=== PATIENT | female | born 1940 | race Hispanic/Latino ===

== ENCOUNTER 2025-01-19 03:42 | Inpatient (IN) | payer MEDICARE, MEDICAID ==
[~2025-01-19] VITALS: Ht 154.9 cm; Wt 48.9 kg
[2025-01-19] VITALS (25 sets, daily range): BP systolic 118–144; BP diastolic 58–72; PULSE 77–88; RESP 14–27; TEMP 97.4–98.2; O2SAT 95–100
[~2025-01-19 03:42] MED LIST: ALBU18HF7 IH; ATOR20TA65 PO; ERGO500093 PO; ESCI5TAB16 PO; FOLI0.8T22 PO; GABA-529 PO; IRON1CAP32 PO; LEVO75CA6 PO; METO25TA6 PO; PROM118S5 PO
--- NOTE | 2025-01-19 03:57 | ERN ---
ED Note History of Present Illness Stated Complaint: SHORTNESS OF BREATH Chief Complaint: Shortness of Breath Time Seen by MD: 03:48 Dictation: This is an 84-year-old female who presented to the emergency department with shortness of breaths. Patient goes to dialysis on Thursday and Saturdays for which she reported that after dialysis she has been feeling very tired. Patient is due for dialysis today however she could not wait until then and became quite dyspneic and hence she was transferred to the emergency room via EMS for further management. Patient is chronically ill-appearing but answers simple questions appropriately. No cough sputum or hemoptysis. No fevers chills or rigors. Temperature 98 pulse 86 respirations 18 blood pressure 140/60 with a pulse o ximetry of 99% on room air Her chronic medical problems include end-stage renal disease, hypertension, and hypothyroidism Allergies: Coded Allergies: iodine (Unverified Allergy, Unknown, 08/25/23) Home Meds Reported Medications Albuterol Sulfate (Albuterol Sulfate) 2.5 Mg/3 Ml (0.083 %) Vial.neb, 1 VIAL NEB Q4HPRN PRN for wheezing, #150 ML 0 Refills 01/19/25 Citalopram Hydrobromide (Citalopram HBr) 10 Mg Tablet, 1 TAB PO DAILY for 30 Days, #30 TAB 0 Refills 25 Midodrine HCl (Midodrine HCl) 5 Mg Tablet, 5 MG PO AD, TAB 25 Folic Acid/Vitamin B Comp W-C (Salud-Miriam Tablet) 0.8 Mg Tablet, 1 TAB PO DAILY for 30 Days, #30 TAB 0 Refills 25 Famotidine (Famotidine) 10 Mg Tablet, 1 TAB PO DAILY for 30 Days, #30 TAB 0 Refills 25 Zinc Sulfate (Zinc Sulfate) 50 Mg Zinc (220 Mg) Tablet, 1 TAB PO DAILY for 30 Days, #30 TAB 0 Refills 1525 Calcium Carbonate (Calcium Carbonate) 500 Mg Calcium (1250 Mg) Tablet, 1 TAB PO AD for 30 Days, #60 TAB 0 Refills 25 Apixaban (Eliquis) 2.5 Mg Tablet, 2.5 MG PO AM, TAB 25 Ipratropium/Albuterol Sulfate (Iprat-Albut 0.5-3(2.5) mg/3 ml) 0.5 Mg-3 Mg (2.5 Mg Base)/3 Ml Ampul.neb, 1 VIAL NEB BID PRN for SHORTNESS OF BREATH/WHEEZING for 30 Days, #180 ML 0 Refills 01/19/25 D-Methorphan Hb/Prometh HCl (Promethazine-Dm Syrup) 6.25 Mg-15 Mg/5 Ml Syrup, 5 ML PO Q6HPRN PRN for COUGH MDD 15MG 12/28/24 Folic Acid/Vitamin B Comp W-C (Salud-Miriam Tablet) 0.8 Mg Tablet, 1 TAB PO DAILY 12/28/24 Iron Fum & P/FA/Vit B & C No.9 (Integra Plus Capsule) 125 Mg Iron-1 Mg Capsule, 1 CAP PO DAILY for 30 Days, #30 CAP 0 Refills 10/05/24 Atorvastatin Calcium (Atorvastatin Calcium) 20 Mg Tablet, 1 TAB PO DAILY for 30 Days, #30 TAB 0 Refills 10/05/24 Albuterol Sulfate (Ventolin Hfa) 90 Mcg Hfa.aer.ad, 2 PUFF IH Q4HPRN PRN for wheezing for 30 Days, #18 GM 0 Refills 10/05/24 Ergocalciferol (Vitamin D2) (Vitamin D2) 1,250 Mcg (21972 Unit) Capsule, 1 CAP PO QWEEK for 28 Days, #4 CAP 0 Refills 10/05/24 Escitalopram Oxalate (Escitalopram Oxalate) 5 Mg Tablet, 1 TAB PO DAILY for 30 Days, #30 TAB 0 Refills 10/05/24 Metoprolol Tartrate (Metoprolol Tartrate) 25 Mg Tablet, 1 TAB PO BID for 30 Days, #60 TAB 0 Refills 10/05/24 Levothyroxine Sodium (Levothyroxine) 75 Mcg Capsule, 1 TAB PO DAILY for 30 Days, #30 CAP 0 Refills 10/05/24 Gabapentin (Gabapentin) 100 Mg Capsule, 1 CAP PO BID for 30 Days, #90 CAP 0 Refills 10/05/24 Past Medical History Past Medical History: High Cholesterol, Hypertension Additional Past Medical Hx: CKD ON DIALYSIS Surgical History: Cholecystectomy, Pacer/AICD, Family History: Negative Social History: Negative History: Not Applicable RN Note Reviewed/Agreed w/PFSH: Yes Review of System Dictation Constitutional: Negative for fever,chills, and weight loss Eyes: Negative for injury, pain,redness, and discharge ENT: Negative for injury,pain or swelling Cardiovascular: Negative for chest pain, palpitations, and edema Respiratory: Positive for shortness of breath, denies cough, and wheezing, Abdomen/GI: Negative for abdominal pain, nausea, vomiting, diarrhea, and constipation Back: Negative for injury and pain : Negative for injury, bleeding and discharge MS/Extremity: Negative for injury and deformity Skin: Negative for rash, and discoloration Neuro: Negative for headache, weakness, numbness, tingling, and seizure Psych: Negative for suicide ideation, homicidal ideation, and hallucinations Initial Vital Sign VS Vital Signs Date Time Temp Pulse Resp B/P (MAP) Pulse Ox O2 Delivery O2 Flow Rate FiO2 01/19/25 04:17 98.4 86 18 140/60 99 Room Air* 0 21 Physical Exam Dictation General: Very chronically ill-appearing elderly female who is sleepy tachypneic Head/Face: Normocephalic, atraumatic Eyes: PERRL, EOMI, vision at baseline ENT: oral cavity clear, TMs clear, no signs of infection Neck: Trachea midline, supple, no nuchal rigidity Cardiovascular: RRR, normal S1/S2, No MRGs, no JVD Respiratory: Decreased breath sounds bilaterally with crackles and rhonchi Abdomen: Soft, non-tender, non-distended, normal bowel sounds, no guarding or rebound. Skin: Warm, dry, normal turgor, no rash MS/Extremity: Pulses equal, no cyanosis, neurovascular intact, FROM Neuro: COAx4, GCS 15, strength 5/5, CN 2-12 intact, normal cerebellar exam, normal gait, Psych: Normal behavior, mood, and affect normal Extremities-trace edema without any palpable cords, Homans sign is negative Results (Laboratory/Radiology) Laboratory/Radiology Laboratory Tests Test 01/19/25 04:03 01/19/25 04:17 White Blood Count 11.5 K/uL (4.8-10.8) H Red Blood Count 1.76 MIL/uL (4.00-5.50) L Hemoglobin 5.2 g/dL (12.0-16.0) *L Hematocrit 16.1 % (36-48) *L Mean Corpuscular Volume 91.5 fL (79-99) Mean Corpuscular Hemoglobin 29.5 pg (27.0-33.0) Mean Corpuscular Hemoglobin Concent 32.3 g/dL (32.0-36.0) Red Cell Distribution Width 15.6 % (11.0-15.5) H Platelet Count 263 K/uL (130-400) Mean Platelet Volume 9.9 fL (7.5-10.5) Immature Granulocyte % (Auto) 1.0 % (0-1) Neutrophils (%) (Auto) 86.3 % (40.0-77.0) H Lymphocytes (%) (Auto) 8.5 % (21.0-51.0) L Monocytes (%) (Auto) 3.8 % (3.0-13.0) Eosinophils (%) (Auto) 0.2 % (0.0-8.0) Basophils (%) (Auto) 0.2 % (0.0-5.0) Neutrophils # (Auto) 9.9 K/uL (1.8-7.7) H Lymphocytes # (Auto) 1.0 K/uL (1.0-4.8) Monocytes # (Auto) 0.4 K/uL (0.1-1.0) Eosinophils # (Auto) 0.02 K/uL (0.00-0.70) Basophils # (Auto) 0.02 K/uL (0.00-0.20) Absolute Immature Granulocyte (auto 0.12 K/uL (0-1) Nucleated Red Blood Cells 0.0 % (0.0-0.19) White Cell Morphology Comment See comments Sodium Level 140 mmol/L (136-145) Potassium Level 3.3 mmol/L (3.5-5.1) L Chloride Level 99 mmol/L (101-111) L Carbon Dioxide Level 30 mmol/L (21-32) Blood Urea Nitrogen 21 mg/dL (7-18) H Creatinine 2.8 mg/dL (0.5-1.0) H Glomerular Filtration Rate Calc 16 mL/min (>90) Random Glucose 122 mg/dL (70-105) H Total Calcium 10.3 mg/dL (8.5-10.1) H Total Creatine Kinase 111 U/L (21-232) # Troponin I High Sensitivity 196.9 ng/L (4-50) *H B-Type Natriuretic Peptide 4590 pg/mL (0-100) H Blood Gas Specimen Type Arterial Arterial Blood pH 7.540 (7.350-7.450) Arterial Blood Partial Pressure CO2 36 mmHg (32-45) Arterial Blood Partial Pressure O2 62.3 mmHg (83.0-108.0) L Arterial Blood HCO3 29.9 mmol/L (21.0-28.0) H Arterial Blood Oxygen Saturation 94.3 % (94.0-98.0) Arterial Blood Base Excess 7.3 mmol/L (-2.0-3.0) H Blood Gas Temperature 37.0 CELSIUS (35.5-37.0) Blood Gas Flow-by 3.00 L/min (0.00-15.00) Blood Gas Vent Mode NC (ROOM AIR) FiO2 32.0 % Blood Gas Specimen Comment RB Labs Reviewed?: Yes ED Course ED Course Orders Procedure Category Date Status Time O2 Nc Keep Sats CPOE 01/19/25 Transmitted Greater 92% 03:49 Notify Md: Spo2 < 88% CPOE 01/19/25 Transmitted 03:49 Cbc With Differential LAB 01/19/25 In Process 03:49 B-Type Natriuretic LAB 01/19/25 In Process Peptide 03:49 Cardiac Panel LAB 01/19/25 In Process 03:49 Chest 1vw RAD 01/19/25 Taken 03:49 12 Lead Ekg Tracing- EKG 01/19/25 Logged Technical 03:49 Basic Metabolic Panel LAB 01/19/25 In Process 03:49 Type And Screen BBK 01/19/25 In Process 04:04 Arterial Blood Gas RT 01/19/25 Transmitted 04:15 Arterial Blood Gas LAB 01/19/25 Complete 04:17 Bipap Settings RT 01/19/25 Transmitted 04:25 Occult Blood Stool LAB 01/19/25 Transmitted Single Only 04:54 Pantoprazole 40mg Inj PHA 01/19/25 Transmitted (Protonix 40mg Inj 05:00 Vital Signs Date Time Temp Pulse Resp B/P (MAP) Pulse Ox O2 Delivery O2 Flow Rate FiO2 01/19/25 04:19 87 27 32 01/19/25 04:17 98.4 86 18 140/60 99 Room Air* 0 21 We will perform diagnostic labs, advanced imaging and administer medications according to the patient's complaint. Once the results are available, will review and personally interpreted the labs to rule out any acute life- threatening emergency the trach require immediate intervention and treatment. I will then re-evaluate the patient after treatment and diagnostic exams have return to determine whether the patient requires any further testing, can safely be discharged home or need further admission to hospital for additional treatment and evaluation. Labs reviewed CBC shows a white count of 11.5 hemoglobin of 5.2 hematocrit 16 platelets 263. BNP 7 shows a hemoglobin of 3.3 BUN and creatinine of 21 and 2.8. Chest x-ray shows bilateral diffuse infiltrates BiPAP initiated to reduce the work of breathing. Arterial blood gas showed a pH of 7.54 pCO2 of 36 PO2 of 62 Stool guaiac requested Type and screen and we will transfuse 2 units PRBC with the dialysis as at this time the blood pressure is very well-maintained at 140/60 Patient will be admitted to the intensive care unit for further management 5:20 a.m. patient accepted by Dr. Zaragoza, for admission and management Medical Decision Making MDM MDM: Differential diagnosis: Pulmonary edema, inadequate dialysis maybe needing readjustment of dry weight, pneumonia, aspiration Rationale: Tests considered and ordered secondary to shared decision making include: labs, ECG and radiology Previous outside records reviewed: Old ER visits. Risk of complication and/or morbidity or mortality of patient management: None Medications-Per medication reconciliation Need for hospitalization: Patient does meet criteria for hospitalization. Need for emergency major/minor surgery: No There are no social concerns with this patient. Prescription drug management Prescriptions will include symptomatic care Patient's prior external medical records from other ER visits were reviewed by me as indicated. Prior testing and results from previous visits were reviewed. Prior tests were taken into account with medical decision making and resource utilization, independent historian/historians were used to obtain complete medical history. I independently interpreted the test that were performed, results were reviewed by me and considered findings on radiology if ordered. Medical management and examination interpretation discussions were had by me with other qualified healthcare professionals as indicated for the patient's care. Problem List Problem List: (1) Respiratory distress (2) Pulmonary edema (3) End-stage renal disease on hemodialysis (4) Severe anemia DX & DISP Disposition: Inpatient Decision to Admit Time: 03:57 Departure Impression: Primary Impression: Respiratory distress Additional Impressions: Pulmonary edema, End-stage renal disease on hemodialysis Condition: Stable Additional Instructions: Patient was informed of all the diagnostic labs and procedures conducted in the emergency room today and demonstrated understanding of the results. I personally reviewed and interpreted all the diagnostic exams performed in the ER today. The patient will be admitted to the hospital for further treatment and evaluation. Disposition-admit to facility Condition-stable/guarded Course-uncertain at this time Pain status-decreased Assessment-exam unchanged Admission Certification- I certify that the patients status is appropriate and is based on my best clinical judgment and the patient's condition as documented in the medical records Referrals: FELIPA KILPATRICK MD (PCP) BARI TOBIAS MD January 19, 2025 03:57
[2025-01-19 04:19] LABS: ABG BASE EXCESS 7.3 mmol/L (-2.0-3.0); ABG HCO3 29.9 mmol/L (21.0-28.0); ABG OXYGEN SATURATION 94.3 % (94.0-98.0); ABG PCO2 36 mmHg (32-45); PO2, ARTERIAL BG 62.3 mmHg (83.0-108.0); VENT MODE, BG NC (ROOM AIR)
[2025-01-19 04:26] LABS: BASOPHILS # (AUTO) 0.02 K/uL (0.00-0.20); BASOPHILS % (AUTO) 0.2 % (0.0-5.0); EOSINOPHILS # (AUTO) 0.02 K/uL (0.00-0.70); EOSINOPHILS % (AUTO) 0.2 % (0.0-8.0); IMMATURE GRANULOCYTE ABSOLUTE 0.12 K/uL (0-1); LYMPHOCYTES % (AUTO) 8.5 % (21.0-51.0); MEAN CORPUSCULAR HEMOGLOBIN 29.5 pg (27.0-33.0); MEAN CORPUSCULAR HGB CONC 32.3 g/dL (32.0-36.0); MEAN CORPUSCULAR VOLUME 91.5 fL (79-99); MONOCYTES # (AUTO) 0.4 K/uL (0.1-1.0); MONOCYTES % (AUTO) 3.8 % (3.0-13.0); NEUTROPHILS # (AUTO) 9.9 K/uL (1.8-7.7); NEUTROPHILS % (AUTO) 86.3 % (40.0-77.0); PLATELET COUNT (AUTO) 263 K/uL (130-400); RED BLOOD CELL COUNT(AUTO) 1.76 MIL/uL (4.00-5.50); RED CELL DISTRIBUTION WIDTH 15.6 % (11.0-15.5); WHITE BLOOD COUNT (AUTO) 11.5 K/uL (4.8-10.8)
[2025-01-19 04:35] LABS: CREATININE 2.8 mg/dL (0.5-1.0); POTASSIUM 3.3 mmol/L (3.5-5.1)
[2025-01-19] MEDS ORDERED: CALC-125 PO (04:44)
[2025-01-19] MEDS ORDERED: MIDO5TAB4 PO (04:44)
[2025-01-19] MEDS ORDERED: FAMO-290 PO (04:44)
[2025-01-19] MEDS ORDERED: ZINC220T5 PO (04:44)
[2025-01-19] MEDS ORDERED: CITA10TA89 PO (04:44)
[2025-01-19] MEDS ORDERED: ALBU2.5V2 NEB (04:44)
[2025-01-19] MEDS ORDERED: APIX2.5T PO (04:44)
[2025-01-19] MEDS ORDERED: IPRA3AMP24 NEB (04:44)
[2025-01-19 04:53] LABS: HEMATOCRIT 16.1 % (36-48)
[2025-01-19 05:21] LABS: B-TYPE NATRIURETIC PEPTIDE 4590 pg/mL (0-100)
--- NOTE | 2025-01-19 06:00 | NUR ---
CALLED PRAKASH WILLSON NP AWARE
--- NOTE | 2025-01-19 06:15 | NUR ---
SECURED CONSENT FOR HD- DR SAYDA BARCENAS. PATIENT IS TO HAVE HD THIS AM- HD [facility]KAEL AWARE WILL SEND LEAN MANUFACTURING COORDINATOR STAFF OSITO PER JILL HERRERA
[2025-01-19] MEDS: Solu-medROL 40MG VIAL IVP SCH (06:23)
[2025-01-19] MEDS: ZOSYN 3.375GM +NS 50ML IVPB SCH (06:23)
[2025-01-19] MEDS: PANTOPrazole 40 MG/VIAL IVP ONE (06:23)
--- NOTE | 2025-01-19 06:35 | NUR ---
SECURED CONSENT FOR BLOOD TRANSFUSION, STARTED 1 UNIT OF PRBC AT ER, STILL HAVE 1 MORE UNIT IN BLOOD BANK
[2025-01-19] MEDS: IpraTROPium/alBUTERol SULFATE 3 ML SOLUTION IH PRN (07:11)
[2025-01-19] MEDS: acetylCYSTeine 20% 200MG/ML 4ML VIAL IH SCH (07:11)
[2025-01-19 07:55] LABS: SARS-CoV-2, RNA, NAAT NEGATIVE SARS CoV-2 (NEGATIVE)
[2025-01-19 07:59] LABS: INFLUENZA TYPE A Negative For Type A (NEGATIVE); INFLUENZA TYPE B Negative For Type B (NEGATIVE)
--- NOTE | 2025-01-19 08:34 | EKG ---
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
--- NOTE | 2025-01-19 09:04 | HMCIMG ---
Exam Type: CHEST 1VW Clinical Information: Dyspnea/SOB Comparison: None Findings: Pulmonary pattern is as before. No worrisome interval changes have taken place. Impression: Stable exam.
[2025-01-19] MEDS: PANTOPrazole 40 MG/VIAL IVP SCH (09:29)
[2025-01-19 09:43] LABS: % IRON SATURATION 85.8 % (22-44)
--- NOTE | 2025-01-19 09:44 | NUR ---
HEMATOLOGY CONSULT: PATIENT REPORT GIVEN TO NURSE FOR DR PETIT.
[2025-01-19] MEDS: HEParin 5,000 UNIT VIAL IRRIG ONE (11:06)
--- NOTE | 2025-01-19 11:30 | NUR ---
INPATIENT HEMODIALYSIS TREATMENT COMPLETE. TOLERATED WELL. 3.1L FLUID REMOVED.
[2025-01-19 11:54] LABS: HEMATOCRIT 32.4 % (36-48)
[2025-01-19 12:01] LABS: RETICULOCYTE % (AUTO) 1.62 % (0.42-2.23)
--- NOTE | 2025-01-19 12:21 | NUR ---
POSITIVE OCCULT STOOL REPORTED TO DR CUBA
[2025-01-19 12:36] LABS: LACTATE DEHYDROGENASE 980 U/L (81-234)
--- NOTE | 2025-01-19 12:36 | HP ---
DATE OF ADMISSION: 01/19/2025 PRESENTING COMPLAINT: Shortness of breath and weakness. HISTORY OF PRESENT ILLNESS: This is an 84-year-old female with a history of ESRD, hypertension and hypothyroidism, who was brought to the Emergency Room with above complaints. The [facility] with weakness and shortness of breath. The patient has end-stage renal disease and is on dialysis. The patient has been compliant with dialysis session. While in the ER, the patient was found with hypoxic respiratory failure and was placed on BiPAP. No documented fever. No documented diarrhea or abdominal pain. The patient found with hemoglobin of 5.2 in the Emergency Room. Initial troponin was 196 and BNP was 4590. The patient denies fever and chills. No chest pain. EKG was unremarkable. PAST MEDICAL HISTORY: * ESRD, on dialysis. * Hypertension. * Hypothyroidism. * Pneumonia. * Anemia. PAST SURGICAL HISTORY: * Pacemaker placement. * section. * Cholecystectomy. * Dialysis access. ALLERGIES: IODINE. HOME MEDICATIONS: Reviewed. SOCIAL HISTORY: No alcohol, tobacco or illicit drug use. FAMILY HISTORY: Positive for hypertension. REVIEW OF SYSTEMS: The patient presents very weak and lethargic, not able to give good history. PHYSICAL EXAMINATION: GENERAL: Elderly female, awake, ill looking. VITAL SIGNS: Temperature 99.0, pulse 84, respirations 18, BP 134/60. EYES: No icterus. Pupils equal and reactive. HENT: No oral thrush seen. Moist oral mucosa. NECK: Supple. No JVD or thyromegaly. LUNGS: Good air entry. Crackles bilaterally. CARDIOVASCULAR: S1, S2 regular. No murmur heard. ABDOMEN: Full, soft, nontender. Bowel sounds are present. CENTRAL NERVOUS SYSTEMS: The patient is awake, bedbound. SKIN: No rashes or itchiness. LYMPHATIC: No peripheral lymphadenopathy. BACK: No deformity. No pressure ulcer. HEMATOLOGIC: No bleeding or petechial lesions. MUSCULOSKELETAL: No joint swelling, erythema, or tenderness. LABORATORY DATA: Troponin 196. BNP 4590. Sodium 140, potassium 3.3, BUN 21, creatinine 2.8. WBC 11.3, hemoglobin 5.2, platelets 263. RADIOLOGY: Chest x-rays shows bilateral infiltrates. ASSESSMENT: An 84-year-old female with end-stage renal disease, on dialysis, presenting with shortness of breath and weakness. Current problems include: * Multifocal pneumonia. * Acute hypoxic respiratory failure. * Multifactorial anemia. * End-stage renal disease, on dialysis. * Hypothyroidism. * Elevated BNP, maybe multifactorial. * Positive troponin. PLAN: * The patient is admitted to ICU. * Troponin will be trended. * The patient needs to start dialysis. * The patient will be given 2 units of the RBC. * Continue Synthroid. * Send stool for occult blood. * Hematology evaluation. * Nephrology evaluation for dialysis. * The patient will be followed up closely. TID: [id number] RECEIPT: [id number] MTD
--- NOTE | 2025-01-19 12:41 | CONS ---
HEMATOLOGY CONSULTATION REASON FOR CONSULTATION: Severe anemia. HISTORY OF PRESENT ILLNESS: This is an 84-year-old female patient with a history of end-stage renal disease, who is on hemodialysis came to the ER with complaints of significant shortness of breath. The patient was started on CPAP. She was found to have severe anemia with hemoglobin of 5.2. Platelet count was 263. There were no complaints of melenotic stools, hematochezia. No recent surgeries or infectious process. She also was found to have fluid retention and started on dialysis, feeling better after 2 units of PRBC. PAST MEDICAL HISTORY: Pertinent for diabetes mellitus, hypercholesterolemia, hypertension, CHF, status post pacemaker placement, end-stage renal disease. 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 No history of smoking or alcohol intake. FAMILY HISTORY: Noncontributory. MEDICATIONS: Medications per the chart. ALLERGIES: No known drug allergies. REVIEW OF SYSTEMS: Per history of present illness. PHYSICAL EXAMINATION: GENERAL: Elderly female patient lying down on CPAP mask, alert, in no acute distress. HEART: Irregularly regular. LUNGS: With diminished breathing sounds in both bases. Occasional crackles. ABDOMEN: Soft, nondistended. No tenderness to palpation. Bowel sounds present. EXTREMITIES: Mild pitting edema at the ankles bilaterally. LABORATORY DATA: Hemoglobin 5.2, hematocrit 16.1, platelet count 263. ASSESSMENT: * Severe anemia. * End-stage renal disease, on hemodialysis. * History of atrial fibrillation and congestive heart failure. PLAN: The patient will be admitted to the hospital. Check stool for occult blood, evaluate for any deficiencies and hemolysis. We will also check for any plasma cell dyscrasia. She will need to continue on Epogen. Follow results. TID: [id number] RECEIPT: [id number]
--- NOTE | 2025-01-19 12:45 | NUR ---
BIPAP PAUSED. PLACED ON 5L NC. TOLERATING WELL. PT ALERT AND ORIENTED. DENIES DIFFICULTY BREATHING. SPO2 97%. WILL CONTINUE TO MONITOR.
--- NOTE | 2025-01-19 13:46 | NUR ---
GI CONSULT: [facility] INFORMAT[facility]
[2025-01-19] MEDS: SODIUM CHLORIDE 3% FOR INHALATION 4 ML/AMP VIAL.NEB IH ONE (14:18)
--- NOTE | 2025-01-19 16:21 | CONS ---
GASTROENTEROLOGY CONSULTATION NOTE Date of Consultation: January 19, 2025 Time of Consultation: 16:19 History of Present Illness: This is an 84-year-old female who is known to services with past medical history of end-stage renal disease on hemodialysis, hypertension, hypothyroidism, pneumonia, anemia she presented from longterm due to weakness and shortness of breath. BNP of 4590. Troponin 196. We were consulted due to severe anemia with hemoglobin 5.2 and a platelet count of 263. She had a positive FOBT. She had EGD last month revealing a large hiatal hernia. She is frail. Review of Systems: CONSTITUTIONAL: No malaise or change in sensation of wellbeing. ENMT: No rhinorrhea, otorrhea, sinus pain, ear ache. CARDIOVASCULAR: No angina, palpitations, orthopnea or paroxysmal dyspnea. RESPIRATORY: No SOB. GASTROINTESTINAL: No abdominal pain, nausea, vomiting, diarrhea, hematemesis, melena or change in the patient's habitual bowel movements consistency/number. GENITOURINARY: No dysuria, hematuria or change in bladder continence. MUSCULOSKELETAL: No new muscle pain or decrease in muscular strength. No new joint swelling, redness or tenderness. SKIN: No new rash. Past Medical History: PAST MEDICAL HISTORY: * ESRD, on dialysis. * Hypertension. * Hypothyroidism. * Pneumonia. * Anemia. PAST SURGICAL HISTORY: * Pacemaker placement. * section. * Cholecystectomy. * Dialysis access. ALLERGIES: IODINE. HOME MEDICATIONS: Reviewed. SOCIAL HISTORY: No alcohol, tobacco or illicit drug use. FAMILY HISTORY: Positive for hypertension. Coded Allergies: iodine (Unverified Allergy, Unknown, 08/25/23) Physical Exam: GEN: Awake, alert, oriented in person, time and place, and in no acute distress. HEENT: No sinus tenderness. Tympanic membranes were not examined. No rhinorrhea. Oral pharyngeal mucosa is pink, moist and within normal limits. Neck is supple with no cervical lymphadenopathy, thyromegaly or JVD. CHEST: Inspection, palpation and percussion of the chest were unremarkable. Lung auscultation revealed normal breath sounds bilaterally. CARDIAC: PMI is within normal limits. Heart sounds are regular. Normal S1, S2. No gallop or murmur. ABD: Soft, non-tender and not distended. No peritoneal signs on palpation. No organomegaly. Normal bowel sounds. EXT: No cyanosis or clubbing. No edema. SKIN: Intact. No rashes. JOINTS: No evidence of synovitis or acute arthritis. NEURO: Alert and oriented to name, place and person. Cranial nerve examination is unremarkable. No focal motor deficits. Normal speech. Gait is normal. Strength is normal. Vital Sign (Last 24 Hours) 01/19/25 01/19/25 09:21 15:57 Temp 97.3 Pulse 82 Resp 13 B/P (MAP) 140/72 Pulse Ox 100 O2 Delivery Nasal Cannula* O2 Flow Rate 3 FiO2 32 Laboratory: [ ] Laboratory: Test 01/19/25 11:39 01/19/25 11:30 01/19/25 06:20 01/19/25 04:17 Range/Units Hemoglobin 10.9 #L 12.0-16.0 g/dL Hematocrit 32.4 #L 36-48 % Reticulocyte Count (auto) 1.64760 0.42-2.23 % Immature Reticulocyte Fraction 30.10 H 0.18-0.48 % Lactate Dehydrogenase 980 H 81-234 U/L Vitamin B12 Level 1444 H 193-986 pg/mL Stool Occult Blood POSITIVE H NEGATIVE Influenza Type A Antigen Negative For Type A NEGATIVE Influenza Type B Antigen Negative For Type B NEGATIVE SARS-CoV-2, RNA, NAAT NEGATIVE SARS CoV-2 NEGATIVE Blood Gas Specimen Type Arterial Arterial Blood pH 7.540 H 7.350-7.450 Arterial Blood Partial Pressure CO2 36 32-45 mmHg Arterial Blood Partial Pressure O2 62.3 L 83.0-108.0 mmHg Arterial Blood HCO3 29.9 H 21.0-28.0 mmol/L Arterial Blood Oxygen Saturation 94.3 94.0-98.0 % Arterial Blood Base Excess 7.3 H -2.0-3.0 mmol/L Blood Gas Temperature 37.0 35.5-37.0 CELSIUS Blood Gas Flow-by 3.00 0.00-15.00 L/min Blood Gas Vent Mode NC ROOM AIR FiO2 32.0 % Blood Gas Specimen Comment TREE QUIGLEY Test 01/19/25 04:03 Range/Units White Blood Count 11.5 H 4.8-10.8 K/uL Red Blood Count 1.76 L 4.00-5.50 MIL/uL Mean Corpuscular Volume 91.5 79-99 fL Mean Corpuscular Hemoglobin 29.5 27.0-33.0 pg Mean Corpuscular Hemoglobin Concent 32.3 32.0-36.0 g/dL Red Cell Distribution Width 15.6 H 11.0-15.5 % Platelet Count 263 130-400 K/uL Mean Platelet Volume 9.9 7.5-10.5 fL Immature Granulocyte % (Auto) 1.0 0-1 % Neutrophils (%) (Auto) 86.3 H 40.0-77.0 % Lymphocytes (%) (Auto) 8.5 L 21.0-51.0 % Monocytes (%) (Auto) 3.8 3.0-13.0 % Eosinophils (%) (Auto) 0.2 0.0-8.0 % Basophils (%) (Auto) 0.2 0.0-5.0 % Neutrophils # (Auto) 9.9 H 1.8-7.7 K/uL Lymphocytes # (Auto) 1.0 1.0-4.8 K/uL Monocytes # (Auto) 0.4 0.1-1.0 K/uL Eosinophils # (Auto) 0.02 0.00-0.70 K/uL Basophils # (Auto) 0.02 0.00-0.20 K/uL Absolute Immature Granulocyte (auto 0.12 0-1 K/uL Nucleated Red Blood Cells 0.0 0.0-0.19 % White Cell Morphology Comment See comments Sodium Level 140 136-145 mmol/L Potassium Level 3.3 L 3.5-5.1 mmol/L Chloride Level 99 L 101-111 mmol/L Carbon Dioxide Level 30 21-32 mmol/L Blood Urea Nitrogen 21 H 7-18 mg/dL Creatinine 2.8 H 0.5-1.0 mg/dL Glomerular Filtration Rate Calc 16 >90 mL/min Random Glucose 122 H 70-105 mg/dL Total Calcium 10.3 H 8.5-10.1 mg/dL Iron Level 133 # 50-170 mcg/dL Total Iron Binding Capacity 155 L 250-450 mcg/dL Percent Iron Saturation 85.8 H 22-44 % Total Creatine Kinase 111 # 21-232 U/L Troponin I High Sensitivity 196.9 *H 4-50 ng/L B-Type Natriuretic Peptide 4590 H 0-100 pg/mL Current Medications Medications (Trade) Dose Ordered Sig/Mg Route PRN Reason Start Time Stop Time Status Last Admin Dose Admin Acetylcysteine (MUComyst 20% 4ML) 600mg = 3ml [id number] IH 01/19/25 06:00 02/18/25 05:59 01/19/25 12:11 800 MG Albuterol (DUOneb) 1 UDVIAL Q6H PRN IH SHORTNESS OF BREATH 01/19/25 06:00 02/18/25 05:59 01/19/25 12:11 1 UDVIAL Methylprednisolone Sodium Succinate (Solu-medROL 40MG) 40 mg Q8H IVP 01/19/25 06:00 02/18/25 05:59 01/19/25 14:14 40 MG Pantoprazole Sodium (PROTonix 40MG INJ) 40 mg BID IVP 01/19/25 09:00 02/18/25 08:59 01/19/25 09:29 40 MG Piperacillin Sod/ Tazobactam Sod (Zosyn 3.375gm+NS 50ml) 3.375 gm Q12H IVPB 01/19/25 06:00 01/29/25 05:59 01/19/25 06:23 3.375 GM Diagnostics / Radiology: [COPY/PASTE HERE IF NO REPORTS PLEASE DELETE SECTION] Assessment: Positive FOBT Acute blood loss anemia ESRD Plan: Tentative plan for EGD in am Patient is poor candidate for colonoscopy Anemia may likely be related to chronic disease Continue GI prophylaxis Advance diet as tolerated Avoid NSAIDs Antireflux measures Monitor H&H and transfuse as needed Call with questions, concerns or change in clinical status Patient to follow-up at clinic post discharge Thank you for this consult MANAS CARRILLO ACQUISITION ADVISOR January 19, 2025 16:21
--- NOTE | 2025-01-19 23:44 | CONS ---
[facility] CONSULTATION NOTE Date Patient Seen: January 19, 2025 Time of Visit: 23:38 Supervising Physician: Dr. Zoë Suggs Reason for Consultation: Acute hypoxemic Primary Care Physician: Belem Sykes MD Outpatient Specialists: [ ] Inpatient Consults: [ ] PROBLEM LIST: Acute hypoxemic respiratory failure. Multifocal pneumonia. Acute anemia with positive FOBT. ESRD on HD. Hypothyroidism. Hypertension. Elevated troponin suspected type 2 SD. HPI: This is a 84-year-old female patient who has past medical history that is significant for ESRD on HD, hypertension, hypothyroidism and anemia. The patient presented to the emergency department as a transfer from the snf facility after developing shortness of breath and generalized weakness. Initial workup showed oxygen supplementation via nasal cannula, vital signs were stable. ABG obtained showed a pH of 7.54, pCO2 36, PO2 62.3 and HC03 of 29.9 with a base excess of 7.3. Laboratory data was notable for a H&H 5.2/16.1 and a platelet count of 263. Chemistry panel was notable for a potassium of 3.3, chloride 99, BUN 21, creatinine of 2.8 and a GFR of 16. Troponin 196.9 and a BNP of 4590. During the stay in the emergency department, the patient became hypoxic and was placed on BiPAP therapy. Stool for occult blood was positive chest x-ray obtained and showed presence of a pacemaker placement and hemodialysis catheter placement. There was also findings consistent with [id number] pulmonary edema. Because of the hypoxemia and need for BiPAP therapy, pulmonology was consulted. No other complaint. PAST MEDICAL HX: see above PAST SURGICAL HX: noncontributory SOCIAL HISTORY: No tobacco, ETOH, or illicit drug use Coded Allergies: iodine (Unverified Allergy, Unknown, 08/25/23) REVIEW OF SYSTEMS: 12 point ROS reviewed with patient. Pertinent positives mentioned above. Otherwise negative. PHYSICAL EXAM: GENERAL: Alert, weak, awake oriented x 3 HEENT: EOMI, Sclera non icteric, moist mucosa NECK: Supple, no JVD, trachea midline LUNGS: Diminished breath sounds bilaterally. No wheezes HEART: Regular rate and rhythm. Normal S1 and S2, without murmurs ABD: Abdomen soft, nontender. Bowel sounds present EXT: No clubbing cyanosis or edema NEURO: Alert and oriented to person, follows commands Vital Signs (last 8hr) Date Time Temp Pulse Resp B/P (MAP) Pulse Ox O2 Delivery O2 Flow Rate FiO2 01/19/25 22:21 98.2 84 18 118/59 97 Nasal Cannula 3.0 01/19/25 20:14 88 20 01/19/25 20:14 88 20 N/Cannula Low lpm 3.5 34 01/19/25 20:04 98.2 84 16 120/55 98 Nasal Cannula* 3 32 01/19/25 18:30 88 18 137/70 95 Nasal Cannula* 3 32 01/19/25 15:57 82 13 140/72 100 Nasal Cannula* 3 32 LABS: Hematology Labs: Test 01/19/25 11:39 01/19/25 04:03 Range/Units Hemoglobin 10.9 #L 12.0-16.0 g/dL Hematocrit 32.4 #L 36-48 % Reticulocyte Count (auto) 1.43888 0.42-2.23 % Immature Reticulocyte Fraction 30.10 H 0.18-0.48 % White Blood Count 11.5 H 4.8-10.8 K/uL Red Blood Count 1.76 L 4.00-5.50 MIL/uL Mean Corpuscular Volume 91.5 79-99 fL Mean Corpuscular Hemoglobin 29.5 27.0-33.0 pg Mean Corpuscular Hemoglobin Concent 32.3 32.0-36.0 g/dL Red Cell Distribution Width 15.6 H 11.0-15.5 % Platelet Count 263 130-400 K/uL Mean Platelet Volume 9.9 7.5-10.5 fL Immature Granulocyte % (Auto) 1.0 0-1 % Neutrophils (%) (Auto) 86.3 H 40.0-77.0 % Lymphocytes (%) (Auto) 8.5 L 21.0-51.0 % Monocytes (%) (Auto) 3.8 3.0-13.0 % Eosinophils (%) (Auto) 0.2 0.0-8.0 % Basophils (%) (Auto) 0.2 0.0-5.0 % Neutrophils # (Auto) 9.9 H 1.8-7.7 K/uL Lymphocytes # (Auto) 1.0 1.0-4.8 K/uL Monocytes # (Auto) 0.4 0.1-1.0 K/uL Eosinophils # (Auto) 0.02 0.00-0.70 K/uL Basophils # (Auto) 0.02 0.00-0.20 K/uL Absolute Immature Granulocyte (auto 0.12 0-1 K/uL Nucleated Red Blood Cells 0.0 0.0-0.19 % White Cell Morphology Comment See comments Chemistry Labs: Test 01/19/25 11:39 01/19/25 04:03 Range/Units Lactate Dehydrogenase 980 H 81-234 U/L Vitamin B12 Level 1444 H 193-986 pg/mL Sodium Level 140 136-145 mmol/L Potassium Level 3.3 L 3.5-5.1 mmol/L Chloride Level 99 L 101-111 mmol/L Carbon Dioxide Level 30 21-32 mmol/L Blood Urea Nitrogen 21 H 7-18 mg/dL Creatinine 2.8 H 0.5-1.0 mg/dL Glomerular Filtration Rate Calc 16 >90 mL/min Random Glucose 122 H 70-105 mg/dL Total Calcium 10.3 H 8.5-10.1 mg/dL Iron Level 133 # 50-170 mcg/dL Total Iron Binding Capacity 155 L 250-450 mcg/dL Percent Iron Saturation 85.8 H 22-44 % Total Creatine Kinase 111 # 21-232 U/L Troponin I High Sensitivity 196.9 *H 4-50 ng/L B-Type Natriuretic Peptide 4590 H 0-100 pg/mL DIAGNOSTICS / RADIOLOGY RESULTS: [ ] PLAN Pulmonology was consulted because of hypoxemia and need for BiPAP therapy. During my visit, the patient was lying in bed. She was back to nasal cannula at 3 L/min. No profound hypoxemia events. We will continue to monitor the patient for now and we will adjust oxygenation as necessary. The patient received transfusion of PRBCs and hemoglobin has improved. Gastroenterology is on board and is pending to see the patient. We will repeat surveillance labs in the morning and follow the H&H trend. We will continue to provide general supportive care, GI and DVT prophylaxis. Further orders per attending MD and hospital course. NEURO: Minimize central acting medications as possible. Maintain fall precautions, adequate lighting during the day PULMONARY: Supplemental 02 as needed. Maintain aspiration precautions at all times CARDIOVASCULAR: Follow hemodynamics. Vital signs per facility protocol GI & NUTRITION: Continue with nutritional support. Continue stool softeners and laxatives as needed. KIDNEYS & ELECTROLYTES: Strict monitoring of intake, output and overall fluid balance. Avoid nephrotoxic medications to the extent possible. Medications to be dosed according to renal function. Monitor electrolytes and replace as needed ENDOCRINE: Maintain blood glucose between 100-180 at all times. Hypoglycemia protocol in place INFECTIOUS DISEASE: Trend temperature, WBC and procalcitonin level Follow cultures, deescalate antibiotics as soon as possible. Panculture if new onset fever ONCOLOGY/HEMATOLOGY/COAGULATION: Monitor for s/s of bleeding Monitor hemoglobin, coagulation studies as needed SKIN: Pressure ulcer prevention per facility protocol Specialty mattress ORTHO/REHAB: Continue PT/OT Prophylaxis: Continue GI and DVT prophylaxis Code Status: Full Resuscitation Disposition: TBD Other: Patient was seen and case discussed with neftaly VALLADARES. Plan was discussed and agreed upon. YOVANI WINCHESTER NURSING SUPPORT WORKER January 19, 2025 23:44
[2025-01-20] VITALS (26 sets, daily range): BP systolic 90–134; BP diastolic 54–72; PULSE 72–98; RESP 14–20; TEMP 97.1–98.4; O2SAT 95–100
--- NOTE | 2025-01-20 06:52 | NUR ---
No family with patient. Call placed to daughter Janneth Hsieh to obtain telephone consent for EGD. States patient had EGD done less than 2 weeks ago and was not given results. States she will come in await to speak with doctor. Refuses to consent to procedure at this time. CHRISTIAN Garcia informed
--- NOTE | 2025-01-20 08:49 | NUR ---
DCP: HOME Sw met with pt who states she lives with daughter Sidra. Pt has provider 22.[address] [facility]. Pt requires assistance with her ADLS, home management and meal prep. Pt has a walker, cane, w/c, shower chair and bsc. Has HH 1x a week. Pt goes to [facility] in [place], by transportation Sw called pt's daughter/VEGA Ulloa [phone]. Per daughter, pt has been at [facility] for 2 weeks for PT. 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 Family on their way to see pt and will discuss adjunct faculty for medical terminology placement. Family will notify CM of decision. Addendum: 01/20/25 at 0855 by KATEY WOO Amended: Links added.
[2025-01-20] MEDS ORDERED: PHARMACY COMMUNICATION 1 EACH EACH MISC SCH (10:00)
--- NOTE | 2025-01-20 10:12 | PN ---
NEPHROLOGY FOLLOWUP NOTE INTERVAL HISTORY: The patient was evaluated this morning, stable overnight per nursing staff. Scheduled for endoscopy this morning. Evaluated by Hematology, Pulmonary. The patient remains generally weak this morning, although answering questions appropriately. PHYSICAL EXAMINATION: CURRENT VITAL SIGNS: Temperature 98.1, pulse 77, blood pressure 119/55, respiratory rate is 18, satting 94% on 3 liters of nasal cannula. GENERAL: The patient is resting comfortably. Again, generally weak appearing, although answering questions. CARDIAC: Regular rhythm and rate. CHEST: Coarse breath sounds anteriorly. ABDOMEN: Soft, nontender. EXTREMITIES: Trace edema. LABORATORY DATA: Labs are pending for this morning, although hemoglobin repeated yesterday morning 10.9, hematocrit 32.4. ASSESSMENT: * End-stage renal disease, on chronic hemodialysis. * Hypokalemia. * Acute pulmonary edema. * Anemia. * Acute hypoxic respiratory failure. * Multifocal pneumonia. * Elevated troponin. * Hypertension. * Leukocytosis. * Hypothyroidism. PLAN: * End-stage renal disease. The patient will dialyze again today and resume her Thursday, Thursday and Thursday schedule, 3-hour treatment, 4K bath, 2.5 calcium bath, UF 1 liter as tolerated. Renal diet, fluid restriction. * Hypokalemia. 4K bath today. Trend labs. * Acute pulmonary edema. UF again 1 liter as tolerated. * Anemia. Resume Epogen. Hematology has been consulted, is scheduled for upper endoscopy. * Acute hypoxic respiratory failure. Has been weaned of to supplemental oxygen. Continue ultrafiltration with hemodialysis. * Pneumonia. Renal dose antibiotics. Follow up cultures. TID: [id number] RECEIPT: [id number]
--- NOTE | 2025-01-20 12:01 | CONS ---
NEPHROLOGY CONSULTATION REASON FOR CONSULTATION: End-stage renal disease, on chronic hemodialysis. HISTORY OF PRESENT ILLNESS: The patient is an 84-year-old female with a history of end-stage renal disease and hypertension, who presents to the ER, transferred from senior living with complaints of generalized weakness, fatigue, and shortness of breath. Lab studies upon admission revealed a hemoglobin of 5.2 with a hematocrit of 16.1. The patient is undergoing blood transfusion. The patient dialyzes Mondays, Wednesdays, and Fridays and has been adherent with her treatments. Nephrology has been consulted to assist with management of hemodialysis during hospitalization. The patient was evaluated in the ER this morning, generally weak appearing. No family present. REVIEW OF SYSTEMS: CONSTITUTIONAL: Denies any fevers or chills. Does complain of excessive fatigue. EYES: Denies any changes in her vision. EARS: Does report decreased hearing. NOSE AND THROAT: No congestion, no sore throat. PULMONARY: Shortness of breath as per HPI and cough. CARDIOVASCULAR: Denies any chest pain or palpitations. GASTROINTESTINAL: Reports poor appetite. MUSCULOSKELETAL: Denies any erythema, joints, or swollen joints. GENITOURINARY: Denies any gross hematuria or dysuria. HEMATOLOGY: Denies acute blood loss. NEUROLOGIC: Denies any focal weakness or syncope. PSYCHIATRIC: Denies any anxiety or depression. 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 PAST SURGICAL HISTORY: Status post pacemaker, renal biopsy, dialysis catheter placement. FAMILY HISTORY: Noncontributory. SOCIAL HISTORY: The patient is a nonsmoker. No alcohol use. ALLERGIES: No known drug allergies. CURRENT MEDICATIONS: Have been reviewed. PHYSICAL EXAMINATION: CURRENT VITAL SIGNS: Temperature is 99.0, pulse 82, blood pressure 134/60, respiratory rate is 14, satting 100% currently on BiPAP. GENERAL: The patient is awake, generally weak appearing, although answering questions appropriately. HEENT: Anicteric sclerae. NECK: Elevated JVD. Supple. HEART: Regular rhythm and rate. CHEST: Coarse breath sounds anteriorly. ABDOMEN: Soft, nontender. EXTREMITIES: Trace edema. LABORATORY DATA: White count 11.5, hemoglobin 5.2, hematocrit 16.1, platelet count 263. Sodium 140, potassium is 3.3, chloride 99, bicarbonate is 30, BUN is 21, creatinine is 2.8, calcium is 10.3. Troponin 196. BNP is 4,590. ASSESSMENT: * End-stage renal disease, on chronic hemodialysis. * Hypokalemia. * Acute pulmonary edema. * Symptomatic anemia. * Acute hypoxic respiratory failure. * Multifocal pneumonia. * Abnormal troponins. * Hypertension. * Leukocytosis. PLAN: * End-stage renal disease. The patient dialyzes Thursday, Thursday, and Thursday and has been adherent with her treatment. Given volume overload, plan for dialysis today, 2 liters as tolerated, 3-hour treatment, increase to 4K bath, 2.5 calcium bath. Renal diet, fluid restriction. The patient will resume routine dialysis again tomorrow. * Hypokalemia. Adjust to a 4K bath today with treatment. May liberalize potassium in diet once resumed. * Acute pulmonary edema. Plan for dialysis today. Extra treatment for ultrafiltration as tolerated. * Anemia, status post transfusion. Continue with Epogen during hospitalization. Hematology has been consulted. * Acute hypoxic respiratory failure. Continue with treatment of infection. Ultrafiltration with dialysis for pulmonary edema. * Bilateral pneumonia. Renal dose antibiotics. Follow up cultures. * Hypertension, currently is stable. TID: [id number] RECEIPT: [id number]
--- NOTE | 2025-01-20 12:08 | PN ---
[facility] PROGRESS NOTE Date Patient Seen: January 20, 2025 Time of Visit: 12:08 Supervising Physician: Dr. Magaña Primary Care Physician: Belem Sykes MD Outpatient Specialists: [ ] Inpatient Consults: [ ] PROBLEM LIST: Acute hypoxemic respiratory failure. Multifocal pneumonia. Acute anemia with positive FOBT. ESRD on HD. Hypothyroidism. Hypertension. Elevated troponin suspected type 2 IA. INTERVAL HISTORY: 01/20/2025: At the time of my evaluation, the patient was lying in bed. Staff nurse reports no acute events overnight. She remains on nasal cannula for oxygen supplementation and vital signs are within normal ranges. Laboratory d neda showed no new laboratory data for review today. No new imaging for today. Plan is for EGD. Nephrology on board for renal management. No other complaint. REVIEW OF SYSTEMS: 12 point ROS reviewed with patient. Pertinent positives mentioned above. Otherwise negative. PHYSICAL EXAM: GENERAL: Alert, weak, awake oriented x 3 HEENT: EOMI, Sclera non icteric, moist mucosa NECK: Supple, no JVD, trachea midline LUNGS: Diminished breath sounds bilaterally. No wheezes HEART: Regular rate and rhythm. Normal S1 and S2, without murmurs ABD: Abdomen soft, nontender. Bowel sounds present EXT: No clubbing cyanosis or edema NEURO: Alert and oriented to person, follows commands Vital Signs (last 8hr) Date Time Temp Pulse Resp B/P (MAP) Pulse Ox O2 Delivery O2 Flow Rate FiO2 01/20/25 11:10 85 20 01/20/25 11:10 85 20 N/Cannula Low lpm 3.0 32 01/20/25 08:22 98.2 95 16 129/67 93 Nasal Cannula 3.0 01/20/25 06:39 90 20 01/20/25 06:39 90 20 N/Cannula Low lpm 3.0 32 01/20/25 04:17 98.1 77 18 119/55 94 Nasal Cannula LABS: Hematology Labs: Test 01/19/25 11:39 01/19/25 04:03 Range/Units Hemoglobin 10.9 #L 12.0-16.0 g/dL Hematocrit 32.4 #L 36-48 % Reticulocyte Count (auto) 1.16897 0.42-2.23 % Immature Reticulocyte Fraction 30.10 H 0.18-0.48 % White Blood Count 11.5 H 4.8-10.8 K/uL Red Blood Count 1.76 L 4.00-5.50 MIL/uL Mean Corpuscular Volume 91.5 79-99 fL Mean Corpuscular Hemoglobin 29.5 27.0-33.0 pg Mean Corpuscular Hemoglobin Concent 32.3 32.0-36.0 g/dL Red Cell Distribution Width 15.6 H 11.0-15.5 % Platelet Count 263 130-400 K/uL Mean Platelet Volume 9.9 7.5-10.5 fL Immature Granulocyte % (Auto) 1.0 0-1 % Neutrophils (%) (Auto) 86.3 H 40.0-77.0 % Lymphocytes (%) (Auto) 8.5 L 21.0-51.0 % Monocytes (%) (Auto) 3.8 3.0-13.0 % Eosinophils (%) (Auto) 0.2 0.0-8.0 % Basophils (%) (Auto) 0.2 0.0-5.0 % Neutrophils # (Auto) 9.9 H 1.8-7.7 K/uL Lymphocytes # (Auto) 1.0 1.0-4.8 K/uL Monocytes # (Auto) 0.4 0.1-1.0 K/uL Eosinophils # (Auto) 0.02 0.00-0.70 K/uL Basophils # (Auto) 0.02 0.00-0.20 K/uL Absolute Immature Granulocyte (auto 0.12 0-1 K/uL Nucleated Red Blood Cells 0.0 0.0-0.19 % White Cell Morphology Comment See comments Chemistry Labs: Test 01/19/25 11:39 01/19/25 04:03 Range/Units Lactate Dehydrogenase 980 H 81-234 U/L Vitamin B12 Level 1444 H 193-986 pg/mL Sodium Level 140 136-145 mmol/L Potassium Level 3.3 L 3.5-5.1 mmol/L Chloride Level 99 L 101-111 mmol/L Carbon Dioxide Level 30 21-32 mmol/L Blood Urea Nitrogen 21 H 7-18 mg/dL Creatinine 2.8 H 0.5-1.0 mg/dL Glomerular Filtration Rate Calc 16 >90 mL/min Random Glucose 122 H 70-105 mg/dL Total Calcium 10.3 H 8.5-10.1 mg/dL Iron Level 133 # 50-170 mcg/dL Total Iron Binding Capacity 155 L 250-450 mcg/dL Percent Iron Saturation 85.8 H 22-44 % Total Creatine Kinase 111 # 21-232 U/L Troponin I High Sensitivity 196.9 *H 4-50 ng/L B-Type Natriuretic Peptide 4590 H 0-100 pg/mL DIAGNOSTICS / RADIOLOGY RESULTS: [ ] PLAN Pulmonology was consulted because of hypoxemia and need for BiPAP therapy. During my visit, the patient was lying in bed. She was back to nasal cannula at 3 L/min. No profound hypoxemia events. We will continue to monitor the patient for now and we will adjust oxygenation as necessary. The patient received transfusion of PRBCs and hemoglobin has improved. Gastroenterology is on board and is pending to see the patient. We will repeat surveillance labs in the morning and follow the H&H trend. We will continue to provide general supportive care, GI and DVT prophylaxis. Further orders per attending MD and hospital course. 01/20/2025: For now, going to continue current management for the patient. We are going to follow gastroenterology plan for possible EGD today. We will repeat surveillance labs in the morning. 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 We will continue to provide general supportive care, GI and DVT prophylaxis. Further orders per attending MD and hospital course. NEURO: Minimize central acting medications as possible. Maintain fall precautions, adequate lighting during the day PULMONARY: Supplemental 02 as needed. Maintain aspiration precautions at all times CARDIOVASCULAR: Follow hemodynamics. Vital signs per facility protocol GI & NUTRITION: Continue with nutritional support. Continue stool softeners and laxatives as needed. KIDNEYS & ELECTROLYTES: Strict monitoring of intake, output and overall fluid balance. Avoid nephrotoxic medications to the extent possible. Medications to be dosed according to renal function. Monitor electrolytes and replace as needed ENDOCRINE: Maintain blood glucose between 100-180 at all times. Hypoglycemia protocol in place INFECTIOUS DISEASE: Trend temperature, WBC and procalcitonin level Follow cultures, deescalate antibiotics as soon as possible. Panculture if new onset fever ONCOLOGY/HEMATOLOGY/COAGULATION: Monitor for s/s of bleeding Monitor hemoglobin, coagulation studies as needed SKIN: Pressure ulcer prevention per facility protocol Specialty mattress ORTHO/REHAB: Continue PT/OT Prophylaxis: Continue GI and DVT prophylaxis Code Status: Full Resuscitation Disposition: TBD Other: Patient was seen and case discussed with neftaly VALLADARES. Plan was discussed and agreed upon. YOVANI [place] [employer]ING [employer] SIGNALER January 20, 2025 12:08
[2025-01-20 12:51] LABS: HEPATITIS B CORE AB TOTAL Non-Reactive (Nonreactive); HEPATITIS B SURFACE ANTIBODY Negative (Reactive); HEPATITIS B SURFACE ANTIGEN Non-Reactive (Nonreactive); HEPATITIS C ANTIBODY Non-Reactive (Nonreactive)
[2025-01-20] MEDS: EPOETIN ALFA-EPBX (NON-ESRD) 10,000 UNIT/ML VIAL IV SCH (15:01)
--- NOTE | 2025-01-20 15:45 | PN ---
GASTROENTEROLOGY PROGRESS NOTE Date of Visit: January 20, 2025 Time of Visit: 15:45 Events / Notes: No acute events overnight. Daughter now agreeable to EGD. Review of Systems: CONSTITUTIONAL: No malaise or change in sensation of wellbeing. ENMT: No rhinorrhea, otorrhea, sinus pain, ear ache. CARDIOVASCULAR: No angina, palpitations, orthopnea or paroxysmal dyspnea. RESPIRATORY: No SOB. GASTROINTESTINAL: No abdominal pain, nausea, vomiting, diarrhea, hematemesis, melena or change in the patient's habitual bowel movements consistency/number. GENITOURINARY: No dysuria, hematuria or change in bladder continence. MUSCULOSKELETAL: No new muscle pain or decrease in muscular strength. No new joint swelling, redness or tenderness. SKIN: No new rash. Physical Exam: GEN: Awake, alert, oriented in person, time and place, and in no acute distress. HEENT: No sinus tenderness. Tympanic membranes were not examined. No rhinorrhea. Oral pharyngeal mucosa is pink, moist and within normal limits. Neck is supple with no cervical lymphadenopathy, thyromegaly or JVD. CHEST: Inspection, palpation and percussion of the chest were unremarkable. Lung auscultation revealed normal breath sounds bilaterally. CARDIAC: PMI is within normal limits. Heart sounds are regular. Normal S1, S2. No gallop or murmur. ABD: Soft, non-tender and not distended. No peritoneal signs on palpation. No organomegaly. Normal bowel sounds. EXT: No cyanosis or clubbing. No edema. SKIN: Intact. No rashes. JOINTS: No evidence of synovitis or acute arthritis. NEURO: Alert and oriented to name, place and person. Cranial nerve examination is unremarkable. No focal motor deficits. Normal speech. Gait is normal. Strength is normal. Vital Signs (last 8hr) Date Time Temp Pulse Resp B/P (MAP) Pulse Ox O2 Delivery O2 Flow Rate FiO2 01/20/25 12:40 98.1 90 16 114/54 98 Nasal Cannula 3.0 01/20/25 11:10 85 20 01/20/25 11:10 85 20 N/Cannula Low lpm 3.0 32 01/20/25 08:22 98.2 95 16 129/67 93 Nasal Cannula 3.0 Laboratory: [ ] Laboratory: Test 01/19/25 11:39 5/15/25 11:30 01/19/25 10:24 01/19/25 06:20 Range/Units Hemoglobin 10.9 #L 12.0-16.0 g/dL Hematocrit 32.4 #L 36-48 % Reticulocyte Count (auto) 1.19043 0.42-2.23 % Immature Reticulocyte Fraction 30.10 H 0.18-0.48 % Lactate Dehydrogenase 980 H 81-234 U/L Vitamin B12 Level 1444 H 193-986 pg/mL Stool Occult Blood POSITIVE H NEGATIVE Hepatitis B Surface Antigen. Non-Reactive Nonreactive Hepatitis B Surface Antibody. Negative L Reactive Hepatitis B Core Total Antibody. Non-Reactive Nonreactive Hepatitis C Antibody Non-Reactive Nonreactive Influenza Type A Antigen Negative For Type A NEGATIVE Influenza Type B Antigen Negative For Type B NEGATIVE SARS-CoV-2, RNA, NAAT NEGATIVE SARS CoV-2 NEGATIVE Test 01/19/25 04:17 01/19/25 04:03 Range/Units Blood Gas Specimen Type Arterial Arterial Blood pH 7.540 H 7.350-7.450 Arterial Blood Partial Pressure CO2 36 32-45 mmHg Arterial Blood Partial Pressure O2 62.3 L 83.0-108.0 mmHg Arterial Blood HCO3 29.9 H 21.0-28.0 mmol/L Arterial Blood Oxygen Saturation 94.3 94.0-98.0 % Arterial Blood Base Excess 7.3 H -2.0-3.0 mmol/L Blood Gas Temperature 37.0 35.5-37.0 CELSIUS Blood Gas Flow-by 3.00 0.00-15.00 L/min Blood Gas Vent Mode NC ROOM AIR FiO2 32.0 % Blood Gas Specimen Comment RB White Blood Count 11.5 H 4.8-10.8 K/uL Red Blood Count 1.76 L 4.00-5.50 MIL/uL Mean Corpuscular Volume 91.5 79-99 fL Mean Corpuscular Hemoglobin 29.5 27.0-33.0 pg Mean Corpuscular Hemoglobin Concent 32.3 32.0-36.0 g/dL Red Cell Distribution Width 15.6 H 11.0-15.5 % Platelet Count 263 130-400 K/uL Mean Platelet Volume 9.9 7.5-10.5 fL Immature Granulocyte % (Auto) 1.0 0-1 % Neutrophils (%) (Auto) 86.3 H 40.0-77.0 % Lymphocytes (%) (Auto) 8.5 L 21.0-51.0 % Monocytes (%) (Auto) 3.8 3.0-13.0 % Eosinophils (%) (Auto) 0.2 0.0-8.0 % Basophils (%) (Auto) 0.2 0.0-5.0 % Neutrophils # (Auto) 9.9 H 1.8-7.7 K/uL Lymphocytes # (Auto) 1.0 1.0-4.8 K/uL Monocytes # (Auto) 0.4 0.1-1.0 K/uL Eosinophils # (Auto) 0.02 0.00-0.70 K/uL Basophils # (Auto) 0.02 0.00-0.20 K/uL Absolute Immature Granulocyte (auto 0.12 0-1 K/uL Nucleated Red Blood Cells 0.0 0.0-0.19 % White Cell Morphology Comment See comments Sodium Level 140 136-145 mmol/L Potassium Level 3.3 L 3.5-5.1 mmol/L Chloride Level 99 L 101-111 mmol/L Carbon Dioxide Level 30 21-32 mmol/L Blood Urea Nitrogen 21 H 7-18 mg/dL Creatinine 2.8 H 0.5-1.0 mg/dL Glomerular Filtration Rate Calc 16 >90 mL/min Random Glucose 122 H 70-105 mg/dL Total Calcium 10.3 H 8.5-10.1 mg/dL Iron Level 133 # 50-170 mcg/dL Total Iron Binding Capacity 155 L 250-450 mcg/dL Percent Iron Saturation 85.8 H 22-44 % Total Creatine Kinase 111 # 21-232 U/L Troponin I High Sensitivity 196.9 *H 4-50 ng/L B-Type Natriuretic Peptide 4590 H 0-100 pg/mL Current Medications Medications (Trade) Dose Ordered Sig/Mg Route PRN Reason Start Time Stop Time Status Last Admin Dose Admin Acetylcysteine (MUComyst 20% 4ML) 600mg = 3ml O3CLPDH IH 01/19/25 06:00 02/18/25 05:59 01/20/25 11:09 800 MG Albuterol (DUOneb) 1 UDVIAL Q6H PRN IH SHORTNESS OF BREATH 01/19/25 06:00 02/18/25 05:59 01/20/25 11:08 1 UDVIAL Epoetin Cayet[place]-epbx (Retacrit) 10,000 unit QMOWEFR IV 01/20/25 09:00 02/19/25 08:59 01/20/25 15:01 10,000 UNIT Methylprednisolone Sodium Succinate (Solu-medROL 40MG) 40 mg Q8H IVP 01/19/25 06:00 02/18/25 05:59 01/20/25 15:01 40 MG Pantoprazole Sodium (PROTonix 40MG INJ) 40 mg BID IVP 01/19/25 09:00 02/18/25 08:59 01/20/25 10:34 40 MG Pharmacy Profile Note (Lace Assessment) 1 each AD MISC 01/20/25 10:00 01/20/25 09:57 DC Piperacillin Sod/ Tazobactam Sod (Zosyn 3.375gm+NS 50ml) 3.375 gm Q12H IVPB 01/19/25 06:00 01/29/25 05:59 01/20/25 06:15 3.375 GM Diagnostics / Radiology: [COPY/PASTE HERE IF NO REPORTS PLEASE DELETE SECTION] Assessment: Positive FOBT Acute blood loss anemia ESRD Plan: Tentative plan for EGD in am Patient is poor candidate for colonoscopy Anemia may likely be related to chronic disease Continue GI prophylaxis Advance diet as tolerated Avoid NSAIDs Antireflux measures Monitor H&H and transfuse as needed Call with questions, concerns or change in clinical status Patient to follow-up at clinic post discharge Thank you for this consult MANAS CARRILLO SECRETARY TO THE VICE PRESIDENT January 20, 2025 15:45
[2025-01-20] MEDS: HEParin 5,000 UNIT VIAL IJ SCH (20:50)
[2025-01-20] MEDS: 0.9%NACL 1000ML 1,000 ML IV SCH (20:51)
--- NOTE | 2025-01-20 22:11 | PN ---
INFECTIOUS DISEASE FOLLOWUP NOTE DATE OF SERVICE: 01/20/2025 SUBJECTIVE: The patient is seen and examined at bedside. No fever or chills. Shortness of breath is much better. The patient is doing well on nasal cannula. No diarrhea. No abdominal pain. No rashes or itchiness. The patient has been evaluated by harvesting manager for possible EGD. PHYSICAL EXAMINATION: VITAL SIGNS: Temperature 97.2. EYES: No icterus. Pupils equal and reactive. HEENT: No oral thrush seen. Moist oral mucosa. NECK: Supple. No JVD or thyromegaly. LUNGS: Good air entry. Few crackles. CARDIOVASCULAR: S1 and S2, regular. No murmur heard. ABDOMEN: Full, soft, nontender. Bowel sounds are present. CENTRAL NERVOUS SYSTEM: Awake, alert and oriented x 3, bedbound debility. SKIN: No rashes. No itchiness. LYMPHATIC: No peripheral lymphadenopathy. BACK: No deformity, no pressure ulcer. MUSCULOSKELETAL: No joint swelling, no erythema or tenderness. ASSESSMENT: An 84-year-old female admitted with shortness of breath and weakness. Current problems include: * Anemia, status post transfusion. * Pneumonia. * Hypoxic respiratory failure. * Elevated troponin. * ____. * Debility. PLAN: * Continue Protonix. * Continue Zosyn. * Followup cultures. * Continue oxygen. * Continue antiemetic. * Monitor electrolytes. * The patient will follow up closely. TID: [id number] RECEIPT: [id number]
[2025-01-21] VITALS (21 sets, daily range): BP systolic 113–152; BP diastolic 52–73; PULSE 77–89; RESP 14–20; TEMP 97.4–99; O2SAT 96–98
[2025-01-21 05:15] LABS: HEMATOCRIT 28.4 % (36-48); MEAN CORPUSCULAR HEMOGLOBIN 30.3 pg (27.0-33.0); MEAN CORPUSCULAR HGB CONC 33.5 g/dL (32.0-36.0); MEAN CORPUSCULAR VOLUME 90.4 fL (79-99); NUCLEATED RED BLOOD CELLS 0.3 % (0.0-0.19); RED BLOOD CELL COUNT(AUTO) 3.14 MIL/uL (4.00-5.50); RED CELL DISTRIBUTION WIDTH 15.7 % (11.0-15.5)
[2025-01-21 05:32] LABS: CREATININE 2.4 mg/dL (0.5-1.0); MAGNESIUM 1.8 mg/dL (1.80-2.40); POTASSIUM 3.4 mmol/L (3.5-5.1)
--- NOTE | 2025-01-21 06:50 | NUR ---
PATIENT TRANSPORTED ON BED TO EGD STUDY AT THIS TIME, PATIENT ON 3LNC, AAOX3.
[2025-01-21] MEDS: ketaMINE HCL 100 MG/ML 5ML VIAL IJ ONE (06:54)
[2025-01-21] MEDS ORDERED: proPOFol 10 MG/ML 20ML VIAL IV ONE (07:09)
[2025-01-21] MEDS ORDERED: LIDOCAINE PF 100MG/5ML (2%) SYRINGE 5ML ONE (07:10)
[2025-01-21] MEDS ORDERED: HEParin 5,000 UNIT VIAL IRRIG SCH (09:30)
--- NOTE | 2025-01-21 10:30 | NUR ---
DCP PENDING Spoke w jose miguel Becerra at the pt's bedside this morning to f/u on dispo. She mentions that they are still pending to finalize decision. She is asking regarding pt's current mobility status. Discussed w primary nurse. Per nurse will obtain PT eval. CM to follow up w recs.
--- NOTE | 2025-01-21 14:13 | PN ---
INFECTIOUS DISEASE PROGRESS NOTE Date of Service: January 21, 2025 SUBJECTIVE: This is an 84-year-old female patient who presented to the hospital for shortness of breaths and weakness. On admission to the hospital she was found with a hemoglobin of 5.2 and was transfused 2 units of PRBC. Hemoglobin this morning is 9.5. We will continue to monitor. The WBC is slightly elevated at 12.0 but no fever, temperature is 97.5. Patient continues on Zosyn IV. No dyspnea observe, patient however remains on oxygen via nasal cannula at 3 L/min. Patient was dialyzed yesterday and 2.5 L were removed. We will continue to monitor patient. PHYSICAL EXAM EYES: Anicteric. Pupils equal and reactive. HENT: No oral thrush seen, moist Oral mucosa NECK: Supple, no JVD or thyromegaly. LUNGS: Good air entry. No rales, no rhonchi. Oxygen support. CARDIOVASCULAR: S1, S2 regular. No murmur heard. ABDOMEN: Soft, non tender, bowel sounds present, no organomegaly CENTRAL NERVOUS SYSTEM: Awake, alert, oriented x 3. SKIN: No rashes, no swelling. LYMPHATICS: No peripheral lymphadenopathy. MUSCULOSKELETAL: No joint swelling, erythema or tenderness. EXTREMITIES: No cyanosis or clubbing. BACK: No deformity, no pressure ulcer. GENITOURINARY: No dysuria or hematuria. Vital Sign (Last 12 Hours) 01/21/25 01/21/25 01/21/25 01/21/25 04:06 06:24 06:24 07:22 Temp 98.1 97.5 Pulse 84 80 80 87 Resp 18 20 20 14 B/P (MAP) 127/69 140/66 Pulse Ox 96 100 O2 Delivery Nasal Cannula N/Cannula Low lpm Nonrebreathing Mask O2 Flow Rate 3.0 10.0 FiO2 32 01/21/25 01/21/25 01/21/25 01/21/25 07:27 07:32 07:37 07:42 Pulse 88 88 87 85 Resp 15 14 14 14 B/P (MAP) 143/70 137/67 136/70 137/68 Pulse Ox 100 100 97 95 O2 Delivery Nonrebreathing Mask Nonrebreathing Mask Nasal Cannula Nasal Cannula O2 Flow Rate 10.0 10.0 3.0 3.0 01/21/25 01/21/25 01/21/25 01/21/25 07:47 07:52 08:00 12:00 Temp 97.3 98.1 97.5 Pulse 86 83 81 87 Resp 14 14 17 20 B/P (MAP) 134/67 132/65 152/68 119/60 Pulse Ox 95 94 94 95 O2 Delivery Nasal Cannula Nasal Cannula Nasal Cannula Nasal Cannula O2 Flow Rate 3.0 3.0 3.0 3.0 01/21/25 13:00 Temp 97.9 Pulse 84 Resp 20 B/P (MAP) 135/66 Pulse Ox 97 O2 Delivery Nasal Cannula O2 Flow Rate 3.0 Intake & Output (last 24hrs) 01/20/25 01/20/25 01/21/25 15:00 23:00 07:00 Intake Total 240 ml 240 ml 50.0 ml Output Total 5450 ml Balance 240 ml -5210 ml 50.0 ml LABS: Laboratory: Test 01/21/25 04:48 Range/Units White Blood Count 12.0 H 4.8-10.8 K/uL Red Blood Count 3.14 L 4.00-5.50 MIL/uL Hemoglobin 9.5 L 12.0-16.0 g/dL Hematocrit 28.4 L 36-48 % Mean Corpuscular Volume 90.4 79-99 fL Mean Corpuscular Hemoglobin 30.3 27.0-33.0 pg Mean Corpuscular Hemoglobin Concent 33.5 32.0-36.0 g/dL Red Cell Distribution Width 15.7 H 11.0-15.5 % Platelet Count 229 130-400 K/uL Mean Platelet Volume 9.5 7.5-10.5 fL Nucleated Red Blood Cells 0.3 H 0.0-0.19 % Sodium Level 141 136-145 mmol/L Potassium Level 3.4 L 3.5-5.1 mmol/L Chloride Level 100 L 101-111 mmol/L Carbon Dioxide Level 30 21-32 mmol/L Blood Urea Nitrogen 18 7-18 mg/dL Creatinine 2.4 H 0.5-1.0 mg/dL Glomerular Filtration Rate Calc 20 >90 mL/min Random Glucose 102 70-105 mg/dL Total Calcium 9.9 8.5-10.1 mg/dL Magnesium Level 1.80 1.80-2.40 mg/dL ASSESSMENT: Severe anemia status post blood transfusion. Pneumonia. Leukocytosis. Elevated troponin. End-stage renal disease, on dialysis. Debility. PLAN: Continue Zosyn. Will monitor hemoglobin and hematocrit. Rodbuster has been consulted. Nephrology has been consulted and dialysis was started. Continue GI prophylaxis. Continue oxygen support. This case was reviewed and discussed with my supervising physician and the above assessment and plan was formulated and agreed upon. ATTESTATION BY PHYSICIAN I have seen and examined the patient. I reviewed the documentation, medical decision making, and treatment plan as noted by the mid-level provider above. I agree with the findings and plan of care. JO CUBA MD, MIRTA L [facility] January 21, 2025 14:13
--- NOTE | 2025-01-21 19:33 | PN ---
[facility] PROGRESS NOTE Date Patient Seen: January 21, 2025 Time of Visit: 19:32 Supervising Physician: Dr. Magaña Primary Care Physician: Belem Sykes MD Outpatient Specialists: [ ] Inpatient Consults: [ ] PROBLEM LIST: Acute hypoxemic respiratory failure. Multifocal pneumonia. Acute anemia with positive FOBT. ESRD on HD. Hypothyroidism. Hypertension. Elevated troponin suspected type 2 MA. Hiatal hernia with few Bobby erosions INTERVAL HISTORY: 01/20/2025: At the time of my evaluation, the patient was lying in bed. Staff nurse reports no acute events overnight. She remains on nasal cannula for oxygen supplementation and vital signs are within normal ranges. Laboratory data showed no new laboratory data for review today. No new imaging for today. Plan is for EGD. Nephrology on board for renal management. No other complaint. 01/21/2025: At the time of my evaluation, the patient was lying in bed. She had recently returned from undergoing EGD. The patient remains on nasal cannula for oxygen supplementation. On the monitor she is hemodynamically stable. Laboratory data today was notable for a slight increase of WBC 12.0. H and H and platelet count showed no major decrease. Chemistry panel was notable for potassium of 3.4. BUN of 18, creatinine of 2.4 and a GFR of 20. Remaining parameters were negative. Based on the EGD report, there was findings of hiatal hernia with few Bobby erosions, biopsies were obtained and sent for pathologic evaluation. No other complaint. REVIEW OF SYSTEMS: 12 point ROS reviewed with patient. Pertinent positives mentioned above. Otherwise negative. PHYSICAL EXAM: GENERAL: Alert, weak, awake oriented x 3 HEENT: EOMI, Sclera non icteric, moist mucosa NECK: Supple, no JVD, trachea midline LUNGS: Diminished breath sounds bilaterally. No wheezes HEART: Regular rate and rhythm. Normal S1 and S2, without murmurs ABD: Abdomen soft, nontender. Bowel sounds present EXT: No clubbing cyanosis or edema NEURO: Alert and oriented to person, follows commands Vital Signs (last 8hr) Date Time Temp Pulse Resp B/P (MAP) Pulse Ox O2 Delivery O2 Flow Rate FiO2 01/21/25 18:21 84 20 01/21/25 18:21 84 20 N/Cannula Low lpm 2.0 28 01/21/25 16:00 99.0 84 20 123/56 95 Nasal Cannula 3.0 01/21/25 13:00 97.9 84 20 135/66 97 Nasal Cannula 3.0 01/21/25 12:00 97.5 87 20 119/60 95 Nasal Cannula 3.0 LABS: Hematology Labs: Test 01/21/25 04:48 Range/Units White Blood Count 12.0 H 4.8-10.8 K/uL Red Blood Count 3.14 L 4.00-5.50 MIL/uL Hemoglobin 9.5 L 12.0-16.0 g/dL Hematocrit 28.4 L 36-48 % Mean Corpuscular Volume 90.4 79-99 fL Mean Corpuscular Hemoglobin 30.3 27.0-33.0 pg Mean Corpuscular Hemoglobin Concent 33.5 32.0-36.0 g/dL Red Cell Distribution Width 15.7 H 11.0-15.5 % Platelet Count 229 130-400 K/uL Mean Platelet Volume 9.5 7.5-10.5 fL Nucleated Red Blood Cells 0.3 H 0.0-0.19 % Chemistry Labs: Test 01/21/25 04:48 Range/Units Sodium Level 141 136-145 mmol/L Potassium Level 3.4 L 3.5-5.1 mmol/L Chloride Level 100 L 101-111 mmol/L Carbon Dioxide Level 30 21-32 mmol/L Blood Urea Nitrogen 18 7-18 mg/dL Creatinine 2.4 H 0.5-1.0 mg/dL Glomerular Filtration Rate Calc 20 >90 mL/min Random Glucose 102 70-105 mg/dL Total Calcium 9.9 8.5-10.1 mg/dL Magnesium Level 1.80 1.80-2.40 mg/dL DIAGNOSTICS / RADIOLOGY RESULTS: [ ] PLAN Pulmonology was consulted because of hypoxemia and need for BiPAP therapy. During my visit, the patient was lying in bed. She was back to nasal cannula at 3 L/min. No profound hypoxemia events. We will continue to monitor the patient for now and we will adjust oxygenation as necessary. The patient received transfusion of PRBCs and hemoglobin has improved. Gastroenterology is on board and is pending to see the patient. We will repeat surveillance labs in the morning and follow the H&H trend. We will continue to provide general supportive care, GI and DVT prophylaxis. Further orders per attending MD and hospital course. 01/20/2025: For now, going to continue current management for the patient. We are going to follow gastroenterology plan for possible EGD today. We will repeat surveillance labs in the morning. Renal management per the flying instructor. We will continue to provide general supportive care, GI and DVT prophylaxis. Further orders per attending MD and hospital course. 01/21/2025: For now, we are going to continue current management for the patient. We are going to monitor the H&H and transfuse as necessary. We will also replace electrolytes as necessary. We will repeat surveillance labs in the morning. We will follow the recommendation of the treating specialist. We will continue to provide general supportive care, GI and DVT prophylaxis. Further orders per attending MD and hospital course NEURO: Minimize central acting medications as possible. Maintain fall precautions, adequate lighting during the day PULMONARY: Supplemental 02 as needed. Maintain aspiration precautions at all times CARDIOVASCULAR: Follow hemodynamics. Vital signs per facility protocol GI & NUTRITION: Continue with nutritional support. Continue stool softeners and laxatives as needed. KIDNEYS & ELECTROLYTES: Strict monitoring of intake, output and overall fluid balance. Avoid nephrotoxic medications to the extent possible. Medications to be dosed according to renal function. Monitor electrolytes and replace as needed ENDOCRINE: Maintain blood glucose between 100-180 at all times. Hypoglycemia protocol in place INFECTIOUS DISEASE: Trend temperature, WBC and procalcitonin level Follow cultures, deescalate antibiotics as soon as possible. Panculture if new onset fever ONCOLOGY/HEMATOLOGY/COAGULATION: Monitor for s/s of bleeding Monitor hemoglobin, coagulation studies as needed SKIN: Pressure ulcer prevention per facility protocol Specialty mattress ORTHO/REHAB: Continue PT/OT Prophylaxis: Continue GI and DVT prophylaxis Code Status: Full Resuscitation Disposition: TBD Other: Patient was seen and case discussed with neftaly VALLADARES. Plan was discussed and agreed upon. YOVANI WINCHESTER NP January 21, 2025 19:33
--- NOTE | 2025-01-21 23:23 | NUR ---
Attempted to contact dr. Zaragoza, but call went to voicemail. Called [facility] spoke to federica cornell. Notified that patient with complaint of pain to buttocks area. Patient stated pain level of 8. Patient was assessed and on assessment found open area to buttocks/coccyx area. Area red, no drainage present. Finding reported to PA. Ordered wound care consult in am, venelex bid, tylenol 650mg po q6hrs prn, tramadol 25mg po q6hrs prn.
[2025-01-21] MEDS ORDERED: traMADol HCL 50 MG TABLET PO PRN (23:30)
[2025-01-21] MEDS: BALSAM PERU/CASTOR OIL 60 GM TUBE TP SCH (23:36)
[2025-01-21] MEDS: acetaMINOPHEN 325 MG TAB PO PRN (23:37)
[2025-01-22] VITALS (11 sets, daily range): BP systolic 130–146; BP diastolic 65–79; PULSE 75–85; RESP 17–20; TEMP 97.6–98.7; O2SAT 94–98
[2025-01-22 03:57] LABS: BASOPHILS # (AUTO) 0.04 K/uL (0.00-0.20); BASOPHILS % (AUTO) 0.3 % (0.0-5.0); EOSINOPHILS # (AUTO) 0.04 K/uL (0.00-0.70); EOSINOPHILS % (AUTO) 0.3 % (0.0-8.0); HEMATOCRIT 28.7 % (36-48); IMMATURE GRANULOCYTE ABSOLUTE 0.31 K/uL (0-1); LYMPHOCYTES # (AUTO) 0.4 K/uL (1.0-4.8); LYMPHOCYTES % (AUTO) 3.6 % (21.0-51.0); MEAN CORPUSCULAR HEMOGLOBIN 30.3 pg (27.0-33.0); MEAN CORPUSCULAR HGB CONC 32.4 g/dL (32.0-36.0); MEAN CORPUSCULAR VOLUME 93.5 fL (79-99); MONOCYTES # (AUTO) 0.2 K/uL (0.1-1.0); MONOCYTES % (AUTO) 1.4 % (3.0-13.0); NEUTROPHILS # (AUTO) 11.2 K/uL (1.8-7.7); NEUTROPHILS % (AUTO) 91.9 % (40.0-77.0); NUCLEATED RED BLOOD CELLS 0.5 % (0.0-0.19); PLATELET COUNT (AUTO) 217 K/uL (130-400); RED BLOOD CELL COUNT(AUTO) 3.07 MIL/uL (4.00-5.50); RED CELL DISTRIBUTION WIDTH 15.8 % (11.0-15.5); WHITE BLOOD COUNT (AUTO) 12.2 K/uL (4.8-10.8)
[2025-01-22 04:16] LABS: CREATININE 3.8 mg/dL (0.5-1.0); MAGNESIUM 1.8 mg/dL (1.80-2.40); POTASSIUM 3.3 mmol/L (3.5-5.1)
--- NOTE | 2025-01-22 10:37 | PN ---
INFECTIOUS DISEASE PROGRESS NOTE Date of Service: January 22, 2025 SUBJECTIVE: This is an 84-year-old female patient who was seen and examined at bedside in room 225. During rounding this morning patient is still sleepy but able to answer simple questions. No dyspnea and saturating 96% on oxygen via nasal cannula at3 L/min. Patient is s/p EGD with findings of large hiatal hernia and gastritis day # 1. Hemoglobin is stable at 9.3 today. Continues on Epogen 10,000 units IV every --. Potassium level is 3.3, however being addressed by Nephrology during dialysis. No fever, temperature is 98.6. Continues on Zosyn IV. We will continue to monitor patient. PHYSICAL EXAM EYES: Anicteric. Pupils equal and reactive. HENT: No oral thrush seen, moist Oral mucosa NECK: Supple, no JVD or thyromegaly. LUNGS: Good air entry. No rales, no rhonchi. Oxygen support. CARDIOVASCULAR: S1, S2 regular. No murmur heard. ABDOMEN: Soft, non tender, bowel sounds present, no organomegaly CENTRAL NERVOUS SYSTEM: Awake, alert, oriented x 3. SKIN: No rashes, no swelling. LYMPHATICS: No peripheral lymphadenopathy. MUSCULOSKELETAL: No joint swelling, erythema or tenderness. EXTREMITIES: No cyanosis or clubbing. BACK: No deformity, no pressure ulcer. GENITOURINARY: No dysuria or hematuria. Vital Sign (Last 12 Hours) 01/21/25 01/21/25 01/22/25 01/22/25 23:00 23:14 03:00 06:14 Temp 97.5 98.2 Pulse 82 78 80 78 Resp 18 20 18 20 B/P (MAP) 127/53 142/78 Pulse Ox 95 96 O2 Delivery Nasal Cannula Nasal Cannula O2 Flow Rate 3.0 3.0 01/22/25 01/22/25 06:14 07:49 Temp 98.6 Pulse 78 83 Resp 20 20 B/P (MAP) 134/73 Pulse Ox 96 O2 Delivery N/Cannula Low lpm Nasal Cannula O2 Flow Rate 2.0 3.0 FiO2 28 LABS: Laboratory: Test 01/22/25 03:27 01/21/25 20:22 Range/Units White Blood Count 12.2 H 4.8-10.8 K/uL Red Blood Count 3.07 L 4.00-5.50 MIL/uL Hemoglobin 9.3 L 12.0-16.0 g/dL Hematocrit 28.7 L 36-48 % Mean Corpuscular Volume 93.5 79-99 fL Mean Corpuscular Hemoglobin 30.3 27.0-33.0 pg Mean Corpuscular Hemoglobin Concent 32.4 32.0-36.0 g/dL Red Cell Distribution Width 15.8 H 11.0-15.5 % Platelet Count 217 130-400 K/uL Mean Platelet Volume 9.6 7.5-10.5 fL Immature Granulocyte % (Auto) 2.5 H 0-1 % Neutrophils (%) (Auto) 91.9 H 40.0-77.0 % Lymphocytes (%) (Auto) 3.6 L 21.0-51.0 % Monocytes (%) (Auto) 1.4 L 3.0-13.0 % Eosinophils (%) (Auto) 0.3 0.0-8.0 % Basophils (%) (Auto) 0.3 0.0-5.0 % Neutrophils # (Auto) 11.2 H 1.8-7.7 K/uL Lymphocytes # (Auto) 0.4 L 1.0-4.8 K/uL Monocytes # (Auto) 0.2 0.1-1.0 K/uL Eosinophils # (Auto) 0.04 0.00-0.70 K/uL Basophils # (Auto) 0.04 0.00-0.20 K/uL Absolute Immature Granulocyte (auto 0.31 0-1 K/uL Nucleated Red Blood Cells 0.5 H 0.0-0.19 % Sodium Level 139 136-145 mmol/L Potassium Level 3.3 L 3.5-5.1 mmol/L Chloride Level 98 L 101-111 mmol/L Carbon Dioxide Level 29 21-32 mmol/L Blood Urea Nitrogen 34 H 7-18 mg/dL Creatinine 3.8 H 0.5-1.0 mg/dL Glomerular Filtration Rate Calc 11 >90 mL/min Random Glucose 127 H 70-105 mg/dL Total Calcium 10.1 8.5-10.1 mg/dL Magnesium Level 1.80 1.80-2.40 mg/dL Whole Blood Glucose 140 H 70-110 MG/DL ASSESSMENT: Severe anemia requiring blood transfusion, s/p EGD with findings of large hiatal hernia and gastritis. Pneumonia. Leukocytosis. Elevated troponin. End-stage renal disease, on dialysis. Debility. PLAN: Continue Zosyn. Will monitor hemoglobin and hematocrit. Continue Epogen as recommended by Powerplant Operator. Continue dialysis as recommended by Nephrology. Continue GI prophylaxis. Continue oxygen support. This case was reviewed and discussed with my supervising physician and the above assessment and plan was formulated and agreed upon. ATTESTATION BY PHYSICIAN I have seen and examined the patient. I reviewed the documentation, medical decision making, and treatment plan as noted by the mid-level provider above. I agree with the findings and plan of care. JO CUBA MD, MIRTA L [facility] January 22, 2025 10:36
--- NOTE | 2025-01-22 12:12 | PN ---
[facility] PROGRESS NOTE Date Patient Seen: January 22, 2025 Time of Visit: 12:11 Supervising Physician: Dr. Magaña Primary Care Physician: Belem Sykes MD Outpatient Specialists: [ ] Inpatient Consults: [ ] PROBLEM LIST: Acute hypoxemic respiratory failure. Multifocal pneumonia. Acute anemia with positive FOBT. ESRD on HD. Hypothyroidism. Hypertension. Elevated troponin suspected type 2 VT. Hiatal hernia with few Bobby erosions INTERVAL HISTORY: 01/20/2025: At the time of my evaluation, the patient was lying in bed. Staff nurse reports no acute events overnight. She remains on nasal cannula for oxygen supplementation and vital signs are within normal ranges. Laboratory data showed no new laboratory data for review today. No new imaging for today. Plan is for EGD. Nephrology on board for renal management. No other complaint. 01/21/2025: At the time of my evaluation, the patient was lying in bed. She had recently returned from undergoing EGD. The patient remains on nasal cannula for oxygen supplementation. On the monitor she is hemodynamically stable. Laboratory data today was notable for a slight increase of WBC 12.0. H and H and platelet count showed no major decrease. Chemistry panel was notable for potassium of 3.4. BUN of 18, creatinine of 2.4 and a GFR of 20. Remaining parameters were negative. Based on the EGD report, there was findings of hiatal hernia with few Bobby erosions, biopsies were obtained and sent for pathologic evaluation. No other complaint. 01/22/2025: At the time of my evaluation, the patient is lying in bed. She reports feeling much better today. On the monitor, she is hemodynamically stable and on nasal cannula for oxygen supplementation. Laboratory data today showed a WBC of 12.2, no profound anemia or thrombocytopenia. Chemistry panel w as notable for a potassium of 3.3, renal parameters shows BUN of 34, creatinine of 3.8 and a GFR of 11. Mag of 1.80. No new chest imaging for today. No other complaint. REVIEW OF SYSTEMS: 12 point ROS reviewed with patient. Pertinent positives mentioned above. Otherwise negative. PHYSICAL EXAM: GENERAL: Alert, weak, awake oriented x 3 HEENT: EOMI, Sclera non icteric, moist mucosa NECK: Supple, no JVD, trachea midline LUNGS: Diminished breath sounds bilaterally. No wheezes HEART: Regular rate and rhythm. Normal S1 and S2, without murmurs ABD: Abdomen soft, nontender. Bowel sounds present EXT: No clubbing cyanosis or edema NEURO: Alert and oriented to person, follows commands Vital Signs (last 8hr) Date Time Temp Pulse Resp B/P (MAP) Pulse Ox O2 Delivery O2 Flow Rate FiO2 01/22/25 12:00 97.9 85 20 132/65 96 Nasal Cannula 3.0 01/22/25 11:25 83 20 N/Cannula Low lpm 2.0 28 01/22/25 11:25 83 20 01/22/25 07:49 98.6 83 20 134/73 96 Nasal Cannula 3.0 01/22/25 06:14 78 20 N/Cannula Low lpm 2.0 28 01/22/25 06:14 78 20 LABS: Hematology Labs: Test 01/22/25 03:27 Range/Units White Blood Count 12.2 H 4.8-10.8 K/uL Red Blood Count 3.07 L 4.00-5.50 MIL/uL Hemoglobin 9.3 L 12.0-16.0 g/dL Hematocrit 28.7 L 36-48 % Mean Corpuscular Volume 93.5 79-99 fL Mean Corpuscular Hemoglobin 30.3 27.0-33.0 pg Mean Corpuscular Hemoglobin Concent 32.4 32.0-36.0 g/dL Red Cell Distribution Width 15.8 H 11.0-15.5 % Platelet Count 217 130-400 K/uL Mean Platelet Volume 9.6 7.5-10.5 fL Immature Granulocyte % (Auto) 2.5 H 0-1 % Neutrophils (%) (Auto) 91.9 H 40.0-77.0 % Lymphocytes (%) (Auto) 3.6 L 21.0-51.0 % Monocytes (%) (Auto) 1.4 L 3.0-13.0 % Eosinophils (%) (Auto) 0.3 0.0-8.0 % Basophils (%) (Auto) 0.3 0.0-5.0 % Neutrophils # (Auto) 11.2 H 1.8-7.7 K/uL Lymphocytes # (Auto) 0.4 L 1.0-4.8 K/uL Monocytes # (Auto) 0.2 0.1-1.0 K/uL Eosinophils # (Auto) 0.04 0.00-0.70 K/uL Basophils # (Auto) 0.04 0.00-0.20 K/uL Absolute Immature Granulocyte (auto 0.31 0-1 K/uL Nucleated Red Blood Cells 0.5 H 0.0-0.19 % Chemistry Labs: Test 01/22/25 03:27 01/21/25 20:22 Range/Units Sodium Level 139 136-145 mmol/L Potassium Level 3.3 L 3.5-5.1 mmol/L Chloride Level 98 L 101-111 mmol/L Carbon Dioxide Level 29 21-32 mmol/L Blood Urea Nitrogen 34 H 7-18 mg/dL Creatinine 3.8 H 0.5-1.0 mg/dL Glomerular Filtration Rate Calc 11 >90 mL/min Random Glucose 127 H 70-105 mg/dL Total Calcium 10.1 8.5-10.1 mg/dL Magnesium Level 1.80 1.80-2.40 mg/dL Whole Blood Glucose 140 H 70-110 MG/DL DIAGNOSTICS / RADIOLOGY RESULTS: [ ] PLAN Pulmonology was consulted because of hypoxemia and need for BiPAP therapy. During my visit, the patient was lying in bed. She was back to nasal cannula at 3 L/min. No profound hypoxemia events. We will continue to monitor the patient for now and we will adjust oxygenation as necessary. The patient received transfusion of PRBCs and hemoglobin has improved. Gastroenterology is on board and is pending to see the patient. We will repeat surveillance labs in the morning and follow the H&H trend. We will continue to provide general supportive care, GI and DVT prophylaxis. Further orders per attending MD and hospital course. 01/20/2025: For now, going to continue current management for the patient. We are going to follow gastroenterology plan for possible EGD today. We will repeat surveillance labs in the morning. Renal management per the drywall sprayer. We will continue to provide general supportive care, GI and DVT prophylaxis. Further orders per attending MD and hospital course. 01/21/2025: For now, we are going to continue current management for the patient. We are going to monitor the H&H and transfuse as necessary. We will also replace electrolytes as necessary. We will repeat surveillance labs in the morning. We will follow the recommendation of the treating specialist. We will continue to provide general supportive care, GI and DVT prophylaxis. Further orders per attending MD and hospital course. 01/22/2025: For now, going to continue current management for the patient. Pulmonary jones, she remains on nasal cannula and with optimal oxygen saturation. No new chest imaging for review today. Patient is a correction facility resident and family service caseworker is working on disposition plans. We will continue to monitor the patient's for now. We will continue to provide general supportive care, GI and DVT prophylaxis. Further orders per attending MD and hospital course. NEURO: Minimize central acting medications as possible. Maintain fall precautions, adequate lighting during the day PULMONARY: Supplemental 02 as needed. Maintain aspiration precautions at all times CARDIOVASCULAR: Follow hemodynamics. Vital signs per facility protocol GI & NUTRITION: Continue with nutritional support. Continue stool softeners and laxatives as needed. KIDNEYS & ELECTROLYTES: Strict monitoring of intake, output and overall fluid balance. Avoid nephrotoxic medications to the extent possible. Medications to be dosed according to renal function. Monitor electrolytes and replace as needed ENDOCRINE: Maintain blood glucose between 100-180 at all times. Hypoglycemia protocol in place INFECTIOUS DISEASE: Trend temperature, WBC and procalcitonin level Follow cultures, deescalate antibiotics as soon as possible. Panculture if new onset fever ONCOLOGY/HEMATOLOGY/COAGULATION: Monitor for s/s of bleeding Monitor hemoglobin, coagulation studies as needed SKIN: Pressure ulcer prevention per facility protocol Specialty mattress ORTHO/REHAB: Continue PT/OT Prophylaxis: Continue GI and DVT prophylaxis Code Status: Full Resuscitation Disposition: TBD Other: Patient was seen and case discussed with neftaly VALLADARES. Plan was discussed and agreed upon. YOVANI WINCHESTER NP January 22, 2025 12:12
[2025-01-22] MEDS: DiphenhydrAMINE HCL 25 MG CAPSULE PO PRN (12:51)
[2025-01-22] MEDS: metoPROLOL tartRATE 25 MG TAB PO SCH (20:19)
[2025-01-23] VITALS (27 sets, daily range): BP systolic 100–145; BP diastolic 50–80; PULSE 65–76; RESP 16–20; TEMP 97.6–98.4; O2SAT 97–98
[2025-01-23] MEDS: levoTHYROxine 75 MCG TABLET PO SCH (06:36)
--- NOTE | 2025-01-23 07:09 | NUR ---
DR GUNN ROUNDED AND SAW PATIENT
--- NOTE | 2025-01-23 07:43 | PN ---
GASTROENTEROLOGY PROGRESS NOTE Date of Visit: January 23, 2025 Time of Visit: 07:43 Events / Notes: No acute events overnight. Review of Systems: CONSTITUTIONAL: No malaise or change in sensation of wellbeing. ENMT: No rhinorrhea, otorrhea, sinus pain, ear ache. CARDIOVASCULAR: No angina, palpitations, orthopnea or paroxysmal dyspnea. RESPIRATORY: No SOB. GASTROINTESTINAL: No abdominal pain, nausea, vomiting, diarrhea, hematemesis, melena or change in the patient's habitual bowel movements consistency/number. GENITOURINARY: No dysuria, hematuria or change in bladder continence. MUSCULOSKELETAL: No new muscle pain or decrease in muscular strength. No new joint swelling, redness or tenderness. SKIN: No new rash. Physical Exam: GEN: Awake, alert, oriented in person, time and place, and in no acute distress. HEENT: No sinus tenderness. Tympanic membranes were not examined. No rhinorrhea. Oral pharyngeal mucosa is pink, moist and within normal limits. Neck is supple with no cervical lymphadenopathy, thyromegaly or JVD. CHEST: Inspection, palpation and percussion of the chest were unremarkable. Lung auscultation revealed normal breath sounds bilaterally. CARDIAC: PMI is within normal limits. Heart sounds are regular. Normal S1, S2. No gallop or murmur. ABD: Soft, non-tender and not distended. No peritoneal signs on palpation. No organomegaly. Normal bowel sounds. EXT: No cyanosis or clubbing. No edema. SKIN: Intact. No rashes. JOINTS: No evidence of synovitis or acute arthritis. NEURO: Alert and oriented to name, place and person. Cranial nerve examination is unremarkable. No focal motor deficits. Normal speech. Gait is normal. Strength is normal. Vital Signs (last 8hr) Date Time Temp Pulse Resp B/P (MAP) Pulse Ox O2 Delivery O2 Flow Rate FiO2 01/23/25 06:34 68 20 01/23/25 06:33 68 20 N/Cannula Low lpm 2.0 01/23/25 06:31 68 20 01/23/25 03:00 98.1 74 18 143/76 95 Room Air Laboratory: [ ] Laboratory: Test 01/22/25 03:27 01/21/25 20:22 Range/Units White Blood Count 12.2 H 4.8-10.8 K/uL Red Blood Count 3.07 L 4.00-5.50 MIL/uL Hemoglobin 9.3 L 12.0-16.0 g/dL Hematocrit 28.7 L 36-48 % Mean Corpuscular Volume 93.5 79-99 fL Mean Corpuscular Hemoglobin 30.3 27.0-33.0 pg Mean Corpuscular Hemoglobin Concent 32.4 32.0-36.0 g/dL Red Cell Distribution Width 15.8 H 11.0-15.5 % Platelet Count 217 130-400 K/uL Mean Platelet Volume 9.6 7.5-10.5 fL Immature Granulocyte % (Auto) 2.5 H 0-1 % Neutrophils (%) (Auto) 91.9 H 40.0-77.0 % Lymphocytes (%) (Auto) 3.6 L 21.0-51.0 % Monocytes (%) (Auto) 1.4 L 3.0-13.0 % Eosinophils (%) (Auto) 0.3 0.0-8.0 % Basophils (%) (Auto) 0.3 0.0-5.0 % Neutrophils # (Auto) 11.2 H 1.8-7.7 K/uL Lymphocytes # (Auto) 0.4 L 1.0-4.8 K/uL Monocytes # (Auto) 0.2 0.1-1.0 K/uL Eosinophils # (Auto) 0.04 0.00-0.70 K/uL Basophils # (Auto) 0.04 0.00-0.20 K/uL Absolute Immature Granulocyte (auto 0.31 0-1 K/uL Nucleated Red Blood Cells 0.5 H 0.0-0.19 % Sodium Level 139 136-145 mmol/L Potassium Level 3.3 L 3.5-5.1 mmol/L Chloride Level 98 L 101-111 mmol/L Carbon Dioxide Level 29 21-32 mmol/L Blood Urea Nitrogen 34 H 7-18 mg/dL Creatinine 3.8 H 0.5-1.0 mg/dL Glomerular Filtration Rate Calc 11 >90 mL/min Random Glucose 127 H 70-105 mg/dL Total Calcium 10.1 8.5-10.1 mg/dL Magnesium Level 1.80 1.80-2.40 mg/dL Whole Blood Glucose 140 H 70-110 MG/DL Current Medications Medications (Trade) Dose Ordered Sig/Mg Route PRN Reason Start Time Stop Time Status Last Admin Dose Admin Acetaminophen (TYLenol 325MG TAB) 650 mg Q6H6 PRN PO pain 01/21/25 23:30 02/20/25 23:29 01/21/25 23:37 650 MG Acetylcysteine (MUComyst 20% 4ML) 600mg = 3ml [id number] IH 01/19/25 06:00 02/18/25 05:59 01/23/25 06:29 600 MG Albuterol (DUOneb) 1 UDVIAL Q6H PRN IH SHORTNESS OF BREATH 01/19/25 06:00 02/18/25 05:59 01/23/25 06:29 1 UDVIAL Atorvastatin Calcium (LIPItor 20MG) 20 mg DAILY PO 01/23/25 09:00 02/22/25 08:59 Diphenhydramine HCl (BENAdryl CAP) 25 mg Q8H PRN PO ITCHING 01/22/25 12:30 02/21/25 12:29 01/22/25 12:51 25 MG Epoetin Cayetano-epbx (Retacrit) 10,000 unit QMOWEFR IV 01/20/25 09:00 02/19/25 08:59 01/20/25 15:01 10,000 UNIT Heparin Sodium (Porcine) (HEParin 5,000 UNIT VIAL) 5,000 unit AD IJ 01/20/25 20:30 01/21/25 09:22 DC 01/20/25 20:50 5,000 UNIT Heparin Sodium (Porcine) (HEParin 5,000 UNIT VIAL) 5,000 unit AD IRRIG 01/21/25 09:30 02/19/25 20:29 Levothyroxine Sodium (SYNTHroid 75MCG TAB) 75 mcg SYN PO 01/23/25 06:30 02/22/25 06:29 01/23/25 06:36 75 MCG Methylprednisolone Sodium Succinate (Solu-medROL 40MG) 40 mg Q8H IVP 01/19/25 06:00 02/18/25 05:59 01/23/25 06:36 40 MG Metoprolol Tartrate (loprESSOR) 25 mg BID PO 01/22/25 21:00 02/21/25 20:59 01/22/25 20:19 25 MG Pantoprazole Sodium (PROTonix 40MG INJ) 40 mg BID IVP 01/19/25 09:00 02/18/25 08:59 01/22/25 22:39 40 MG Pharmacy Profile Note (Lace Assessment) 1 each AD MISC 01/20/25 10:00 01/20/25 09:57 DC Piperacillin Sod/ Tazobactam Sod (Zosyn 3.375gm+NS 50ml) 3.375 gm Q12H IVPB 01/19/25 06:00 01/29/25 05:59 01/23/25 06:36 3.375 GM Sodium Chloride 1,000 ml @ 0 mls/hr ONCE IV 01/20/25 18:00 01/21/25 17:59 DC 01/20/25 20:51 333 MLS/HR Tramadol HCl (UltRAM) 25 mg Q6H PRN PO PAIN LEVEL 7 TO 10 01/21/25 23:30 01/26/25 23:29 Vitamin B Complex/ Vit C/Folic Acid (Nephrovite Tablet) 1 cap DAILY PO 01/23/25 09:00 02/22/25 08:59 Wound Care/ Dressing Products (Venelex Ointment) apply to buttocks/ coccyx o... BID TP 01/21/25 23:40 02/20/25 23:39 01/22/25 20:19 1 GM Diagnostics / Radiology: [COPY/PASTE HERE IF NO REPORTS PLEASE DELETE SECTION] Assessment: Positive FOBT Acute blood loss anemia ESRD Plan: Patient is poor candidate for colonoscopy Anemia may likely be related to chronic disease Continue GI prophylaxis Advance diet as tolerated Avoid NSAIDs Antireflux measures Monitor H&H and transfuse as needed Call with questions, concerns or change in clinical status Patient to follow-up at clinic post discharge Thank you for this consult MANAS CARRILLO BLAST HOLE DRILLER January 23, 2025 07:43
[2025-01-23] MEDS: atorVAStatin 20 MG TABLET PO SCH (08:29)
[2025-01-23] MEDS: Vitamin B Complex/Vit C/Folic Acid PO SCH (09:00)
[2025-01-23] MEDS: 0.9%NACL 1000ML 1,000 ML IV SCH (10:24)
[2025-01-23] MEDS: HEParin 5,000 UNIT VIAL IRRIG SCH (12:30)
--- NOTE | 2025-01-23 14:10 | NUR ---
[facility] Consult: Patient assessed by wound healing team. See wound assessment. Assessment and recommendations provided to primary nurse. Education provided. Addendum: 01/25/25 at 0920 by YI HEWITT RN RN/ Amended: Links added.
--- NOTE | 2025-01-23 17:10 | PN ---
INFECTIOUS DISEASE PROGRESS NOTE Date of Service: January 23, 2025 SUBJECTIVE: This is an 84-year-old female patient who was seen and examined at bedside in room 225. Patient is awake, alert and answering questions appropriately. Patient is s/p EGD on 01/21/2025 with findings of large hiatal hernia and gastritis. No dyspnea observe and remains on oxygen via nasal cannula at 2 liters/minute. No fever, temperature is 98.4. No fever, temperature is 98.6. Continues on Zosyn IV. No other issues reported by nursing. PHYSICAL EXAM EYES: Anicteric. Pupils equal and reactive. HENT: No oral thrush seen, moist Oral mucosa NECK: Supple, no JVD or thyromegaly. LUNGS: Good air entry. No rales, no rhonchi. Oxygen support. CARDIOVASCULAR: S1, S2 regular. No murmur heard. ABDOMEN: Soft, non tender, bowel sounds present, no organomegaly CENTRAL NERVOUS SYSTEM: Awake, alert, oriented x 3. SKIN: No rashes, no swelling. LYMPHATICS: No peripheral lymphadenopathy. MUSCULOSKELETAL: No joint swelling, erythema or tenderness. EXTREMITIES: No cyanosis or clubbing. BACK: No deformity, no pressure ulcer. GENITOURINARY: No dysuria or hematuria. Vital Sign (Last 12 Hours) 01/23/25 01/23/25 01/23/25 01/23/25 06:31 06:33 06:34 08:00 Temp 97.9 Pulse 68 68 68 75 Resp 20 20 20 16 B/P (MAP) 140/74 Pulse Ox 95 O2 Delivery N/Cannula Low lpm Nasal Cannula O2 Flow Rate 2.0 2.0 01/23/25 01/23/25 01/23/25 01/23/25 08:45 09:15 09:30 09:45 Temp 97.5 97.5 Pulse 76 73 72 72 Resp 16 16 16 16 B/P (MAP) 141/72 137/73 140/75 139/80 O2 Delivery Nasal Cannula Nasal Cannula Nasal Cannula Nasal Cannula O2 Flow Rate 2.0 2.0 2.0 2.0 01/23/25 01/23/25 01/23/25 01/23/25 10:00 10:15 10:30 10:45 Pulse 70 73 73 73 Resp 16 16 16 16 B/P (MAP) 145/80 136/79 138/77 117/75 O2 Delivery Nasal Cannula Nasal Cannula Nasal Cannula Nasal Cannula O2 Flow Rate 2.0 2.0 2.0 2.0 01/23/25 01/23/25 01/23/25 01/23/25 11:00 11:07 11:08 11:15 Pulse 68 68 68 70 Resp 16 20 20 16 B/P (MAP) 132/70 128/75 O2 Delivery Nasal Cannula N/Cannula Low lpm Nasal Cannula O2 Flow Rate 2.0 2.0 2.0 01/23/25 01/23/25 01/23/25 01/23/25 11:30 11:45 12:00 12:00 Temp 98.4 Pulse 70 71 74 70 Resp 16 16 16 16 B/P (MAP) 126/76 114/68 100/61 128/75 Pulse Ox 96 O2 Delivery Nasal Cannula Nasal Cannula Nasal Cannula Nasal Cannula O2 Flow Rate 2.0 2.0 2.0 2.0 01/23/25 01/23/25 12:15 12:30 Temp 97.5 Pulse 73 72 Resp 16 16 B/P (MAP) 112/50 118/66 O2 Delivery Nasal Cannula Nasal Cannula O2 Flow Rate 2.0 2.0 Intake & Output (last 24hrs) 01/22/25 01/22/25 01/23/25 15:00 23:00 07:00 Intake Total 1550.0 ml Balance 1550.0 ml LABS: Laboratory: Test 01/22/25 03:27 01/21/25 20:22 Range/Units White Blood Count 12.2 H 4.8-10.8 K/uL Red Blood Count 3.07 L 4.00-5.50 MIL/uL Hemoglobin 9.3 L 12.0-16.0 g/dL Hematocrit 28.7 L 36-48 % Mean Corpuscular Volume 93.5 79-99 fL Mean Corpuscular Hemoglobin 30.3 27.0-33.0 pg Mean Corpuscular Hemoglobin Concent 32.4 32.0-36.0 g/dL Red Cell Distribution Width 15.8 H 11.0-15.5 % Platelet Count 217 130-400 K/uL Mean Platelet Volume 9.6 7.5-10.5 fL Immature Granulocyte % (Auto) 2.5 H 0-1 % Neutrophils (%) (Auto) 91.9 H 40.0-77.0 % Lymphocytes (%) (Auto) 3.6 L 21.0-51.0 % Monocytes (%) (Auto) 1.4 L 3.0-13.0 % Eosinophils (%) (Auto) 0.3 0.0-8.0 % Basophils (%) (Auto) 0.3 0.0-5.0 % Neutrophils # (Auto) 11.2 H 1.8-7.7 K/uL Lymphocytes # (Auto) 0.4 L 1.0-4.8 K/uL Monocytes # (Auto) 0.2 0.1-1.0 K/uL Eosinophils # (Auto) 0.04 0.00-0.70 K/uL Basophils # (Auto) 0.04 0.00-0.20 K/uL Absolute Immature Granulocyte (auto 0.31 0-1 K/uL Nucleated Red Blood Cells 0.5 H 0.0-0.19 % Sodium Level 139 136-145 mmol/L Potassium Level 3.3 L 3.5-5.1 mmol/L Chloride Level 98 L 101-111 mmol/L Carbon Dioxide Level 29 21-32 mmol/L Blood Urea Nitrogen 34 H 7-18 mg/dL Creatinine 3.8 H 0.5-1.0 mg/dL Glomerular Filtration Rate Calc 11 >90 mL/min Random Glucose 127 H 70-105 mg/dL Total Calcium 10.1 8.5-10.1 mg/dL Magnesium Level 1.80 1.80-2.40 mg/dL Whole Blood Glucose 140 H 70-110 MG/DL ASSESSMENT: Severe anemia requiring blood transfusion, s/p EGD on 01/21/2025 with findings of large hiatal hernia and gastritis. Pneumonia. Leukocytosis. Elevated troponin, resolved. End-stage renal disease, on dialysis. Debility. PLAN: Continue Zosyn. Will monitor hemoglobin and hematocrit. Continue physical therapy. Continue Epogen as recommended by Center Mgr. Continue dialysis as recommended by Nephrology. Continue nutritional support. Continue oxygen support as needed. This case was reviewed and discussed with my supervising physician and the above assessment and plan was formulated and agreed upon. ATTESTATION BY PHYSICIAN I have seen and examined the patient. I reviewed the documentation, medical decision making, and treatment plan as noted by the mid-level provider above. I agree with the findings and plan of care. BEREKETJO SAL MD, [facility] January 23, 2025 17:10
--- NOTE | 2025-01-23 18:55 | PN ---
[facility] PROGRESS NOTE Date Patient Seen: January 23, 2025 Time of Visit: 18:55 Supervising Physician: Primary Care Physician: Belem Sykse MD Outpatient Specialists: [ ] Inpatient Consults: [ ] PROBLEM LIST: Acute hypoxemic respiratory failure. Multifocal pneumonia. Acute anemia with positive FOBT. ESRD on HD. Hypothyroidism. Hypertension. Elevated troponin suspected type 2 PA. Hiatal hernia with few Bobby erosions INTERVAL HISTORY: 01/20/2025: At the time of my evaluation, the patient was lying in bed. Staff nurse reports no acute events overnight. She remains on nasal cannula for oxygen supplementation and vital signs are within normal ranges. Laboratory data showed no new laboratory data for review today. No new imaging for today. Plan is for EGD. Nephrology on board for renal management. No other complaint. 01/21/2025: At the time of my evaluation, the patient was lying in bed. She had recently returned from undergoing EGD. The patient remains on nasal cannula for oxygen supplementation. On the monitor she is hemodynamically stable. Laboratory data today was notable for a slight increase of WBC 12.0. H and H and platelet count showed no major decrease. Chemistry panel was notable for potassium of 3.4. BUN of 18, creatinine of 2.4 and a GFR of 20. Remaining pa rameters were negative. Based on the EGD report, there was findings of hiatal hernia with few Bobby erosions, biopsies were obtained and sent for pathologic evaluation. No other complaint. 01/22/2025: At the time of my evaluation, the patient is lying in bed. She reports feeling much better today. On the monitor, she is hemodynamically stable and on nasal cannula for oxygen supplementation. Laboratory data today showed a WBC of 12.2, no profound anemia or thrombocytopenia. Chemistry panel was notable for a potassium of 3.3, renal parameters shows BUN of 34, creatinine of 3.8 and a GFR of 11. Mag of 1.80. No new chest imaging for today. No other complaint. 01/23/2025: At the time of my evaluation, the patient lying in bed. Saphenous reports no acute events overnight . The patient remains on a nasal cannula for oxygen supplementation she remains on nasal cannula for oxygen supplementation. No new labs for review today. No new imaging. No other complaint. REVIEW OF SYSTEMS: 12 point ROS reviewed with patient. Pertinent positives mentioned above. Otherwise negative. PHYSICAL EXAM: GENERAL: Alert, weak, awake oriented x 3 HEENT: EOMI, Sclera non icteric, moist mucosa NECK: Supple, no JVD, trachea midline LUNGS: Diminished breath sounds bilaterally. No wheezes HEART: Regular rate and rhythm. Normal S1 and S2, without murmurs ABD: Abdomen soft, nontender. Bowel sounds present EXT: No clubbing cyanosis or edema NEURO: Alert and oriented to person, follows commands Vital Signs (last 8hr) Date Time Temp Pulse Resp B/P (MAP) Pulse Ox O2 Delivery O2 Flow Rate FiO2 01/23/25 17:43 71 20 N/Cannula Low lpm 2.0 01/23/25 17:43 71 20 01/23/25 16:00 97.7 71 16 128/61 98 Nasal Cannula 2.0 01/23/25 12:30 97.5 72 16 118/66 Nasal Cannula 2.0 01/23/25 12:15 73 16 112/50 Nasal Cannula 2.0 01/23/25 12:00 98.4 70 16 128/75 96 Nasal Cannula 2.0 01/23/25 12:00 74 16 100/61 Nasal Cannula 2.0 01/23/25 11:45 71 16 114/68 Nasal Cannula 2.0 01/23/25 11:30 70 16 126/76 Nasal Cannula 2.0 01/23/25 11:15 70 16 128/75 Nasal Cannula 2.0 01/23/25 11:08 68 20 N/Cannula Low lpm 2.0 01/23/25 11:07 68 20 01/23/25 11:00 68 16 132/70 Nasal Cannula 2.0 LABS: Hematology Labs: Test 01/22/25 03:27 Range/Units White Blood Count 12.2 H 4.8-10.8 K/uL Red Blood Count 3.07 L 4.00-5.50 MIL/uL Hemoglobin 9.3 L 12.0-16.0 g/dL Hematocrit 28.7 L 36-48 % Mean Corpuscular Volume 93.5 79-99 fL Mean Corpuscular Hemoglobin 30.3 27.0-33.0 pg Mean Corpuscular Hemoglobin Concent 32.4 32.0-36.0 g/dL Red Cell Distribution Width 15.8 H 11.0-15.5 % Platelet Count 217 130-400 K/uL Mean Platelet Volume 9.6 7.5-10.5 fL Immature Granulocyte % (Auto) 2.5 H 0-1 % Neutrophils (%) (Auto) 91.9 H 40.0-77.0 % Lymphocytes (%) (Auto) 3.6 L 21.0-51.0 % Monocytes (%) (Auto) 1.4 L 3.0-13.0 % Eosinophils (%) (Auto) 0.3 0.0-8.0 % Basophils (%) (Auto) 0.3 0.0-5.0 % Neutrophils # (Auto) 11.2 H 1.8-7.7 K/uL Lymphocytes # (Auto) 0.4 L 1.0-4.8 K/uL Monocytes # (Auto) 0.2 0.1-1.0 K/uL Eosinophils # (Auto) 0.04 0.00-0.70 K/uL Basophils # (Auto) 0.04 0.00-0.20 K/uL Absolute Immature Granulocyte (auto 0.31 0-1 K/uL Nucleated Red Blood Cells 0.5 H 0.0-0.19 % Chemistry Labs: Test 01/22/25 03:27 01/21/25 20:22 Range/Units Sodium Level 139 136-145 mmol/L Potassium Level 3.3 L 3.5-5.1 mmol/L Chloride Level 98 L 101-111 mmol/L Carbon Dioxide Level 29 21-32 mmol/L Blood Urea Nitrogen 34 H 7-18 mg/dL Creatinine 3.8 H 0.5-1.0 mg/dL Glomerular Filtration Rate Calc 11 >90 mL/min Random Glucose 127 H 70-105 mg/dL Total Calcium 10.1 8.5-10.1 mg/dL Magnesium Level 1.80 1.80-2.40 mg/dL Whole Blood Glucose 140 H 70-110 MG/DL DIAGNOSTICS / RADIOLOGY RESULTS: [ ] PLAN Pulmonology was consulted because of hypoxemia and need for BiPAP therapy. During my visit, the patient was lying in bed. She was back to nasal cannula at 3 L/min. No profound hypoxemia events. We will continue to monitor the patient for now and we will adjust oxygenation as necessary. The patient received transfusion of PRBCs and hemoglobin has improved. Gastroenterology is on board and is pending to see the patient. We will repeat surveillance labs in the morning and follow the H&H trend. We will continue to provide general s upportive care, GI and DVT prophylaxis. Further orders per attending MD and hospital course. 01/20/2025: For now, going to continue current management for the patient. We are going to follow gastroenterology plan for possible EGD today. We will repeat surveillance labs in the morning. Renal management per the efficiency engineer. We will continue to provide general supportive care, GI and DVT prophylaxis. Further orders per attending MD and hospital course. 01/21/2025: For now, we are going to continue current management for the patient. We are going to monitor the H&H and transfuse as necessary. We will also replace electrolytes as necessary. We will repeat surveillance labs in the morning. We will follow the recommendation of the treating specialist. We will continue to provide general supportive care, GI and DVT prophylaxis. Further orders per attending MD and hospital course. 01/22/2025: For now, going to continue current management for the patient. Pulmonary jones, she remains on nasal cannula and with optimal oxygen saturation. No new chest imaging for review today. 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 We will continue to monitor the patient's for now. We will continue to provide general supportive care, GI and DVT prophylaxis. Further orders per attending MD and hospital course. 01/23/2025: For now, we are going to continue current management for the patient. We will continue oxygen supplementation as ordered. I am going to r equest a CT scan of the chest for further intrapulmonary evaluation. We will monitor the patient's progress and response to management. We will continue to provide general supportive care, GI and DVT prophylaxis. Further orders per attending MD and hospital course. NEURO: Minimize central acting medications as possible. Maintain fall precautions, adequate lighting during the day PULMONARY: Supplemental 02 as needed. Maintain aspiration precautions at all times CARDIOVASCULAR: Follow hemodynamics. Vital signs per facility protocol GI & NUTRITION: Continue with nutritional support. Continue stool softeners and laxatives as needed. KIDNEYS & ELECTROLYTES: Strict monitoring of intake, output and overall fluid balance. Avoid nephrotoxic medications to the extent possible. Medications to be dosed according to renal function. Monitor electrolytes and replace as needed ENDOCRINE: Maintain blood glucose between 100-180 at all times. Hypoglycemia protocol in place INFECTIOUS DISEASE: Trend temperature, WBC and procalcitonin level Follow cultures, deescalate antibiotics as soon as possible. Panculture if new onset fever ONCOLOGY/HEMATOLOGY/COAGULATION: Monitor for s/s of bleeding Monitor hemoglobin, coagulation studies as needed SKIN: Pressure ulcer prevention per facility protocol Specialty mattress ORTHO/REHAB: Continue PT/OT Prophylaxis: Continue GI and DVT prophylaxis Code Status: Full Resuscitation Disposition: TBD Other: Patient was seen and case discussed with neftaly VALLADARES. Plan was discussed and agreed upon. YOVANI WINCHESTER CHERRY SORTER January 23, 2025 18:55
[2025-01-24] VITALS (10 sets, daily range): BP systolic 135–141; BP diastolic 64–73; PULSE 67–89; RESP 16–18; TEMP 97.9–98.5; O2SAT 90–100
[2025-01-24 03:58] LABS: BASOPHILS # (AUTO) 0.04 K/uL (0.00-0.20); BASOPHILS % (AUTO) 0.4 % (0.0-5.0); EOSINOPHILS # (AUTO) 0.02 K/uL (0.00-0.70); EOSINOPHILS % (AUTO) 0.2 % (0.0-8.0); HEMATOCRIT 32.5 % (36-48); LYMPHOCYTES # (AUTO) 0.6 K/uL (1.0-4.8); LYMPHOCYTES % (AUTO) 5.4 % (21.0-51.0); MEAN CORPUSCULAR HEMOGLOBIN 30.6 pg (27.0-33.0); MEAN CORPUSCULAR HGB CONC 32.3 g/dL (32.0-36.0); MEAN CORPUSCULAR VOLUME 94.8 fL (79-99); MONOCYTES # (AUTO) 0.3 K/uL (0.1-1.0); MONOCYTES % (AUTO) 2.9 % (3.0-13.0); NEUTROPHILS # (AUTO) 9.2 K/uL (1.8-7.7); NEUTROPHILS % (AUTO) 86.4 % (40.0-77.0); NUCLEATED RED BLOOD CELLS 0.5 % (0.0-0.19); PLATELET COUNT (AUTO) 203 K/uL (130-400); RED BLOOD CELL COUNT(AUTO) 3.43 MIL/uL (4.00-5.50); RED CELL DISTRIBUTION WIDTH 18.3 % (11.0-15.5); WHITE BLOOD COUNT (AUTO) 10.6 K/uL (4.8-10.8)
[2025-01-24 04:05] LABS: CREATININE 3.6 mg/dL (0.5-1.0); MAGNESIUM 1.6 mg/dL (1.80-2.40); POTASSIUM 3.3 mmol/L (3.5-5.1)
--- NOTE | 2025-01-24 09:57 | PN ---
NEPHROLOGY FOLLOWUP NOTE INTERVAL HISTORY: The patient was evaluated this morning. No acute events reported as per nursing staff. Did complete a chest CT, results are pending. The patient continues with weakness but no fevers, chills, chest pain, palpitations, abdominal pain, focal weakness. PHYSICAL EXAMINATION: CURRENT VITAL SIGNS: Temperature 98.4, pulse 72, blood pressure 137/72, respiratory rate is 18, satting 95% on 2 liters nasal cannula. GENERAL: The patient is resting this morning. She is alert. She is oriented. CARDIAC: Regular rhythm and rate. CHEST: Coarse breath sounds. ABDOMEN: Soft, nontender. EXTREMITIES: No edema. LABORATORY DATA: White count is 10.6, hemoglobin is 10.5, hematocrit 32.5, platelet count is 203. Sodium is 134, potassium is 3.3, chloride 95, bicarbonate is 31, BUN is 29, creatinine is 3.6, calcium is 9.2. ASSESSMENT: * End-stage renal disease, on chronic hemodialysis. * Hypokalemia. * Acute pulmonary edema. * Symptomatic anemia. * Acute hypoxic respiratory failure. * Multifocal pneumonia. * Hypertension. * Leukocytosis. PLAN: * End-stage renal disease. The patient will continue routine dialysis every Thursday, Thursday and Thursday. Continues to tolerate treatments. Continue with fluid restriction. * Hypokalemia. Continue to adjust potassium bath to correct. May liberalize potassium in diet. * Acute pulmonary edema. Continue with ultrafiltration as tolerated with hemodialysis. Clinically, he is improving. * Symptomatic anemia. Counts continue to trend upward. Continue with Epogen with treatments. Status post EGD, revealing hiatal hernia and gastritis. * Multifocal pneumonia. Continue with IV antibiotics, renal dose. Follow up with chest CT. * Hypertension. Blood pressure is stable. * Leukocytosis, trending downward. TID: [id number] RECEIPT: [id number]
--- NOTE | 2025-01-24 12:06 | HMCIMG ---
CT CHEST W/O CONTRAST HISTORY: Interstitial lung disease COMPARISON: None TECHNIQUE: Multiple sequential axial images of the chest were obtained from the thoracic inlet through upper abdomen. Patient was not given contrast through intravenous route. FINDINGS: Tiny bilateral pleural effusions are seen. COPD changes are seen with mild interstitial fibrosis. Minimal bilateral groundglass pulmonary infiltrates are seen. There is large hiatal hernia. Post cholecystectomy changes are seen. There is no evidence of pneumothorax. There are normal size mediastinal and hilar lymph nodes. The heart is not enlarged. Degenerative changes of the thoracolumbar spine are present. There is no evidence of adrenal nodule. IMPRESSION: 1. Tiny bilateral pleural effusions. COPD with interstitial fibrosis with minimal bilateral groundglass infiltrates. Hiatal hernia. CT was performed with one or more following dose reduction techniques: automated exposure control, adjustment of the mA and kv according to patient's size, or use of a iterative reconstruction technique.
--- NOTE | 2025-01-24 14:07 | PN ---
[facility] PROGRESS NOTE Date Patient Seen: January 24, 2025 Time of Visit: 1225 Supervising Physician: Dr. Reis Primary Care Physician: Belem Sykes MD Outpatient Specialists: [ ] Inpatient Consults: BIS PROBLEM LIST: Acute hypoxemic respiratory failure. Multifocal pneumonia. Acute anemia with positive FOBT. ESRD on HD. Hypothyroidism. Hypertension. 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 Hiatal hernia with few Bobby erosions INTERVAL HISTORY: 01/20/2025: At the time of my evaluation, the patient was lying in bed. Staff nurse reports no acute events overnight. She remains on nasal cannula for oxygen supplementation and vital signs are within normal ranges. Laboratory data showed no new laboratory data for review today. No new imaging for today. Plan is for EGD. Nephrology on board for renal management. No other complaint. 01/21/2025: At the time of my evaluation, the patient was lying in bed. She had recently returned from undergoing EGD. The patient remains on nasal cannula for oxygen supplementation. On the monitor she is hemodynamically stable. Laboratory data today was notable for a slight increase of WBC 12.0. H and H and platelet count showed no major decrease. Chemistry panel was notable for potassium of 3.4. BUN of 18, creatinine of 2.4 and a GFR of 20. Remaining pa rameters were negative. Based on the EGD report, there was findings of hiatal hernia with few Bobby erosions, biopsies were obtained and sent for pathologic evaluation. No other complaint. 01/22/2025: At the time of my evaluation, the patient is lying in bed. She reports feeling much better today. On the monitor, she is hemodynamically stable and on nasal cannula for oxygen supplementation. Laboratory data today showed a WBC of 12.2, no profound anemia or thrombocytopenia. Chemistry panel was notable for a potassium of 3.3, renal parameters shows BUN of 34, creatinine of 3.8 and a GFR of 11. Mag of 1.80. No new chest imaging for today. No other complaint. 01/24 patient was seen and examined by bedside with no family present. Patient is awake alert able to answer simple questions appropriately. At time of visit patient denies any chest pain or shortness of breath. Continues with this supplemental oxygen via nasal cannula 2 L. patient's WBCs noted to be trending down today 10.6 we will continue on IV antibiotics per ID recommendations. CT chest was reviewed by supervising physician and was noted to have air trapping bronchiectasis and minimal left effusion. At this time we will change patient's Solu-Medrol to 40 mg b.i.d. and continue to monitor patient closely. REVIEW OF SYSTEMS: 12 point ROS reviewed with patient. Pertinent positives mentioned above. Otherwise negative. PHYSICAL EXAM: GENERAL: Alert, weak, awake oriented x 3 HEENT: EOMI, Sclera non icteric, moist mucosa NECK: Supple, no JVD, trachea midline LUNGS: Diminished breath sounds bilaterally. No wheezes HEART: Regular rate and rhythm. Normal S1 and S2, without murmurs ABD: Abdomen soft, nontender. Bowel sounds present EXT: No clubbing cyanosis or edema NEURO: Alert and oriented to person, follows commands Vital Signs (last 8hr) Date Time Temp Pulse Resp B/P (MAP) Pulse Ox O2 Delivery O2 Flow Rate FiO2 01/24/25 12:00 98.2 69 16 141/73 97 2.0 01/24/25 11:36 67 18 01/24/25 09:47 97 Nasal Cannula* 3 32 01/24/25 08:00 97.9 74 16 139/69 99 Nasal Cannula 2.0 01/24/25 06:43 76 18 01/24/25 06:42 76 18 N/Cannula Low lpm 2.0 28 01/24/25 06:38 76 18 LABS: Hematology Labs: Test 01/24/25 03:29 Range/Units White Blood Count 10.6 4.8-10.8 K/uL Red Blood Count 3.43 L 4.00-5.50 MIL/uL Hemoglobin 10.5 L 12.0-16.0 g/dL Hematocrit 32.5 L 36-48 % Mean Corpuscular Volume 94.8 79-99 fL Mean Corpuscular Hemoglobin 30.6 27.0-33.0 pg Mean Corpuscular Hemoglobin Concent 32.3 32.0-36.0 g/dL Red Cell Distribution Width 18.3 H 11.0-15.5 % Platelet Count 203 130-400 K/uL Mean Platelet Volume 9.4 7.5-10.5 fL Immature Granulocyte % (Auto) 4.7 H 0-1 % Neutrophils (%) (Auto) 86.4 H 40.0-77.0 % Lymphocytes (%) (Auto) 5.4 L 21.0-51.0 % Monocytes (%) (Auto) 2.9 L 3.0-13.0 % Eosinophils (%) (Auto) 0.2 0.0-8.0 % Basophils (%) (Auto) 0.4 0.0-5.0 % Neutrophils # (Auto) 9.2 H 1.8-7.7 K/uL Lymphocytes # (Auto) 0.6 L 1.0-4.8 K/uL Monocytes # (Auto) 0.3 0.1-1.0 K/uL Eosinophils # (Auto) 0.02 0.00-0.70 K/uL Basophils # (Auto) 0.04 0.00-0.20 K/uL Absolute Immature Granulocyte (auto 0.50 0-1 K/uL Nucleated Red Blood Cells 0.5 H 0.0-0.19 % Red Blood Cell Morphology See comments Chemistry Labs: Test 01/24/25 03:29 Range/Units Sodium Level 134 L 136-145 mmol/L Potassium Level 3.3 L 3.5-5.1 mmol/L Chloride Level 95 L 101-111 mmol/L Carbon Dioxide Level 31 21-32 mmol/L Blood Urea Nitrogen 29 H 7-18 mg/dL Creatinine 3.6 H 0.5-1.0 mg/dL Glomerular Filtration Rate Calc 12 >90 mL/min Random Glucose 110 H 70-105 mg/dL Total Calcium 9.2 8.5-10.1 mg/dL Magnesium Level 1.60 L 1.80-2.40 mg/dL DIAGNOSTICS / RADIOLOGY RESULTS: na PLAN Pulmonology was consulted because of hypoxemia and need for BiPAP therapy. During my visit, the patient was lying in bed. She was back to nasal cannula at 3 L/min. No profound hypoxemia events. We will continue to monitor the patient for now and we will adjust oxygenation as necessary. The patient received transfusion of PRBCs and hemoglobin has improved. Gastroenterology is on board and is pending to see the patient. We will repeat surveillance labs in the m orning and follow the H&H trend. We will continue to provide general supportive care, GI and DVT prophylaxis. Further orders per attending MD and hospital course. 01/20/2025: For now, going to continue current management for the patient. We are going to follow gastroenterology plan for possible EGD today. We will repeat surveillance labs in the morning. Renal management per the aerospace quality engineer. We will continue to provide general supportive care, GI and DVT prophylaxis. Further orders per attending MD and hospital course. 01/21/2025: For now, we are going to continue current management for the patient. We are going to monitor the H&H and transfuse as necessary. We will also replace electrolytes as necessary. We will repeat surveillance labs in the morning. We will follow the recommendation of the treating specialist. We will continue to provide general supportive care, GI and DVT prophylaxis. Further orders per attending MD and hospital course. 01/22/2025: For now, going to continue current management for the patient. Pulmonary jones, she remains on nasal cannula and with optimal oxygen saturation. No new chest imaging for review today. Patient is a senior care facility resident and family preservation caseworker is working on disposition plans. We will continue to monitor the patient's for now. We will continue to provide general supportive care, GI and DVT prophylaxis. Further orders per attending MD and hospital course. 01/24 continue with current management Continue to actually titrate FiO2 as tolerated Continue to monitor respiratory status and maintain adequate oxygenation Keep O2 sats greater than 90% Aspiration precaution Continue IV antibiotics with ID recommendations We will reduce patient's Solu-Medrol to 40 mg p.o. b.i.d. Dispo per primary team NEURO: Minimize central acting medications as possible. Maintain fall precautions, adequate lighting during the day PULMONARY: Supplemental 02 as needed. Maintain aspiration precautions at all times CARDIOVASCULAR: Follow hemodynamics. Vital signs per facility protocol GI & NUTRITION: Continue with nutritional support. Continue stool softeners and laxatives as needed. KIDNEYS & ELECTROLYTES: Strict monitoring of intake, output and overall fluid balance. Avoid nephrotoxic medications to the extent possible. Medications to be dosed according to renal function. Monitor electrolytes and replace as needed ENDOCRINE: Maintain blood glucose between 100-180 at all times. Hypoglycemia protocol in place INFECTIOUS DISEASE: Trend temperature, WBC and procalcitonin level Follow cultures, deescalate antibiotics as soon as possible. Panculture if new onset fever ONCOLOGY/HEMATOLOGY/COAGULATION: Monitor for s/s of bleeding Monitor hemoglobin, coagulation studies as needed SKIN: Pressure ulcer prevention per facility protocol Specialty mattress ORTHO/REHAB: Continue PT/OT Prophylaxis: Continue GI and DVT prophylaxis Code Status: Full Resuscitation Disposition: Per primary team Other: Patient was seen and case discussed with neftaly VALLADARES. Plan was discussed and agreed upon. Total time spent caring for patient 35 minutes MOY KAUR GRAIN SAMPLER January 24, 2025 14:07
--- NOTE | 2025-01-24 14:31 | DS ---
Discharge Summary Hospital Course This is an 84-year-old female patient with past medical history of ESRD, hypertension and hypothyroidism, who was brought to the Emergency Room with above complaints. The patient was transferred from [facility] with weakness and shortness of breath. The patient has end-stage renal disease and is on dialysis. The patient has been compliant with dialysis session. While in the ER, the patient was found with hypoxic respiratory failure and was placed on BiPAP. No documented fever. No documented diarrhea or abdominal pain. The patient found with hemoglobin of 5.2 in the Emergency Room. Initial troponin was 196 and BNP was 4590. The patient denies fever and chills. No chest pain. EKG was unremarkable. ASSESSMENT: Severe anemia requiring blood transfusion, s/p EGD on 01/21/2025 with findings of large hiatal hernia and gastritis. Pneumonia. Leukocytosis. Elevated troponin, resolved. End-stage renal disease, on dialysis. Debility. PLAN: Discharge patient to home today. Follow up with PCP in 3 to 5 days. Follow up with PCP in 1 to 2 weeks. This case was reviewed and discussed with my supervising physician and the above assessment and plan was formulated and agreed upon. ITALO PAUL January 24, 2025 14:31
--- NOTE | 2025-01-24 16:20 | NUR ---
Pt d/c before RD could assess. Addendum: 01/24/25 at [address] Amended: Links added.
[2025-01-24] MEDS ORDERED: atorVAStatin 20 MG TABLET PO SCH (21:00)
[2025-01-24] MEDS ORDERED: Solu-medROL 40MG VIAL IVP SCH (21:00)
== END 2025-01-24 15:50 | disposition home or self-care (01) | DRG 811 ==
LOC: EDH 03:42 → EDHIP 05:26 → 2DH 21:20
PROVIDERS: ADMIT Internal Medicine Infectious Disease; ATTEND Internal Medicine Infectious Disease
PROC: 5A1D70Z Performance of Urinary Filtration, Intermittent, Less than 6 Hours Per Day (ICD-10-PCS; 2025-01-19)
PROC: 30233N1 Transfusion of Nonautologous Red Blood Cells into Peripheral Vein, Percutaneous Approach (ICD-10-PCS; 2025-01-19)
PROC: 5A09357 Assistance with Respiratory Ventilation, Less than 24 Consecutive Hours, Continuous Positive Airway Pressure (ICD-10-PCS; 2025-01-19)
PROC: 5A1D70Z Performance of Urinary Filtration, Intermittent, Less than 6 Hours Per Day (ICD-10-PCS; 2025-01-20)
PROC: 0DB78ZX Excision of Stomach, Pylorus, Via Natural or Artificial Opening Endoscopic, Diagnostic (ICD-10-PCS; principal; 2025-01-21)
PROC: 5A1D70Z Performance of Urinary Filtration, Intermittent, Less than 6 Hours Per Day (ICD-10-PCS; 2025-01-23)
DX: D62 Acute posthemorrhagic anemia (principal); J18.9 Pneumonia, unspecified organism; J96.01 Acute respiratory failure with hypoxia; N18.6 End stage renal disease; I13.2 Hypertensive heart and chronic kidney disease with heart failure and with stage 5 chronic kidney disease, or end stage renal disease; K25.9 Gastric ulcer, unspecified as acute or chronic, without hemorrhage or perforation; E11.22 Type 2 diabetes mellitus with diabetic chronic kidney disease; E03.9 Hypothyroidism, unspecified; E78.00 Pure hypercholesterolemia, unspecified; I48.91 Unspecified atrial fibrillation; D72.829 Elevated white blood cell count, unspecified; F32.A Depression, unspecified; F41.1 Generalized anxiety disorder; K57.90 Diverticulosis of intestine, part unspecified, without perforation or abscess without bleeding; E87.6 Hypokalemia; I50.9 Heart failure, unspecified; G47.33 Obstructive sleep apnea (adult) (pediatric); K44.9 Diaphragmatic hernia without obstruction or gangrene; I34.0 Nonrheumatic mitral (valve) insufficiency; K29.70 Gastritis, unspecified, without bleeding; D50.9 Iron deficiency anemia, unspecified; Z91.041 Radiographic dye allergy status; Z99.2 Dependence on renal dialysis; Z82.49 Family history of ischemic heart disease and other diseases of the circulatory system; Z79.01 Long term (current) use of anticoagulants; Z90.49 Acquired absence of other specified parts of digestive tract; Z95.810 Presence of automatic (implantable) cardiac defibrillator; Z79.899 Other long term (current) drug therapy
CPT/HCPCS: 36415; 36600; 43239; 71045; 71250; 80048; 82270; 82550; 82607; 82803; 82948; 83540; 83550; 83615; 83735; 83880; 84484; 85014; 85018; 85025; 85027; 85045; 86704; 86706; 86803; 86850; 86900; 86901; 86923; 87340; 87635; 87804; 88305; 88312; 90935; 93005; 94640; 94660; 94664; 94760; 96365; 96375; 99285; G0378; J1644; J2003; J2470; J2543; J2704; J2919; J3490; J7030; P9016; Q0163; A4215; A4222; A4223; A4620; Q5106

== ENCOUNTER → 2025-04-24 | Outpatient (CLI) | payer MEDICARE ==
[~2025-04-24] VITALS: Ht 152.4 cm; Wt 47.6 kg
[~2025-04-24] MED LIST changes: +ALBU2.5V2 NEB; +ALBUHFA IH; +APIX2.5T PO; +ATOR10 PO; -GABA-529 PO; +IPRA3AMP24 NEB; +LINA145C PO; +LINA72CA PO; +MIDO10TA3 PO; +MIDO5TAB4 PO; +ONDA-243 PO; +PANT20TA18 PO; -PROM118S5 PO; +SACU1TAB PO
[2025-04-24 08:57] LABS: IMMATURE GRANULOCYTE ABSOLUTE 0.04 K/uL (0-1); NUCLEATED RED BLOOD CELLS 0.0 % (0.0-0.19); PLATELET COUNT (AUTO) 172 K/uL (130-400); RED BLOOD CELL COUNT(AUTO) 3.90 MIL/uL (4.00-5.50); RED CELL DISTRIBUTION WIDTH 18.6 % (11.0-15.5); WHITE BLOOD COUNT (AUTO) 6.3 K/uL (4.8-10.8)
[2025-04-24 08:58] VITALS: BP 156/86; PULSE 98; RESP 17; TEMP 98.4
[2025-04-24 09:10] LABS: INR 1.01 (0.85-1.15)
--- NOTE | 2025-04-24 09:20 | NUR ---
RE: LAMAR SPOKE WITH DR JOHNSON' NURSE, SHARI. INFORMED HER THAT PATIENT IS ON ELIQUIS 2.5MG BID. PER SHARI, HAVE PATIENT HOLD ELIQUIS 3 DAYS BEFORE SURGERY. Addendum: 04/24/25 at 1458 by MIRNA GIBSON RN RN SPOKE WITH DAUGHTER (REX) AND INSTRUCTED HER TO HAVE PATIENT HOLD ELIQUIS 3 DAYS BEFORE SURGERY, LAST DOSE TONIGHT. DAUGHTER VERBALIZED UNDERSTANDING.
[2025-04-24 09:24] LABS: ASPARTATE AMINOTRANSFERASE 20.0 U/L (10-37); CREATININE 6.0 mg/dL (0.5-1.0); GLOMERULAR FILTR. RATE CALC 7.0 mL/min (>90); GLUCOSE,RANDOM 121.0 mg/dL (70-105); SODIUM SERUM 139.0 mmol/L (136-145); TOTAL PROTEIN, SERUM 6.9 g/dL (6.0-8.3); UREA NITROGEN, BLOOD 47.0 mg/dL (7-18)
--- NOTE | 2025-04-24 13:44 | EKG ---
[facility] Test Date: 2025-04-24 Test Time: 08:40:32 Pat Name: RAGHU PERKINS Department: [facility] Room: Gender: F Chair Caner: [id number] : 1940 Requested By: JENNIFER RYAN Order Number: [id number] Reading MD: Luis M Larsen Measurements Intervals [place] Rate: 97 P: 18 [place]: 216 QRS: -42 QRSD: 148 T: 121 QT: 400 QTc: 510 Interpretive Statements Ventricular-paced rhythm Compared to ECG 03/10/2025 09:30:07 Atrial-sensed ventricular-paced complex(es) or rhythm no longer present Electronically Signed On 04-24-2025 14:02:34 CDT by Luis M Larsen Please click the below link to view image of tracing.
--- NOTE | 2025-04-27 14:16 | NUR ---
RE: SURGERY CANCELED INFORMED SHARI (DR RYAN'S NURSE) THAT PATIENT WAS ADMITTED YESTERDAY FOR PULMONARY EDEMA. PATIENT IN ROOM 205. SURGERY CANCELED.
== END | disposition home or self-care (01) ==
LOC: EDSTATUS 08:00 → DAH 08:05
PROVIDERS: ATTEND Student in an Organized Health Care Education/Training Program
DX: Z01.818 Encounter for other preprocedural examination (principal); N18.6 End stage renal disease
CPT/HCPCS: 80053; 85025; 85610; 85730; 86850; 86900; 86901; 36415; 93005; A6260

== ENCOUNTER 2025-06-12 16:47 | Inpatient (IN) | payer MEDICARE, MEDICAID ==
[~2025-06-12] VITALS: Ht 157.5 cm; Wt 48.3 kg
[~2025-06-12 16:47] MED LIST changes: -ALBU18HF7 IH; -ALBU2.5V2 NEB; -ATOR20TA65 PO; -IPRA3AMP24 NEB; -LINA145C PO; -MIDO5TAB4 PO
--- NOTE | 2025-06-12 17:08 | ERN ---
ED Note History of Present Illness Stated Complaint: SOB Chief Complaint: Shortness of Breath Time Seen by MD: 16:59 Dictation: PATIENT IS AN 84-YEAR-OLD FEMALE WHO CAME TO THE EMERGENCY ROOM VIA EMS FROM A LOCAL HEMODIALYSIS CENTER. SHE STATES DURING THE DIALYSIS NO SHE STARTED GETTING SHORTNESS A BREATH WITH SOME CHEST PRESSURE IT DOES NOT RADIATE AND SHE ASKED THE TECH TO CHECK HER BLOOD PRESSURE. THE TECH TOLD HER IT WAS FINE HOWEVER SHE WANTED TO BE DISCONNECTED AND COME TO THE EMERGENCY ROOM. SHE STATES SHE HAD A SIMILAR EPISODE LAST NIGHT WHILE SHE WAS AT REST. SHE STATES SHE HAS A NEW HISTORY OF A PACEMAKER THAT WAS PLACED SEVEN WEEKS AGO. CAN NOT RECALL THE PROMOTIONAL MARKETING AGENT'S., HER NEPHROLOGISTS HIS DOCTOR NIKOLAS. Allergies: Coded Allergies: iodine (Unverified Allergy, Unknown, 08/25/23) Home Meds Reported Medications Linaclotide (Linzess) 72 Mcg Capsule, 1 CAP PO DAILY 04/27/25 Sacubitril/Valsartan (Entresto 24 mg-26 mg Tablet) 24 Mg-26 Mg Tablet, 0.5 TAB PO BID for 30 Days, #60 TAB 0 Refills 04/26/25 Ondansetron (Ondansetron Odt) 4 Mg Tab.rapdis, 4 MG PO Q4HPRN PRN for NAUSEA/VOMITING, TAB 04/24/25 Iron Fum & P/FA/Vit B & C No.9 (Integra Plus Capsule) 125 Mg Iron-1 Mg Capsule, 1 EACH PO DAILY, CAP 04/24/25 Pantoprazole Sodium (Pantoprazole Sodium) 20 Mg Tablet.dr, 20 MG PO DAILY, TAB 04/24/25 Ergocalciferol (Vitamin D2) (Vitamin D2) 1,250 Mcg (60721 Unit) Capsule, 1250 MCG PO QWEEK, CAP 04/24/25 Metoprolol Tartrate (Metoprolol Tartrate) 25 Mg Tablet, 12.5 MG PO BID, TAB 04/24/25 Atorvastatin Calcium (LIPITOR) 20 Mg Tab, 20 MG PO HS, TAB 04/24/25 Midodrine HCl (Midodrine HCl) 10 Mg Tablet, 10 MG PO QMOWEFR, TAB BEFORE HEMODIALYSIS 04/24/25 Escitalopram Oxalate (Escitalopram Oxalate) 5 Mg Tablet, 5 MG PO HS, TAB 04/24/25 Levothyroxine Sodium (Levothyroxine) 75 Mcg Capsule, 75 MCG PO ACBKFST, CAP 04/24/25 Albuterol Sulfate (Ventolin Hfa/Proventil Hfa/Proair Hfa) 90 Mcg Puff, 1-2 PUFF IH Q4PRN PRN for SHORTNESS OF BREATH/WHEEZING, INHALER 04/24/25 Apixaban (Eliquis) 2.5 Mg Tablet, 2.5 MG PO BID, TAB 01/19/25 Folic Acid/Vitamin B Comp W-C (Salud-Miriam Tablet) 0.8 Mg Tablet, 1 TAB PO DAILY 12/28/24 Past Medical History Past Medical History: Diabetes-Type II, High Cholesterol, Hypertension Additional Past Medical Hx: CKD ON DIALYSIS Surgical History: Appendectomy, Hysterectomy, Other, Surgical History Other: RIGHT CHEST PERMACATH Family History: Negative Social History: Negative History: Not Applicable RN Note Reviewed/Agreed w/PFSH: Yes Review of System Dictation CONSTITUTIONAL: NEGATIVE EXCEPT FOR HPI HEAD/FACE: NEGATIVE EXCEPT FOR HPI EENT: NEGATIVE EXCEPT FOR HPI RESPIRATORY: NEGATIVE EXCEPT FOR HPI/SOB GASTROINTESTINAL/ABDOMINAL: NEGATIVE EXCEPT FOR HPI GENITOURINARY: NEGATIVE EXCEPT FOR HPI MUSCULOSKELETAL: NEGATIVE EXCEPT FOR HPI INTEGUMENTARY: NEGATIVE EXCEPT FOR HPI NEUROLOGICAL/PSYCH: NEGATIVE EXCEPT FOR HPI HEMATOLOGIC/LYMPHATIC: NEGATIVE EXCEPT FOR HPI ALL SYSTEMS NEGATIVE, EXCEPT NOTED ABOVE. 13 POINT REVIEW OF SYSTEMS ASSESSED AND ALL NEGATIVE EXCEPT FOR ABOVE. Initial Vital Sign VS Vital Signs Date Time Temp Pulse Resp B/P (MAP) Pulse Ox O2 Delivery O2 Flow Rate FiO2 06/12/25 16:57 98.2 90 20 159/78 97 Nasal Cannula 2.0 Physical Exam Dictation VITAL SIGNS REVIEWED GENERAL APPEARANCE: ALERT, ORIENTED X 3, MILD ACUTE DISTRESS, WELL DEVELOPED, NOURISHED. HEAD AND FACE: NON-TRAUMATIC. EYES: PERRL, PINK CONJUNCTIVAS, EYELID NO TRAUMA, ANTERIOR CHAMBER WITH ARCUS SENILIS. EARS: PINNAS INTACT AND NO SIGNS OF TRAUMA OR ERYTHEMA EAR CANALS CLEAR AND NO DISCHARGE TM NO ERYTHEMA NOSE: NO DISCHARGE, NO BLEEDING. OROPHARYNX: MOUTH NORMAL, TONGUE PINK, PHARYNX CLEAR,NO ERYTHEMA, TONSILS NO EXUDATES, NO ABSCESSES NOTED, MUCOUS MEMBRANE MOIST NECK: SUPPLE, NON-TENDER, NO THYROMEGALY, NO MASSES, NO JVD, NO BRUITS BREAST:DEFERRED CHEST:NO TENDERNESS, NO CREPITUS, NO PARADOXICAL MOVEMENT, NO RETRACTIONS RIGHT ANTERIOR CHEST PERMCATH. LEFT CHEST WITH PACEMAKER. LUNGS:CLEAR, WELL-VENTILATED, SYMMETRIC, NO RALES, NO WHEEZING, NO RHONCHI, NO STRIDOR, GOOD BREATH SOUNDS BILATERALLY HEART: REGULAR RATE, REGULAR RHYTHM, NO MURMUR, NO GALLOPS VASCULAR: N 1+ PERIPHERAL EDEMA, ABDOMEN: SOFT, POSITIVE BOWEL SOUNDS, NONDISTENDED, NO GUARDING, NONTENDER, NO REBOUND, NO MASSES NO HEPATOMEGALY, NO SPLENOMEGALY, NO TOTH'S SIGN, NO HERNIAS. RECTAL: DEFERRED GENITAL: DEFERRED NEUROLOGICAL: NORMAL SPEECH, MOTOR FUNCTION INTACT, SENSORY FUNCTION INTACT MUSCULOSKELETAL: NECK NONTENDER, FULL RANGE OF MOTION, BACK NONTENDER, FULL RANGE OF MOTION, EXTREMITIES: NONTENDER, FULL RANGE OF MOTION SKIN: COLOR PINK, DRY, NO TURGOR, NO RASH, NO LACERATIONS, NO ABRASIONS, NO CONTUSIONS. LYMPHATIC: DEFERRED Results (Laboratory/Radiology) Laboratory/Radiology Laboratory Tests Test 06/12/25 17:18 06/12/25 17:35 White Blood Count 6.7 K/uL (4.8-10.8) Red Blood Count 3.45 MIL/uL (4.00-5.50) L Hemoglobin 11.0 g/dL (12.0-16.0) L Hematocrit 33.8 % (36-48) L Mean Corpuscular Volume 98.0 fL (79-99) Mean Corpuscular Hemoglobin 31.9 pg (27.0-33.0) Mean Corpuscular Hemoglobin Concent 32.5 g/dL (32.0-36.0) Red Cell Distribution Width 14.2 % (11.0-15.5) Platelet Count 91 K/uL (130-400) L Mean Platelet Volume 11.0 fL (7.5-10.5) H Immature Granulocyte % (Auto) 0.4 % (0-1) Neutrophils (%) (Auto) 83.5 % (40.0-77.0) H Lymphocytes (%) (Auto) 9.4 % (21.0-51.0) L Monocytes (%) (Auto) 4.2 % (3.0-13.0) Eosinophils (%) (Auto) 2.2 % (0.0-8.0) Basophils (%) (Auto) 0.3 % (0.0-5.0) Neutrophils # (Auto) 5.6 K/uL (1.8-7.7) Lymphocytes # (Auto) 0.6 K/uL (1.0-4.8) L Monocytes # (Auto) 0.3 K/uL (0.1-1.0) Eosinophils # (Auto) 0.15 K/uL (0.00-0.70) Basophils # (Auto) 0.02 K/uL (0.00-0.20) Absolute Immature Granulocyte (auto 0.03 K/uL (0-1) Nucleated Red Blood Cells 0.0 % (0.0-0.19) White Cell Morphology Comment See comments Sodium Level 137 mmol/L (136-145) Potassium Level 4.3 mmol/L (3.5-5.1) Chloride Level 97 mmol/L (101-111) L Carbon Dioxide Level 31 mmol/L (21-32) Blood Urea Nitrogen 34 mg/dL (7-18) H Creatinine 4.0 mg/dL (0.5-1.0) H Glomerular Filtration Rate Calc 11 mL/min (>90) Random Glucose 88 mg/dL (70-105) Lactic Acid Level 0.9 mmol/L (0.8-2.5) Total Calcium 8.9 mg/dL (8.5-10.1) Magnesium Level 2.00 mg/dL (1.80-2.40) Troponin I High Sensitivity 158 ng/L (4-50) *H B-Type Natriuretic Peptide 4980 pg/mL (0-100) H SARS-CoV-2 Antigen (Rapid) PRESUMPTIVE NEGATIVE CHEST X-RAY SHOWS A PACEMAKER IN PLACE WITH VASCULAR CONGESTION Labs Reviewed?: Yes EKG Comment: 1708/EKG sinus rhythm/heart rate 84/left atrial enlargement chronic changes in anterolateral leads ED Course ED Course Orders Procedure Category Date Status Time Covid19 (Sars Antigen LAB 06/12/25 Complete Rapid) 17:05 B-Type Natriuretic LAB 06/12/25 Complete Peptide 17:05 Blood Cult STU 06/12/25 In Process 17:05 Lactic Acid LAB 06/12/25 Complete 17:05 Cbc With Differential LAB 06/12/25 Complete 17:05 Chest 1vw RAD 06/12/25 Taken 17:05 12 Lead Ekg Tracing- EKG 06/12/25 Complete Technical 17:05 Magnesium LAB 06/12/25 Complete 17:05 Troponin I High LAB 06/12/25 Complete Sensitivity 17:05 Basic Metabolic Panel LAB 06/12/25 Complete 17:05 Vital Signs Date Time Temp Pulse Resp B/P (MAP) Pulse Ox O2 Delivery O2 Flow Rate FiO2 06/12/25 16:57 98.2 90 20 159/78 97 Nasal Cannula 2.0 1840/SPOKE WITH [facility] AND REVIEWED EKG LABS CHEST X-RAY SHE AGREED TO ADMIT PATIENT. HEART Score Response (Comments) Value EKG: Repolarization changes 1 Age: > 65yrs (+2) 2 Risk Factors: 3+ risk factors (+2) 2 Initial Troponin: 1-3x Normal Limit (+1) 1 Total 6 Medical Decision Making MDM MDM: DIFFERENTIAL DIAGNOSIS: ACS/AMI/ELECTROLYTE IMBALANCE/PNEUMONIA/BRONCHITIS/FLUID OVERLOAD RATIONALE: TESTS CONSIDERED AND ORDERED SECONDARY TO SHARED DECISION MAKING INCLUDE: LABS, ECG AND RADIOLOGY PREVIOUS OUTSIDE RECORDS REVIEWED: OLD ER VISITS. RISK OF COMPLICATION AND/OR MORBIDITY OR MORTALITY OF PATIENT MANAGEMENT: NONE MEDICATIONS-PER MEDICATION RECONCILIATION NEED FOR HOSPITALIZATION: PATIENT DOES MEET CRITERIA FOR HOSPITALIZATION. PATIENT WILL NEED BE ADMITTED FOR PROBABLE FLUID OVERLOAD, CARDIOLOGY CONSULTATION/HEMODIALYSIS NEED FOR EMERGENCY MAJOR/MINOR SURGERY: NO THERE ARE NO SOCIAL CONCERNS WITH THIS PATIENT. PRESCRIPTION DRUG MANAGEMENT PRESCRIPTIONS WILL INCLUDE SYMPTOMATIC CARE PATIENT'S PRIOR EXTERNAL MEDICAL RECORDS FROM OTHER ER VISITS WERE REVIEWED BY ME INDICATED. PRIOR TESTING AND RESULTS FROM PREVIOUS VISITS WERE REVIEWED. PRIOR TESTS WERE TAKEN INTO ACCOUNT WITH MEDICAL DECISION MAKING AND RESOURCE UTILIZATION, INDEPENDENT HISTORIAN/HISTORIANS WERE USED TO OBTAIN COMPLETE MEDICAL HISTORY. I INDEPENDENTLY INTERPRETED THE TEST THAT WERE PERFORMED, RESULTS WERE REVIEWED BY ME AND CONSIDERED FINDINGS ON RADIOLOGY IF ORDERED. MEDICAL MANAGEMENT AND EXAMINATION INTERPRETATION DISCUSSIONS WERE HAD BY ME WITH OTHER QUALIFIED HEALTHCARE PROFESSIONALS INDICATED FOR THE PATIENT'S CARE. DX & DISP Disposition: Inpatient Decision to Admit Time: 18:44 Departure Impression: Primary Impression: Fluid overload Additional Impressions: Elevated troponin level not due to acute coronary syndrome, Anemia, chronic renal failure, Hypochloremia, ESRD (end stage renal disease) on dialysis, Pacemaker Condition: Stable Referrals: FELIPA KILPATRICK MD (PCP) Time of Disposition: 18:44 I have reviewed the case, and I agree with, Diagnosis and Plan JOSE G KWON NP Jun 12, 2025 17:08
--- NOTE | 2025-06-12 17:12 | NUR ---
ASSUMED CARE AT TJHIS TIME
[2025-06-12 17:27] LABS: IMMATURE GRANULOCYTE ABSOLUTE 0.03 K/uL (0-1); NUCLEATED RED BLOOD CELLS 0.0 % (0.0-0.19); PLATELET COUNT (AUTO) 91 K/uL (130-400); RED BLOOD CELL COUNT(AUTO) 3.45 MIL/uL (4.00-5.50); RED CELL DISTRIBUTION WIDTH 14.2 % (11.0-15.5); WHITE BLOOD COUNT (AUTO) 6.7 K/uL (4.8-10.8)
[2025-06-12 17:35] LABS: CREATININE 4.0 mg/dL (0.5-1.0); GLOMERULAR FILTR. RATE CALC 11.0 mL/min (>90); GLUCOSE,RANDOM 88.0 mg/dL (70-105); SODIUM SERUM 137.0 mmol/L (136-145); UREA NITROGEN, BLOOD 34.0 mg/dL (7-18)
--- NOTE | 2025-06-12 18:22 | EKG ---
[facility] Test Date: 2025-06-12 Test Time: 17:08:22 Pat Name: RAGHU PERKINS Department: [facility] Room: 431 Gender: F Principal System Software Engineer: [id number] : 1940 Requested By: JOSE G KWON Order Number: [id number] Reading MD: Bre Miramontes Measurements Intervals [place] Rate: 84 P: 26 [place]: 153 QRS: 144 QRSD: 137 T: -24 QT: 430 QTc: 508 Interpretive Statements Sinus rhythm Probable left atrial enlargement Nonspecific intraventricular conduction delay Anterolateral infarct, old Compared to ECG 04/26/2025 07:04:16 Intraventricular conduction delay now present Myocardial infarct finding now present Ventricular-paced complex(es) or rhythm no longer present Electronically Signed On 06-13-2025 16:11:30 CDT by Bre Miramontes Please click the below link to view image of tracing.
--- NOTE | 2025-06-12 18:46 | NUR ---
PT 1:1 DUE TO ADVANCED DEMENTIA AND PULLED OUT IV TUBINGS AND NEBULIZER TX
--- NOTE | 2025-06-12 18:53 | HMCIMG ---
EXAM: XR Chest, 1 View. CLINICAL HISTORY: 84-year-old female with palpitation. COMPARISON: XR Chest 04/26/25 07:26 FINDINGS: LUNGS: Trace atelectasis/infiltrate. Mild pulmonary congestion suggesting mild congestive heart failure. PLEURAL SPACES: Small bilateral pleural effusions. No pneumothorax. HEART: Moderate cardiomegaly. Left side pacemaker. BONES: No acute osseous abnormality. LINES AND TUBES: Right internal jugular dialysis catheter. IMPRESSION: 1. Mild pulmonary congestion and small bilateral pleural effusions, suggesting mild congestive heart failure. 2. Moderate cardiomegaly. 3. Left side pacemaker and right internal jugular dialysis catheter in place. 4. Changes overall similar compared to prior chest x-ray 07:26 04/26/25. /[place]
[2025-06-12 20:00] VITALS: BP 142/85; PULSE 74; RESP 14; TEMP 98
[2025-06-12] MEDS ORDERED: NITROGLYCERIN 0.4 MG SL TAB SL PRN (20:00)
--- NOTE | 2025-06-12 20:12 | HP ---
[facility] HISTORY [facility] PHYSICAL Date of Service: Jun 12, 2025 Time of Service: 20:12 PCP: Onel Roche HISTORY OF PRESENT ILLNESS: This is a an 84-year-old female with past medical history of hyperlipidemia, hypothyroidism, CHF with AICD/ PPM , AFib on Eliquis, diabetes, hypertension and end-stage renal disease on hemodialysis Thursday,who presents to the ED via ambulance for complaints of shortness of breath with some chest pressure during hemodialysis treatment.Patient reports she started having pal pitation and shortness of breath last night and symptoms went away on its own and she woke up today feeling fine and had to get up early she said for her scheduled dialysis.Patient reports she usually get dialyzed for 3.5 hours but today she was only told that she missed 1 more hour because it was stopped because she was having palpitation and shortness of breath during the treatment and was transferred here in the ER.Patient reports she was recently admitted in this facility 7 weeks ago for a PPM battery exchanged and she had similar symptoms from previous admission so she decided to come and be evaluated.On examination,patient is awake,alert and coherent.Patient denies fever,chest pain,palpitation and shortness of breath,edema,nausea and vomiting.Patient r eports she never had chest pain only palpitation she said.Patient also mentioned she used to have CPAP many years ago but since it was recalled she never get a new one she said. Latest vital signs temperature 98.1, heart rate 79, blood pressure 144/78 saturation 99% on 2 L. labs: Hemoglobin 11, hematocrit 33, platelet count 91. Chloride 97, CO2 31, BUN 34, creatinine 4, GFR 11 BNP 4980, troponin 158. SARS COVID negative. EKG result revealed sinus rhythm heart rate 84 with left atrial enlargement chronic changes in anterolateral leads. Chest x-ray result revealed mild pulmonary congestion and small bilateral pleural effusions suggesting mild congestive heart failure. Moderate cardiomegaly. Left side pacemaker and right internal jugular dialysis catheter in place changes overall similar compared to prior chest x-ray. We will admit patient for further medical management. REVIEW OF SYSTEMS CONSTITUTIONAL: Denies fevers, chills, or night sweats. No unintentional weight loss reported. NEUROLOGICAL: Denies headache, amaurosis fugax, motor weakness, sensory deficit , vertigo/spinning sensation, gait abnormalities, or tremors. ENT: No hearing loss, otalgia, otorrhea, rhinitis, rhinorrhea, hoarseness, or sore throat. CARDIOVASCULAR: Palpitation Denies any exertional angina, dyspnea on exertion, orthopnea, paroxysmal nocturnal dyspnea,life-threatening arrhythmias, claudication. PULMONARY: Shortness of breaths Denies cough, phlegm/sputum, hemoptysis, pleuritic chest pain. SLEEP: Denies morning headaches, daytime somnolence or napping. Denies difficulty falling asleep, staying asleep, waking from sleep. Denies knowledge of snoring. GASTROINTESTINAL: Denies any type of dysphagia to either liquids or solids. Denies nausea, vomiting, pyrosis, early satiety, abdominal pain, diarrhea, constipation, or changes in stool consistency or caliber. Denies coffee-ground emesis, hematemesis, hematochezia, or melanotic stools. GENITOURINARY: Denies frequency, urgency, nocturia, hematuria or incontinence (Storage/Irritative symptoms.) Low urinary stream, straining to void, urinary intermittency or hesitancy, splitting of the voiding stream, terminal dribbling. ENDOCRINOLOGIC: Denies polyuria, polydipsia, polyphagia or heat/cold intolerances. HEMATOLOGIC: Denies thrombophilia/previous clots, or coagulopathy/bleeding disorders. ONCOLOGIC: Denies personal history of malignancy. DERMATOLOGIC: Denies rashes or pruritus. PSYCHIATRIC: Denies any suicidal or homicidal ideation. Denies hallucinations. PAST MEDICAL HISTORY: [ hyperlipidemia, hypothyroidism, CHF with AICD/ PPM , AFib on Eliquis, diabetes, hypertension and end-stage renal disease on hemodialysis Thursday, ] PAST SURGICAL HISTORY: [ Left Ppm, right chest HD cath access], cholecystectomy, hysterectomy and C- section x1 PAST SOCIAL HISTORY: [ Patient lives with daughter. Patient denies alcohol tobacco and recreational drug use ] FAMILY HISTORY: [ Diabetes, cardiovascular disease, cancer and hypertension] Coded Allergies: iodine (Unverified Allergy, Unknown, 08/25/23) PHYSICAL EXAM GENERAL APPEARANCE: The patient is awake, alert, and oriented, in no acute cardiopulmonary distress. NEUROLOGICAL: Cranial nerves II-XII grossly intact. Motor is 5/5 in bilateral upper and lower extremities proximal to distal. No sensory deficits. HEENT: Face is symmetric. Pupils are equal and reactive. Extraocular movements are intact. NECK: Supple. No JVD. No thyromegaly. No submental, submandibular, pre- /postauricular, occipital or supraclavicular lymphadenopathy. CHEST: Normal chest expansion. No Telemetry. LUNGS: Absence of any rales, rhonchi or any wheezing. CARDIOVASCULAR: Regular. S1 and S2 normal. No appreciable rubs, murmurs or gallops. ABDOMEN: Soft, nontender, and nondistended. There is no rebound, voluntary guarding, or rigidity. : Deferred. No Jaquez. EXTREMITIES: Non-edematous and not cyanotic. No clubbing. Good capillary refill. SKIN: No skin breakdown. Vital Sign (Last 24 Hours) 06/12/25 18:00 Temp 98.1 Pulse 79 Resp 18 B/P (MAP) 144/78 Pulse Ox 99 O2 Delivery Nasal Cannula* O2 Flow Rate 2 FiO2 28 LABS: Laboratory: Test 06/12/25 17:35 06/12/25 17:18 Range/Units SARS-CoV-2 Antigen (Rapid) PRESUMPTIVE NEGATIVE NEGATIVE White Blood Count 6.7 4.8-10.8 K/uL Red Blood Count 3.45 L 4.00-5.50 MIL/uL Hemoglobin 11.0 L 12.0-16.0 g/dL Hematocrit 33.8 L 36-48 % Mean Corpuscular Volume 98.0 79-99 fL Mean Corpuscular Hemoglobin 31.9 27.0-33.0 pg Mean Corpuscular Hemoglobin Concent 32.5 32.0-36.0 g/dL Red Cell Distribution Width 14.2 11.0-15.5 % Platelet Count 91 L 130-400 K/uL Mean Platelet Volume 11.0 H 7.5-10.5 fL Immature Granulocyte % (Auto) 0.4 0-1 % Neutrophils (%) (Auto) 83.5 H 40.0-77.0 % Lymphocytes (%) (Auto) 9.4 L 21.0-51.0 % Monocytes (%) (Auto) 4.2 3.0-13.0 % Eosinophils (%) (Auto) 2.2 0.0-8.0 % Basophils (%) (Auto) 0.3 0.0-5.0 % Neutrophils # (Auto) 5.6 1.8-7.7 K/uL Lymphocytes # (Auto) 0.6 L 1.0-4.8 K/uL Monocytes # (Auto) 0.3 0.1-1.0 K/uL Eosinophils # (Auto) 0.15 0.00-0.70 K/uL Basophils # (Auto) 0.02 0.00-0.20 K/uL Absolute Immature Granulocyte (auto 0.03 0-1 K/uL Nucleated Red Blood Cells 0.0 0.0-0.19 % White Cell Morphology Comment See comments Sodium Level 137 136-145 mmol/L Potassium Level 4.3 3.5-5.1 mmol/L Chloride Level 97 L 101-111 mmol/L Carbon Dioxide Level 31 21-32 mmol/L Blood Urea Nitrogen 34 H 7-18 mg/dL Creatinine 4.0 H 0.5-1.0 mg/dL Glomerular Filtration Rate Calc 11 >90 mL/min Random Glucose 88 70-105 mg/dL Lactic Acid Level 0.9 0.8-2.5 mmol/L Total Calcium 8.9 8.5-10.1 mg/dL Magnesium Level 2.00 1.80-2.40 mg/dL Troponin I High Sensitivity 158 *H 4-50 ng/L B-Type Natriuretic Peptide 4980 H 0-100 pg/mL Current Medications Medications (Trade) Dose Ordered Sig/Mg Route PRN Reason Start Time Stop Time Status Last Admin Dose Admin Acetaminophen (TYLenol 325MG TAB) 650 mg Q4H PRN PO MILD PAIN (1-3) 06/12/25 20:00 07/12/25 19:59 Acetaminophen (TYLenol 325MG TAB) 650 mg Q6H PRN PO TEMPERATURE GREATER THAN 101.5 06/12/25 20:00 07/12/25 19:59 Atorvastatin Calcium (LIPItor 20MG) 20 mg HS PO 06/12/25 21:00 07/12/25 20:59 Famotidine (Pepcid 20mg Tab) 20 mg Q48H PO 06/12/25 20:00 07/12/25 19:59 Furosemide (LASix 20MG VIAL) 20 mg DAILY IV 06/13/25 09:00 07/13/25 08:59 Guaifenesin/ Dextromethorphan (RobiTUSSin DM 200/20MG 10ML) 10 ml Q4H PRN PO COUGH 06/12/25 20:00 07/12/25 19:59 Levothyroxine Sodium (SYNTHroid 75MCG TAB) 75 mcg SYN PO 06/13/25 06:30 07/13/25 06:29 Metoprolol Tartrate (loprESSOR) 12.5 mg BID PO 06/12/25 21:00 07/12/25 20:59 Miscellaneous Medication (Levothyroxine Sodium (Levothyroxine)) 75 mcg ACBKFST PO 06/13/25 07:30 06/12/25 20:11 DC Nitroglycerin (Nitrostat) 0.4 mg PROTOCOL PRN SL CHEST PAIN 06/12/25 20:00 07/12/25 19:59 Ondansetron HCl (zoFRAN 4MG INJ) 4 mg Q6H PRN IV NAUSEA/VOMITING 06/12/25 20:00 07/12/25 19:59 Sacubitril/ Valsartan (Entresto 24 Mg-26 Mg Tablet) 0.5 each BID PO 06/12/25 21:00 07/12/25 20:59 DIAGNOSTICS / RADIOLOGY: [ ] ASSESSMENT: Acute CHF exacerbation POA Chronic elevated troponin most likely due to demand ischemia POA Acute thrombocytopenia POA Chronic anemia due to CKD POA End-stage renal disease on hemodialysis POA Cardiac pacemaker /AICD status POA Hypothyroidism POA Atrial fibrillation POA Hyperlipidemia POA Diabetes POA PLAN: We will admit patient in medical telemetry We will start on renal dialysis diet We will start on famotidine 20 mg p.o. q.48h We will start on Lasix 20 mg IV daily We will start on insulin sliding scale AC & HS with hypoglycemia protocol We will add prn medication for fever,pain,cough , nausea and vomiting Some Home meds reconciled We will request to have device interrogated We will seek Cardiology consultation We will seek Nephrology consultation We will request labs in am Further orders to follow depending on above results Case discussed with attending physician and came up with above treatment and pl an of care. ADVANCED CARE PLANNING 1. Which of the following were discussed? Hospice Care - No Therapeutic options - Yes Advance Directives - No Other discussions - 2. Discussed with who? Patient 3. Voluntary nature of this service was explained to the patient? Yes 4. Amount of time spent - ___23 min____ 5. Reviewed by Physician? (if this service was performed by NPP) Yes Patient seen and examined by me. Agree with note by STAGE RIGGER SEE ADDITIONAL ORDERS PER CHART DISCUSSED WITH NURSING STAFF SMITH VANN ROTARY FILTER OPERATOR Jun 12, 2025 20:12
[2025-06-12] MEDS: SACUBITRIL/VALSARTAN 1 EACH TABLET PO SCH (21:59)
[2025-06-12] MEDS: FAMOTIDINE 20MG TAB PO SCH (21:59)
[2025-06-12 23:56] VITALS: BP 134/78; PULSE 75; RESP 22; TEMP 98.3
[2025-06-13] VITALS (8 sets, daily range): BP systolic 120–146; BP diastolic 63–82; PULSE 74–88; RESP 17–22; TEMP 97.3–98.1; O2SAT 96
--- NOTE | 2025-06-13 00:57 | NUR ---
pacemaker patient does not have her pacemaker card with her. we called her daughter beverly, and she will bring it in the morning.
--- NOTE | 2025-06-13 00:58 | NUR ---
home meds we called patient's daughter, beverly and she will bring them in the morning.
[2025-06-13 05:38] LABS: IMMATURE GRANULOCYTE ABSOLUTE 0.02 K/uL (0-1); NUCLEATED RED BLOOD CELLS 0.0 % (0.0-0.19); PLATELET COUNT (AUTO) 90 K/uL (130-400); RED BLOOD CELL COUNT(AUTO) 3.50 MIL/uL (4.00-5.50); RED CELL DISTRIBUTION WIDTH 13.9 % (11.0-15.5); WHITE BLOOD COUNT (AUTO) 5.2 K/uL (4.8-10.8)
[2025-06-13 06:04] LABS: ASPARTATE AMINOTRANSFERASE 26.0 U/L (10-37); CREATININE 4.7 mg/dL (0.5-1.0); GLOMERULAR FILTR. RATE CALC 9.0 mL/min (>90); GLUCOSE,RANDOM 65.0 mg/dL (70-105); SODIUM SERUM 137.0 mmol/L (136-145); TOTAL PROTEIN, SERUM 6.6 g/dL (6.0-8.3); UREA NITROGEN, BLOOD 38.0 mg/dL (7-18)
--- NOTE | 2025-06-13 06:42 | CONS ---
NEPHROLOGY CONSULTATION NOTE Date of Service: Jun 13, 2025 Reason for Consultation: [ ESRD on Hemodialysis MW ] Requesting Physician: [ Dr. Hoffmann ] HISTORY OF PRESENT ILLNESS: [ Patient is an 84-year-old female with a history of hypertension, hypothyroidism, end-stage renal disease on hemodialysis, recurrent pleural effusions, pulmonary edema, CHF and anemia. Patient presented to the emergency room after experiencing shortness of breath and chest pain during her hemodialysis treatment today she did not complete the last hour for treatment. Initial evaluation in the emergency department revealed elevated BNP at 4980 and elevated troponin at 158 and presumed noncardiac etiology. Chest x-ray with Pulmonary congestion/small bilateral pleural effusions, pulmonary congestion, it also shows right IJ tunneled catheter in place and left-sided pacemaker. This patient is known to our service nephrology was consulted for management of hemodialysis. This morning patient was evaluated at bedside with nursing she did she reports feeling better and she will resume with routine hemodialysis tomorrow ] REVIEW OF SYSTEMS CONSTITUTIONAL: Denies fever, chills, or fatigue. HEAD/FACE: No signs of trauma. EENT: Denies eye pain, blurred vision, double vision, or light sensitivity. RESPIRATORY: Denies shortness of breath, cough, wheezing CARDIOVASCULAR: Denies chest pain, palpitation, syncope GASTROINTESTINAL/ABDOMINAL: Denies abdominal pain, constipation, diarrhea, nausea or vomiting GENITOURINARY: Denies dysuria or hematuria. MUSCULOSKELETAL: Denies joint pain, tenderness, or trauma. INTEGUMENTARY: Denies rash or itchiness NEUROLOGICAL/PSYCH: Denies anxiety, depression, heat or cold intolerance. PAST MEDICAL HISTORY: [ Hypertension, hyperlipidemia, sleep apnea, ESRD on dialysis, hypothyroidism, anemia, pneumonia, pulmonary edema, recurrent effusions, anxiety, depression, mitral regurgitation, AFib on anticoagulation, and heart failure. ] PAST SURGICAL HISTORY: [ Permanent pacemaker placement, av fistula placement, cholecystectomy, C- section, renal biopsy ] PAST SOCIAL HISTORY: [ . Denies drugs, alcohol and smoking. ] FAMILY HISTORY: [ Noncontributory. ] Coded Allergies: iodine (Unverified Allergy, Unknown, 08/25/23) PHYSICAL EXAM EYES: Anicteric. Pupils equal and reactive. HENT: No oral thrush seen, moist Oral mucosa NECK: Right IJ LUNGS: Good air movement, coarse sounds bilateral bases. CARDIOVASCULAR: Regular rate and rhythm. ABDOMEN: Soft, non tender, bowel sounds present, no organomegaly CENTRAL NERVOUS SYSTEM: Awake, alert, oriented x 3. No focal deficits. EXTREMITIES: No edema Vital Sign (Last 24 Hours) 06/13/25 03:45 Temp 97.9 Pulse 76 Resp 20 B/P (MAP) 133/63 Pulse Ox 96 O2 Delivery Nasal Cannula O2 Flow Rate 4.0 FiO2 32 LABS: Laboratory: Test 06/13/25 05:24 06/13/25 05:15 06/12/25 17:35 06/12/25 17:18 Range/Units White Blood Count 5.2 4.8-10.8 K/uL Red Blood Count 3.50 L 4.00-5.50 MIL/uL Hemoglobin 11.1 L 12.0-16.0 g/dL Hematocrit 34.7 L 36-48 % Mean Corpuscular Volume 99.1 H 79-99 fL Mean Corpuscular Hemoglobin 31.7 27.0-33.0 pg Mean Corpuscular Hemoglobin Concent 32.0 32.0-36.0 g/dL Red Cell Distribution Width 13.9 11.0-15.5 % Platelet Count 90 L 130-400 K/uL Mean Platelet Volume 10.9 H 7.5-10.5 fL Immature Granulocyte % (Auto) 0.4 0-1 % Neutrophils (%) (Auto) 75.9 40.0-77.0 % Lymphocytes (%) (Auto) 14.8 L 21.0-51.0 % Monocytes (%) (Auto) 5.0 3.0-13.0 % Eosinophils (%) (Auto) 3.3 0.0-8.0 % Basophils (%) (Auto) 0.6 0.0-5.0 % Neutrophils # (Auto) 4.0 1.8-7.7 K/uL Lymphocytes # (Auto) 0.8 L 1.0-4.8 K/uL Monocytes # (Auto) 0.3 0.1-1.0 K/uL Eosinophils # (Auto) 0.17 0.00-0.70 K/uL Basophils # (Auto) 0.03 0.00-0.20 K/uL Absolute Immature Granulocyte (auto 0.02 0-1 K/uL Nucleated Red Blood Cells 0.0 0.0-0.19 % Sodium Level 137 136-145 mmol/L Potassium Level 4.9 3.5-5.1 mmol/L Chloride Level 97 L 101-111 mmol/L Carbon Dioxide Level 29 21-32 mmol/L Blood Urea Nitrogen 38 H 7-18 mg/dL Creatinine 4.7 H 0.5-1.0 mg/dL Glomerular Filtration Rate Calc 9 >90 mL/min Random Glucose 65 L 70-105 mg/dL Total Calcium 9.1 8.5-10.1 mg/dL Magnesium Level 2.10 1.80-2.40 mg/dL Total Bilirubin 0.8 0.2-1.0 mg/dL Aspartate Amino Transf (AST/SGOT) 26 10-37 U/L Alanine Aminotransferase (ALT/SGPT) 27 12-78 U/L Alkaline Phosphatase 74 50-136 U/L Troponin I High Sensitivity 183 *H 4-50 ng/L B-Type Natriuretic Peptide > 5000 H 0-100 pg/mL Total Protein 6.6 6.0-8.3 g/dL Albumin 3.1 L 3.5-5.0 g/dL Whole Blood Glucose 65 L 70-110 MG/DL SARS-CoV-2 Antigen (Rapid) PRESUMPTIVE NEGATIVE NEGATIVE White Cell Morphology Comment See comments Lactic Acid Level 0.9 0.8-2.5 mmol/L DIAGNOSTICS / RADIOLOGY: [ ] ASSESSMENT: [ ESRD on hemodialysis Pulmonary congestion/small bilateral pleural effusions Acute on chronic CHF Elevated BNP greater than 5000 Hypertroponinemia 158 Anemia of chronic disease Hyperphosphatemia Hypoalbuminemia ] PLAN: [ 1. ESRD on hemodialysis- resume routine hemodialysis MWF, 300 blood flow rate is 600 dialysate flow rate, 1L UF as tolerated, 2K and 2.5 Ca bath pending lab redraw, fluid restriction of 1.2 L, renal dialysis diet. 2. Acute on chronic CHF/pulmonary congestion/bilateral effusions- proceed with UF; cardiology following. Patient uses midodrine for bp support. 3. Anemia- keep hemoglobin above 10. 4. Hyperphosphatemia- trend labs. 5. Hypoalbuminemia-trend labs. ] Visit was rendered and documented by Lai Segura, MSN, REFINERY OPERATOR [employer], BACK TENDER-C and completed in collaboration with supervising physician MD FAMILIA Hensley JOSEPH P NP Jun 13, 2025 06:42
--- NOTE | 2025-06-13 07:09 | NUR ---
cardiology called dr. adriano hawley about elevated troponins and consult. she is aware.
[2025-06-13] MEDS ORDERED: NON-FORMULARY MEDICATION 1 EACH (Levothyroxine Sodium (Levothyroxine) 75 MCG) PO SCH (07:30)
--- NOTE | 2025-06-13 09:26 | NUR ---
DCP:HOME Pt currently lives with his her daughter Catherine. Pt does use a walker and a wheelchair to ambulate. Pt does have a provider that goes to the home 4 hrs a day to assist with all ADLs, home management, and meals. Pt does go to dialysis [facility] at [facility]. PCP is Dr Melchor Sykes and uses [facility] for any RX needs. At [place] pt would want to go home and family can assist with transportation. Addendum: 06/13/25 at 0940 by SNEHA HERRMANN SS Amended: Links added.
--- NOTE | 2025-06-13 10:13 | CONS ---
[facility] CARDIOLOGY CONSULTATION REPORT Cardiology consultation note dictated for Ricky Miramontes MD Primary card cutter helper: Netta Holden MD Date Patient Seen: Jun 13, 2025 Requesting Physician: DILLON Schwartz Reason for Consultation: CHF History of Present Illness: This is an 84-year-old female with a past medical history of complete heart block status post dual-chamber pacemaker inserted on 01/13/2019 with a Medronic biventricular ICD upgrade on 05/03/2025, paroxysmal atrial fibrillation on chronic anticoagulation with Eliquis, hypertension, hypothyroidism, interstitial fibrosis, ESRD on HD MWF, midodrine therapy before for hemodialysis MWF, normal Lexiscan stress test on 08/26/2023, normal coronary arteries by [facility] on 05/02/2025, nonischemic cardiomyopathy, and 2D echocardiogram on 04/29/2025 with an LVEF of 20-25%, global hypokinesis, stage III diastolic dysfunction, moderately dilated left atrium, [id number] mitral regurgitation, and a trace pericardial effusion with fibrin or clot noted who presented to the ED with complaints of shortness of breath and palpitations. Cardiology has been consulted for CHF. While in hemodialysis, the patient began experience palpitations with shortness of breath for approximately 15 minutes. Dialysis was stopped 1 hour early in the patient was sent to the ER. BNP on admission was greater than 5000. Chest x-ray demonstrated small bilateral pleural effusions with pulmonary vascular congestion. Troponin of 158, 183, and 167. EKG on admission demonstrated normal sinus rhythm with a heart rate of 84bpm, with IVCD. The patient denied chest pain, chest pressure, dizziness, nausea, vomiting, or syncope. She has not had a recurrence of palpitations. She states she follows a fluid restriction of 3 water bottles per day that are approximately 12-16 oz in size, a low-sodium diet, and has not skipped hemodialysis. Past Medical History: As per HPI and summarized below Device interrogation on 05/24/2025 demonstrated normal device function Past Surgical History: Pacemaker placement. section. Cholecystectomy. Family History: Noncontributory Social History: The patient lives with family. Habits: The patient denies alcohol, tobacco, or illicit drug use. Home Meds: Medications pending reconciliation Current Meds: Medications Dose Ordered Sig/Mg Start Time Stop Time Status Last Admin Acetaminophen 650 mg Q6H PRN 06/12/25 20:00 07/12/25 19:59 Acetaminophen 650 mg Q4H PRN 06/12/25 20:00 07/12/25 19:59 Ondansetron HCl 4 mg Q6H PRN 06/12/25 20:00 07/12/25 19:59 Nitroglycerin 0.4 mg PROTOCOL PRN 06/12/25 20:00 07/12/25 19:59 Guaifenesin/ Dextromethorphan 10 ml Q4H PRN 06/12/25 20:00 07/12/25 19:59 Famotidine 20 mg Q48H 06/12/25 20:00 07/12/25 19:59 06/12/25 21:59 Atorvastatin Calcium 20 mg HS 06/12/25 21:00 07/12/25 20:59 06/12/25 21:59 Metoprolol Tartrate 12.5 mg BID 06/12/25 21:00 07/12/25 20:59 06/13/25 09:11 Sacubitril/ Valsartan 0.5 each BID 06/12/25 21:00 07/12/25 20:59 06/13/25 09:11 Furosemide 20 mg DAILY 06/13/25 09:00 07/13/25 08:59 06/13/25 09:11 Levothyroxine Sodium 75 mcg SYN 06/13/25 06:30 07/13/25 06:29 06/13/25 06:24 Review of Systems: CONST: No fever, fatigue, or weight changes. EYES: No recent vision problems. ENT: No congestion, ear pain, or sore throat. C/V: No chest pain, palpitations, or edema. RESP: No cough, congestion, wheezing or shortness of breath. GI: No abdominal pain, nausea, vomiting, constipation, or diarrhea. : No incontinence or dysuria. SKIN: No rash. NEURO: No headache, focal numbness or weakness, dizziness, or seizures. PSYCH: No depression or anxiety. HEME: No abnormal bruising or bleeding. LYMPH: No swollen glands. Physical Examination: GENERAL: No acute distress. HEAD: Normal with no signs of head trauma. EYES: Conjunctiva and sclera normal. ENT: Hearing grossly intact, normal oropharynx. NECK: Supple without JVD. Normal carotid upstrokes without bruits. LUNGS:Rales bilaterally. HEART: Normal rate and rhythm. Normal S1 and S2 without murmurs, gallop or rub. VASC: Peripheral pulses +2 bilaterally. ABD: Bowel sounds normal, soft, nontender, no masses, no organomegaly. No audible bruits. : Not examined LYMPH: No lymphadenopathy noted. EXT: No clubbing, cyanosis or edema. SKIN: No rashes or lesions noted. Rt IJ permacath NEURO: Awake, alert, and oriented x3. No focal sensory or strength deficits noted. Vital Signs (last 8hr) Date Time Temp Pulse Resp B/P (MAP) Pulse Ox O2 Delivery O2 Flow Rate FiO2 06/13/25 03:45 97.9 76 20 133/63 96 Nasal Cannula 4.0 32 Laboratory: Hematology Labs: Test 06/13/25 05:24 06/12/25 17:18 Range/Units White Blood Count 5.2 4.8-10.8 K/uL Red Blood Count 3.50 L 4.00-5.50 MIL/uL Hemoglobin 11.1 L 12.0-16.0 g/dL Hematocrit 34.7 L 36-48 % Mean Corpuscular Volume 99.1 H 79-99 fL Mean Corpuscular Hemoglobin 31.7 27.0-33.0 pg Mean Corpuscular Hemoglobin Concent 32.0 32.0-36.0 g/dL Red Cell Distribution Width 13.9 11.0-15.5 % Platelet Count 90 L 130-400 K/uL Mean Platelet Volume 10.9 H 7.5-10.5 fL Immature Granulocyte % (Auto) 0.4 0-1 % Neutrophils (%) (Auto) 75.9 40.0-77.0 % Lymphocytes (%) (Auto) 14.8 L 21.0-51.0 % Monocytes (%) (Auto) 5.0 3.0-13.0 % Eosinophils (%) (Auto) 3.3 0.0-8.0 % Basophils (%) (Auto) 0.6 0.0-5.0 % Neutrophils # (Auto) 4.0 1.8-7.7 K/uL Lymphocytes # (Auto) 0.8 L 1.0-4.8 K/uL Monocytes # (Auto) 0.3 0.1-1.0 K/uL Eosinophils # (Auto) 0.17 0.00-0.70 K/uL Basophils # (Auto) 0.03 0.00-0.20 K/uL Absolute Immature Granulocyte (auto 0.02 0-1 K/uL Nucleated Red Blood Cells 0.0 0.0-0.19 % White Cell Morphology Comment See comments Chemistry Labs: Test 06/13/25 05:24 06/13/25 05:15 06/12/25 17:18 Range/Units Sodium Level 137 136-145 mmol/L Potassium Level 4.9 3.5-5.1 mmol/L Chloride Level 97 L 101-111 mmol/L Carbon Dioxide Level 29 21-32 mmol/L Blood Urea Nitrogen 38 H 7-18 mg/dL Creatinine 4.7 H 0.5-1.0 mg/dL Glomerular Filtration Rate Calc 9 >90 mL/min Random Glucose 65 L 70-105 mg/dL Total Calcium 9.1 8.5-10.1 mg/dL Magnesium Level 2.10 1.80-2.40 mg/dL Total Bilirubin 0.8 0.2-1.0 mg/dL Aspartate Amino Transf (AST/SGOT) 26 10-37 U/L Alanine Aminotransferase (ALT/SGPT) 27 12-78 U/L Alkaline Phosphatase 74 50-136 U/L Troponin I High Sensitivity 183 *H 4-50 ng/L B-Type Natriuretic Peptide > 5000 H 0-100 pg/mL Total Protein 6.6 6.0-8.3 g/dL Albumin 3.1 L 3.5-5.0 g/dL Whole Blood Glucose 65 L 70-110 MG/DL Lactic Acid Level 0.9 0.8-2.5 mmol/L Diagnostics / Radiology: Impression and Plan: Acute on chronic combined systolic and diastolic heart failure Palpitations Troponin elevation in the setting of acute CHF CHB s/p PPM inserted on 01/13/2019 with a Med[employer] biventricular ICD upgrade on 05/03/2025 Normal coronary arteries by [facility] on 05/02/2025 Nonischemic cardiomyopathy (LVEF of 20 25% with stage III diastolic dysfunction via 2D echo on 04/29/2025) Normal Lexiscan stress test on 08/26/2023 Paroxysmal atrial fibrillation on chronic anticoagulation with Eliquis Hypertension Hypothyroidism Interstitial fibrosis ESRD on HD MWF Midodrine therapy before for hemodialysis MWF Acute on chronic combined systolic and diastolic heart failure BNP > 5000 Chest x-ray demonstrated small bilateral pleural effusions with pulmonary vascular congestion Elevated Troponin of 158 and 183, and 167 -Continue GDMT: Entresto 24-26 mg, 0.5 tablets b.i.d. and transition from Metoprolol tartrate 12.5 mg b.i.d. to Toprol 25mg daily -Recommend fluid removal via hemodialysis. Primary team has ordered Lasix 20mg IV daily. Palpitations The patient endorsed 15 minutes of palpitations accompanied by shortness of breath in hemodialysis Device interrogation on 05/24/2025 demonstrated normal device function -Pending device interrogation Paroxysmal atrial fibrillation Telemetry currently demonstrating V pacing hr 70's -Resume Eliquis 2.5mg bid and Toprol 25mg daily LETICIA ROLON Jun 13, 2025 10:13 RICKY MIRAMONTES MD Jun 13, 2025 12:24
[2025-06-13] MEDS ORDERED: GABA-529 PO (12:13)
--- NOTE | 2025-06-13 15:57 | PN ---
[facility] PROGRESS NOTE Date of Service: Jun 13, 2025 Time of Service: 15:02 HISTORY OF PRESENT ILLNESS: This is a an 84-year-old female with past medical history of hyperlipidemia, hypothyroidism, CHF with AICD/ PPM , AFib on Eliquis, diabetes, hypertension and end-stage renal disease on hemodialysis Thursday,who presents to the ED via ambulance for complaints of shortness of breath with some chest pressure during hemodialysis treatment.Patient reports she started having palpitation and shortness of breath last night and symptoms went away on its own and she woke up today feeling fine and had to get up early she said for her scheduled dialysis.Patient reports she usually get dialyzed for 3.5 hours but today she was only told that she missed 1 more hour because it was stopped because she was having palpitation and shortness of breath during the treatment and was transferred here in the ER.Patient reports she was recently admitted in this facility 7 weeks ago for a PPM battery exchanged and she had similar symptoms from previous admission so she decided to come and be evaluated.On examination,patient is awake,alert and coherent.Patient denies fever,chest pain,palpitation and shortness of breath,edema,nausea and vomiting.Patient reports she never had chest pain only palpitation she said.Patient also mentioned she used to have CPAP many years ago but since it was recalled she never get a new one she said. Latest vital signs temperature 98.1, heart rate 79, blood pressure 144/78 saturation 99% on 2 L. labs: Hemoglobin 11, hematocrit 33, platelet count 91. Chloride 97, CO2 31, BUN 34, creatinine 4, GFR 11 BNP 4980, troponin 158. SARS COVID negative. EKG result revealed sinus rhythm heart rate 84 with left atrial enlargement chronic changes in anterolateral leads. Chest x-ray result revealed mild pulmonary congestion and small bilateral pleural effusions suggesting mild congestive heart failure. Moderate cardiomegaly. Left side pacemaker and right internal jugular dialysis catheter in place changes overall similar compared to prior chest x-ray. SUBJECTIVE: 06/13/2025: Patient was seen and examined in room 431. Patients feels better today. Patient denies shortness of breath since she was put on nasal cannula. Patient mentioned she used to have CPAP many years ago but since it was recalled she never get a new one and thinks that that was the reason for her worsening shortness of breath. Patient denies any fever, chills, chest pain, pedal edema, Orthopnea, palpitations today. Vitals today- Temperature-97.9, Pulse-76, Respiratory rate-20, Blood pressure-133/63. Spo2-96. Troponin today - 183>167. REVIEW OF SYSTEMS CONSTITUTIONAL: Denies fevers, chills, or night sweats. No unintentional weight loss reported. NEUROLOGICAL: Denies headache, amaurosis fugax, motor weakness, sensory deficit, vertigo/spinning sensation, gait abnormalities, or tremors. ENT: No hearing loss, otalgia, otorrhea, rhinitis, rhinorrhea, hoarseness, or sore throat. CARDIOVASCULAR: Palpitation Denies any exertional angina, dyspnea on exertion, orthopnea, paroxysmal nocturnal dyspnea,life-threatening arrhythmias, claudication. PULMONARY: Shortness of breaths Denies cough, phlegm/sputum, hemoptysis, pleuritic chest pain. SLEEP: Denies morning headaches, daytime somnolence or napping. Denies difficulty falling asleep, staying asleep, waking from sleep. Denies knowledge of snoring. GASTROINTESTINAL: Denies any type of dysphagia to either liquids or solids. Denies nausea, vomiting, pyrosis, early satiety, abdominal pain, diarrhea, constipation, or changes in stool consistency or caliber. Denies coffee-ground emesis, hematemesis, hematochezia, or melanotic stools. GENITOURINARY: Denies frequency, urgency, nocturia, hematuria or incontinence (Storage/Irritative symptoms.) Low urinary stream, straining to void, urinary intermittency or hesitancy, splitting of the voiding stream, terminal dribbling. ENDOCRINOLOGIC: Denies polyuria, polydipsia, polyphagia or heat/cold intolerances. HEMATOLOGIC: Denies thrombophilia/previous clots, or coagulopathy/bleeding disorders. ONCOLOGIC: Denies personal history of malignancy. DERMATOLOGIC: Denies rashes or pruritus. PSYCHIATRIC: Denies any suicidal or homicidal ideation. Denies hallucinations. PHYSICAL EXAM GENERAL APPEARANCE: The patient is awake, alert, and oriented, in no acute cardiopulmonary distress. NEUROLOGICAL: Cranial nerves II-XII grossly intact. Motor is 5/5 in bilateral upper and lower extremities proximal to distal. No sensory deficits. HEENT: Face is symmetric. Pupils are equal and reactive. Extraocular movements are intact. NECK: Supple. No JVD. No thyromegaly. No submental, submandibular, pre- /postauricular, occipital or supraclavicular lymphadenopathy. CHEST: Normal chest expansion. No Telemetry. LUNGS: Absence of any rales, rhonchi or any wheezing. CARDIOVASCULAR: Regular. S1 and S2 normal. No appreciable rubs, murmurs or gallops. ABDOMEN: Soft, nontender, and nondistended. There is no rebound, voluntary guarding, or rigidity. : Deferred. No Jaquez. EXTREMITIES: Non-edematous and not cyanotic. No clubbing. Good capillary refill. SKIN: No skin breakdown. Vital Signs (last 8hr) Date Time Temp Pulse Resp B/P (MAP) Pulse Ox O2 Delivery O2 Flow Rate FiO2 06/13/25 13:34 88 90 Room Air 06/13/25 12:00 97.9 74 18 135/65 97 Room Air 06/13/25 08:00 98.1 75 18 134/69 94 Nasal Cannula 3.0 06/13/25 07:50 Nasal Cannula* 3 32 LABS: Laboratory: Test 06/13/25 11:25 06/13/25 10:08 06/13/25 05:24 06/12/25 17:35 Range/Units Whole Blood Glucose 90 70-110 MG/DL Troponin I High Sensitivity 167 *H 4-50 ng/L White Blood Count 5.2 4.8-10.8 K/uL Red Blood Count 3.50 L 4.00-5.50 MIL/uL Hemoglobin 11.1 L 12.0-16.0 g/dL Hematocrit 34.7 L 36-48 % Mean Corpuscular Volume 99.1 H 79-99 fL Mean Corpuscular Hemoglobin 31.7 27.0-33.0 pg Mean Corpuscular Hemoglobin Concent 32.0 32.0-36.0 g/dL Red Cell Distribution Width 13.9 11.0-15.5 % Platelet Count 90 L 130-400 K/uL Mean Platelet Volume 10.9 H 7.5-10.5 fL Immature Granulocyte % (Auto) 0.4 0-1 % Neutrophils (%) (Auto) 75.9 40.0-77.0 % Lymphocytes (%) (Auto) 14.8 L 21.0-51.0 % Monocytes (%) (Auto) 5.0 3.0-13.0 % Eosinophils (%) (Auto) 3.3 0.0-8.0 % Basophils (%) (Auto) 0.6 0.0-5.0 % Neutrophils # (Auto) 4.0 1.8-7.7 K/uL Lymphocytes # (Auto) 0.8 L 1.0-4.8 K/uL Monocytes # (Auto) 0.3 0.1-1.0 K/uL Eosinophils # (Auto) 0.17 0.00-0.70 K/uL Basophils # (Auto) 0.03 0.00-0.20 K/uL Absolute Immature Granulocyte (auto 0.02 0-1 K/uL Nucleated Red Blood Cells 0.0 0.0-0.19 % Sodium Level 137 136-145 mmol/L Potassium Level 4.9 3.5-5.1 mmol/L Chloride Level 97 L 101-111 mmol/L Carbon Dioxide Level 29 21-32 mmol/L Blood Urea Nitrogen 38 H 7-18 mg/dL Creatinine 4.7 H 0.5-1.0 mg/dL Glomerular Filtration Rate Calc 9 >90 mL/min Random Glucose 65 L 70-105 mg/dL Total Calcium 9.1 8.5-10.1 mg/dL Magnesium Level 2.10 1.80-2.40 mg/dL Total Bilirubin 0.8 0.2-1.0 mg/dL Aspartate Amino Transf (AST/SGOT) 26 10-37 U/L Alanine Aminotransferase (ALT/SGPT) 27 12-78 U/L Alkaline Phosphatase 74 50-136 U/L B-Type Natriuretic Peptide > 5000 H 0-100 pg/mL Total Protein 6.6 6.0-8.3 g/dL Albumin 3.1 L 3.5-5.0 g/dL SARS-CoV-2 Antigen (Rapid) PRESUMPTIVE NEGATIVE NEGATIVE Test 06/12/25 17:18 Range/Units White Cell Morphology Comment See comments Lactic Acid Level 0.9 0.8-2.5 mmol/L Current Medications Medications (Trade) Dose Ordered Sig/Mg Route PRN Reason Start Time Stop Time Status Last Admin Dose Admin Acetaminophen (TYLenol 325MG TAB) 650 mg Q4H PRN PO MILD PAIN (1-3) 06/12/25 20:00 07/12/25 19:59 Acetaminophen (TYLenol 325MG TAB) 650 mg Q6H PRN PO TEMPERATURE GREATER THAN 101.5 06/12/25 20:00 07/12/25 19:59 Apixaban (EliquIS 2.5 mg) 2.5 mg BID PO 06/13/25 11:00 07/13/25 10:59 06/13/25 11:51 2.5 MG Atorvastatin Calcium (LIPItor 20MG) 20 mg HS PO 06/12/25 21:00 07/12/25 20:59 06/12/25 21:59 20 MG Ergocalciferol (Drisdol) 50,000 unit QWEEK PO 06/20/25 09:00 07/20/25 08:59 Famotidine (Pepcid 20mg Tab) 20 mg Q48H PO 06/12/25 20:00 07/12/25 19:59 06/12/25 21:59 20 MG Furosemide (LASix 20MG VIAL) 20 mg DAILY IV 06/13/25 09:00 07/13/25 08:59 06/13/25 09:11 20 MG Gabapentin (NEURontin 100 mg CAP) 100 mg BID PO 06/13/25 21:00 07/13/25 20:59 Guaifenesin/ Dextromethorphan (RobiTUSSin DM 200/20MG 10ML) 10 ml Q4H PRN PO COUGH 06/12/25 20:00 07/12/25 19:59 Levothyroxine Sodium (SYNTHroid 75MCG TAB) 75 mcg SYN PO 06/13/25 06:30 07/13/25 06:29 06/13/25 06:24 75 MCG Metoprolol Succinate (TopROL XL) 25 mg DAILY PO 06/14/25 09:00 06/13/25 13:12 DC Metoprolol Tartrate (loprESSOR) 12.5 mg BID PO 06/12/25 21:00 06/13/25 10:46 DC 06/13/25 09:11 12.5 MG Miscellaneous Medication (Levothyroxine Sodium (Levothyroxine)) 75 mcg ACBKFST PO 06/13/25 07:30 06/12/25 20:11 DC Nitroglycerin (Nitrostat) 0.4 mg PROTOCOL PRN SL CHEST PAIN 06/12/25 20:00 07/12/25 19:59 Ondansetron HCl (zoFRAN 4MG INJ) 4 mg Q6H PRN IV NAUSEA/VOMITING 06/12/25 20:00 07/12/25 19:59 Sacubitril/ Valsartan (Entresto 24 Mg-26 Mg Tablet) 0.5 each BID PO 06/12/25 21:00 06/13/25 13:12 DC 06/13/25 09:11 0.5 EACH Vitamin B Complex/ Vit C/Folic Acid (Nephrovite Tablet) 1 cap DAILY PO 06/14/25 09:00 07/14/25 08:59 DIAGNOSTICS / RADIOLOGY: CHEST X-RAY PATIENT: RAGHU PERKINS MR#: [id number] : 1940 SEX: F AGE: 84 LOCATION: [facility] ORDER 05 STATUS: REG REPORT#: [id number] SERVICE 04 REASON: PALPITATION ORDERING PHYSICIAN: JOSE G KWON NP PROCEDURE: CXR1VW - CHEST 1VW EXAM: XR Chest, 1 View. CLINICAL HISTORY: 84-year-old female with palpitation. COMPARISON: XR Chest 04/26/25 07:26 FINDINGS: LUNGS: Trace atelectasis/infiltrate. Mild pulmonary congestion suggesting mild congestive heart failure. PLEURAL SPACES: Small bilateral pleural effusions. No pneumothorax. HEART: Moderate cardiomegaly. Left side pacemaker. BONES: No acute osseous abnormality. LINES AND TUBES: Right internal jugular dialysis catheter. IMPRESSION: 1. Mild pulmonary congestion and small bilateral pleural effusions, suggesting mild congestive heart failure. 2. Moderate cardiomegaly. 3. Left side pacemaker and right internal jugular dialysis catheter in place. 4. Changes overall similar compared to prior chest x-ray 07:26 04/26/25. /[place] DICTATED BY: NURIA IRWIN MD DATE: 06/12/251951 ELECTRONICALLY SIGNED BY: NURIA IRWIN MD DATE: 06/12/251951 ASSESSMENT: Acute on chronic combined systolic and diastolic heart failure, POA Chronic elevated troponin in the setting of acute CHF POA Paroxysmal atrial fibrillation, POA. Acute thrombocytopenia POA Chronic anemia due to CKD POA End-stage renal disease on hemodialysis POA Cardiac pacemaker /AICD status POA Hypothyroidism POA Hyperlipidemia POA Diabetes POA PLAN: Acute on chronic combined systolic and diastolic heart failure, POA * Chest x-ray demonstrated small bilateral pleural effusions with pulmonary vascular congestion * BNP > 5000, Cardiology was consulted. * Elevated Troponin of 158 and 183, and 167 * Was on GDMT: Entresto 24-26 mg, 0.5 tablets b.i.d. and transition from Metoprolol tartrate 12.5 mg b.i.d. to Toprol 25mg daily. But based on cardiology recommendations. They stopped her metoprolol and entresto due to hypotension during dialysis and they are going to assess her need for midodrine during dialysis tomorrow with omitting both BP meds. * Lasix 20 mg was stopped. * LVEF of 20 25% with stage III diastolic dysfunction via 2D echo on 04/29/2025. * Normal Lexiscan stress test on 08/26/2023 * Recommend fluid removal via hemodialysis. Chronic elevated troponin in the setting of acute CHF * Troponin trends 158>183>167. * Will monitor and order labs tomorrow. Paroxysmal atrial fibrillation * Telemetry currently demonstrating V pacing HR in 70's * Resume Eliquis 2.5mg bid and Toprol 25mg daily Acute thrombocytopenia POA * Thrombocytes trend - 91>90. * Will monitor and order labs tomorrow. Chronic anemia due to CKD POA * Hemoglobin trend - 11.0>11.1 * Will monitor and order labs tomorrow. End-stage renal disease on hemodialysis POA * Nephrology was consulted. * Patient scheduled for hemodialysis on Thursday, Thursday, Thursday. * Will continue hemodialysis as scheduled. 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 GI prophylaxis: famotidine 20 mg p.o. q.48h DVT prophylaxis: SCD was placed. ATTESTATION BY PHYSICIAN I have seen and examined the patient. I reviewed the documentation, medical decision making, and treatment plan as noted by the resident provider above. I agree with the findings and plan of care. MONROE STEELE MD, SHAJI MD Jun 13, 2025 15:57
[2025-06-13] MEDS: guaiFENesin-DM 200/20MG 10ML PO PRN (21:01)
[2025-06-14] VITALS (22 sets, daily range): BP systolic 116–158; BP diastolic 8–90; PULSE 67–87; RESP 16–20; TEMP 96.8–98.4; O2SAT 90–95
[2025-06-14 04:41] LABS: IMMATURE GRANULOCYTE ABSOLUTE 0.02 K/uL (0-1); NUCLEATED RED BLOOD CELLS 0.0 % (0.0-0.19); PLATELET COUNT (AUTO) 100 K/uL (130-400); RED BLOOD CELL COUNT(AUTO) 3.35 MIL/uL (4.00-5.50); RED CELL DISTRIBUTION WIDTH 13.8 % (11.0-15.5); WHITE BLOOD COUNT (AUTO) 6.0 K/uL (4.8-10.8)
--- NOTE | 2025-06-14 04:41 | NUR ---
nurse note patient alert and oriented times 3. plan of care discussed with her and she verbalized understanding. patient has no pain. she has slept about 6 hours tonight. she is oliguric and incontinent on a brief. she calls when she urinates. she does not get out of bed. call light within reach, bed alarm on, 2 side rails up. will continue to monitor patient.
[2025-06-14 05:18] LABS: ASPARTATE AMINOTRANSFERASE 20.0 U/L (10-37); CREATININE 6.0 mg/dL (0.5-1.0); GLOMERULAR FILTR. RATE CALC 7.0 mL/min (>90); GLUCOSE,RANDOM 94.0 mg/dL (70-105); PHOSPHORUS 5.8 mg/dL (2.5-4.9); SODIUM SERUM 138.0 mmol/L (136-145); TOTAL PROTEIN, SERUM 6.4 g/dL (6.0-8.3); UREA NITROGEN, BLOOD 49.0 mg/dL (7-18)
--- NOTE | 2025-06-14 07:39 | NUR ---
dialysis spoke with abel villa about dialysis stat. he said they will do it today
[2025-06-14] MEDS: Vitamin B Complex/Vit C/Folic Acid PO SCH (08:46)
--- NOTE | 2025-06-14 09:17 | PN ---
[facility] CARDIOLOGY PROGRESS NOTE Date Patient Seen: Jun 14, 2025 Time of Visit: 09:13 Problem List: AEHFREF Interval History: Patient transitioned to 2L O2 via NC Denies any further shortness of breath No orthopnea PND or lower extremity edema She reports checking her BPs at home daily, with well controlled BPs despite taking her CHF GDMT daily, with midodrine prior to HD and reportedly no issues with hypotension during HD on this regimen. Physical Examination: GENERAL: [No acute distress.] HEAD: [Normal with no signs of head trauma.] NECK: [Normal carotid upstrokes without bruits.] LUNGS: no distress. on 2L O2 via NC. crackles bibasilarly.] HEART: [Normal rate and rhythm. Normal S1 and S2 without murmurs, gallop or rub.] VASC: [Peripheral pulses +2 bilaterally.] EXT: [No cyanosis or edema.] SKIN: [No rashes or lesions noted.] NEURO: [Awake, alert, and oriented x3. No focal sensory or strength deficits noted.] Laboratory: [ ] Hematology Labs: Test 06/14/25 04:36 06/12/25 17:18 Range/Units White Blood Count 6.0 4.8-10.8 K/uL Red Blood Count 3.35 L 4.00-5.50 MIL/uL Hemoglobin 10.7 L 12.0-16.0 g/dL Hematocrit 32.7 L 36-48 % Mean Corpuscular Volume 97.6 79-99 fL Mean Corpuscular Hemoglobin 31.9 27.0-33.0 pg Mean Corpuscular Hemoglobin Concent 32.7 32.0-36.0 g/dL Red Cell Distribution Width 13.8 11.0-15.5 % Platelet Count 100 L 130-400 K/uL Mean Platelet Volume 10.9 H 7.5-10.5 fL Immature Granulocyte % (Auto) 0.3 0-1 % Neutrophils (%) (Auto) 76.2 40.0-77.0 % Lymphocytes (%) (Auto) 15.1 L 21.0-51.0 % Monocytes (%) (Auto) 4.7 3.0-13.0 % Eosinophils (%) (Auto) 3.4 0.0-8.0 % Basophils (%) (Auto) 0.3 0.0-5.0 % Neutrophils # (Auto) 4.5 1.8-7.7 K/uL Lymphocytes # (Auto) 0.9 L 1.0-4.8 K/uL Monocytes # (Auto) 0.3 0.1-1.0 K/uL Eosinophils # (Auto) 0.20 0.00-0.70 K/uL Basophils # (Auto) 0.02 0.00-0.20 K/uL Absolute Immature Granulocyte (auto 0.02 0-1 K/uL Nucleated Red Blood Cells 0.0 0.0-0.19 % White Cell Morphology Comment See comments Chemistry Labs: Test 06/14/25 05:19 06/14/25 04:36 06/13/25 10:08 06/12/25 17:18 Range/Units Whole Blood Glucose 99 70-110 MG/DL Sodium Level 138 136-145 mmol/L Potassium Level 4.9 3.5-5.1 mmol/L Chloride Level 97 L 101-111 mmol/L Carbon Dioxide Level 30 21-32 mmol/L Blood Urea Nitrogen 49 H 7-18 mg/dL Creatinine 6.0 H 0.5-1.0 mg/dL Glomerular Filtration Rate Calc 7 >90 mL/min Random Glucose 94 70-105 mg/dL Total Calcium 8.8 8.5-10.1 mg/dL Phosphorus Level 5.8 H 2.5-4.9 mg/dL Magnesium Level 2.10 1.80-2.40 mg/dL Total Bilirubin 0.7 0.2-1.0 mg/dL Aspartate Amino Transf (AST/SGOT) 20 10-37 U/L Alanine Aminotransferase (ALT/SGPT) 26 12-78 U/L Alkaline Phosphatase 69 50-136 U/L B-Type Natriuretic Peptide 4560 H 0-100 pg/mL Total Protein 6.4 6.0-8.3 g/dL Albumin 3.1 L 3.5-5.0 g/dL Troponin I High Sensitivity 167 *H 4-50 ng/L Lactic Acid Level 0.9 0.8-2.5 mmol/L Impression and Plan: 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 ESRD on MWF HD left heart catheterization 05/02/2025 which showed normal coronary arteries complete heart block status post dual-chamber pacemaker insertion 01/05/2019, paroxysmal atrial fibrillation, hypertension, hypothyroidism, interstitial fibrosis Diuresis per HD She makes minimal urine so IV diuretics may be not helpful Her CHF GDMT has been discontinued to ascertain her BP trend, to see if we can avoid midodrine use, however she seems to keep on top of her medications and her ambulatory BP readings. CLAIRE MCDANIEL DO Jun 14, 2025 09:17
[2025-06-14] MEDS: 0.9%NACL 1000ML 1,000 ML IV ONE (09:52)
--- NOTE | 2025-06-14 12:33 | PN ---
[facility] PROGRESS NOTE Date of Service: Jun 14, 2025 Time of Service: 12:22 HISTORY OF PRESENT ILLNESS: This is a an 84-year-old female with past medical history of hyperlipidemia, hypothyroidism, CHF with AICD/ PPM , AFib on Eliquis, diabetes, hypertension and end-stage renal disease on hemodialysis Thursday,who presents to the ED via ambulance for complaints of shortness of breath with some chest pressure during hemodialysis treatment.Patient reports she started having palpitation and shortness of breath last night and symptoms went away on its own and she woke up today feeling fine and had to get up early she said for her scheduled dialysis.Patient reports she usually get dialyzed for 3.5 hours but today she was only told that she missed 1 more hour because it was stopped because she was having palpitation and shortness of breath during the treatment and was transferred here in the ER.Patient reports she was recently admitted in this facility 7 weeks ago for a PPM battery exchanged and she had similar symptoms from previous admission so she decided to come and be evaluated.On examination,patient is awake,alert and coherent.Patient denies fever,chest pain,palpitation and shortness of breath,edema,nausea and vomiting.Patient reports she never had chest pain only palpitation she said.Patient also mentioned she used to have CPAP many years ago but since it was recalled she never get a new one she said. Latest vital signs temperature 98.1, heart rate 79, blood pressure 144/78 saturation 99% on 2 L. labs: Hemoglobin 11, hematocrit 33, platelet count 91. Chloride 97, CO2 31, BUN 34, creatinine 4, GFR 11 BNP 4980, troponin 158. SARS COVID negative. EKG result revealed sinus rhythm heart rate 84 with left atrial enlargement chronic changes in anterolateral leads. Chest x-ray result revealed mild pulmonary congestion and small bilateral pleural effusions suggesting mild congestive heart failure. Moderate cardiomegaly. Left side pacemaker and right internal jugular dialysis catheter in place changes overall similar compared to prior chest x-ray. SUBJECTIVE: 06/13/2025: Patient was seen and examined in room 431. Patients feels better today. Patient denies shortness of breath since she was put on nasal cannula. Patient mentioned she used to have CPAP many years ago but since it was recalled she never get a new one and thinks that that was the reason for her worsening shortness of breath. Patient denies any fever, chills, chest pain, pedal edema, Orthopnea, palpitations today. Vitals today- Temperature-97.9, Pulse-76, Respiratory rate-20, Blood pressure-133/63. Spo2-96. Troponin today - 183>167. 06/14/2025: Patient was seen and examined in room 431. Patients feels better today. Patient was undergoing dialysis. During dialysis patient blood pressure was in 130s/90s to 140s/90s. Patient denies any fever, chills, chest pain, pedal edema, Orthopnea, palpitations today. Patient denies any lightheadedness. Vitals today- Temperature-97.9, Pulse-81, Respiratory rate-16, Blood pressure-149/79. Spo2-97. Troponin on 06/13/25 - 183>167. BNP today- 4560 REVIEW OF SYSTEMS CONSTITUTIONAL: Denies fevers, chills, or night sweats. No unintentional weight loss reported. NEUROLOGICAL: Denies headache, amaurosis fugax, motor weakness, sensory deficit, vertigo/spinning sensation, gait abnormalities, or tremors. ENT: No hearing loss, otalgia, otorrhea, rhinitis, rhinorrhea, hoarseness, or sore throat. CARDIOVASCULAR: Palpitation Denies any exertional angina, dyspnea on exertion, orthopnea, paroxysmal nocturnal dyspnea,life-threatening arrhythmias, claudication. PULMONARY: Shortness of breaths Denies cough, phlegm/sputum, hemoptysis, pleuritic chest pain. SLEEP: Denies morning headaches, daytime somnolence or napping. Denies difficulty falling asleep, staying asleep, waking from sleep. Denies knowledge of snoring. GASTROINTESTINAL: Denies any type of dysphagia to either liquids or solids. Denies nausea, vomiting, pyrosis, early satiety, abdominal pain, diarrhea, constipation, or changes in stool consistency or caliber. Denies coffee-ground emesis, hematemesis, hematochezia, or melanotic stools. GENITOURINARY: Denies frequency, urgency, nocturia, hematuria or incontinence (Storage/Irritative symptoms.) Low urinary stream, straining to void, urinary intermittency or hesitancy, splitting of the voiding stream, terminal dribbling. ENDOCRINOLOGIC: Denies polyuria, polydipsia, polyphagia or heat/cold intolerances. HEMATOLOGIC: Denies thrombophilia/previous clots, or coagulopathy/bleeding disorders. ONCOLOGIC: Denies personal history of malignancy. DERMATOLOGIC: Denies rashes or pruritus. PSYCHIATRIC: Denies any suicidal or homicidal ideation. Denies hallucinations. PHYSICAL EXAM GENERAL APPEARANCE: The patient is awake, alert, and oriented, in no acute cardiopulmonary distress. NEUROLOGICAL: Cranial nerves II-XII grossly intact. Motor is 5/5 in bilateral upper and lower extremities proximal to distal. No sensory deficits. HEENT: Face is symmetric. Pupils are equal and reactive. Extraocular movements are intact. NECK: Supple. No JVD. No thyromegaly. No submental, submandibular, pre- /postauricular, occipital or supraclavicular lymphadenopathy. CHEST: Normal chest expansion. No Telemetry. LUNGS: Absence of any rales, rhonchi or any wheezing. CARDIOVASCULAR: Regular. S1 and S2 normal. No appreciable rubs, murmurs or gallops. ABDOMEN: Soft, nontender, and nondistended. There is no rebound, voluntary guarding, or rigidity. : Deferred. No Jaquez. EXTREMITIES: Non-edematous and not cyanotic. No clubbing. Good capillary refill. SKIN: No skin breakdown. Vital Signs (last 8hr) Date Time Temp Pulse Resp B/P (MAP) Pulse Ox O2 Delivery O2 Flow Rate FiO2 06/14/25 11:48 76 17 149/79 97 Room Air 3.0 06/14/25 08:45 97.9 81 16 128/75 Nasal Cannula 3.0 06/14/25 08:00 90 Nasal Cannula* 4 36 06/14/25 07:53 96.8 82 16 132/90 90 Room Air LABS: Laboratory: Test 06/14/25 11:00 06/14/25 04:36 06/13/25 10:08 06/12/25 17:35 Range/Units Whole Blood Glucose 85 70-110 MG/DL White Blood Count 6.0 4.8-10.8 K/uL Red Blood Count 3.35 L 4.00-5.50 MIL/uL Hemoglobin 10.7 L 12.0-16.0 g/dL Hematocrit 32.7 L 36-48 % Mean Corpuscular Volume 97.6 79-99 fL Mean Corpuscular Hemoglobin 31.9 27.0-33.0 pg Mean Corpuscular Hemoglobin Concent 32.7 32.0-36.0 g/dL Red Cell Distribution Width 13.8 11.0-15.5 % Platelet Count 100 L 130-400 K/uL Mean Platelet Volume 10.9 H 7.5-10.5 fL Immature Granulocyte % (Auto) 0.3 0-1 % Neutrophils (%) (Auto) 76.2 40.0-77.0 % Lymphocytes (%) (Auto) 15.1 L 21.0-51.0 % Monocytes (%) (Auto) 4.7 3.0-13.0 % Eosinophils (%) (Auto) 3.4 0.0-8.0 % Basophils (%) (Auto) 0.3 0.0-5.0 % Neutrophils # (Auto) 4.5 1.8-7.7 K/uL Lymphocytes # (Auto) 0.9 L 1.0-4.8 K/uL Monocytes # (Auto) 0.3 0.1-1.0 K/uL Eosinophils # (Auto) 0.20 0.00-0.70 K/uL Basophils # (Auto) 0.02 0.00-0.20 K/uL Absolute Immature Granulocyte (auto 0.02 0-1 K/uL Nucleated Red Blood Cells 0.0 0.0-0.19 % Sodium Level 138 136-145 mmol/L Potassium Level 4.9 3.5-5.1 mmol/L Chloride Level 97 L 101-111 mmol/L Carbon Dioxide Level 30 21-32 mmol/L Blood Urea Nitrogen 49 H 7-18 mg/dL Creatinine 6.0 H 0.5-1.0 mg/dL Glomerular Filtration Rate Calc 7 >90 mL/min Random Glucose 94 70-105 mg/dL Total Calcium 8.8 8.5-10.1 mg/dL Phosphorus Level 5.8 H 2.5-4.9 mg/dL Magnesium Level 2.10 1.80-2.40 mg/dL Total Bilirubin 0.7 0.2-1.0 mg/dL Aspartate Amino Transf (AST/SGOT) 20 10-37 U/L Alanine Aminotransferase (ALT/SGPT) 26 12-78 U/L Alkaline Phosphatase 69 50-136 U/L B-Type Natriuretic Peptide 4560 H 0-100 pg/mL Total Protein 6.4 6.0-8.3 g/dL Albumin 3.1 L 3.5-5.0 g/dL Troponin I High Sensitivity 167 *H 4-50 ng/L SARS-CoV-2 Antigen (Rapid) PRESUMPTIVE NEGATIVE NEGATIVE Test 06/12/25 17:18 Range/Units White Cell Morphology Comment See comments Lactic Acid Level 0.9 0.8-2.5 mmol/L Current Medications Medications (Trade) Dose Ordered Sig/Mg Route PRN Reason Start Time Stop Time Status Last Admin Dose Admin Acetaminophen (TYLenol 325MG TAB) 650 mg Q4H PRN PO MILD PAIN (1-3) 06/12/25 20:00 07/12/25 19:59 Acetaminophen (TYLenol 325MG TAB) 650 mg Q6H PRN PO TEMPERATURE GREATER THAN 101.5 06/12/25 20:00 07/12/25 19:59 Apixaban (EliquIS 2.5 mg) 2.5 mg BID PO 06/13/25 11:00 07/13/25 10:59 06/14/25 08:47 2.5 MG Atorvastatin Calcium (LIPItor 20MG) 20 mg HS PO 06/12/25 21:00 07/12/25 20:59 06/13/25 20:57 20 MG Ergocalciferol (Drisdol) 50,000 unit QWEEK PO 06/20/25 09:00 07/20/25 08:59 Famotidine (Pepcid 20mg Tab) 20 mg Q48H PO 06/12/25 20:00 07/12/25 19:59 06/12/25 21:59 20 MG Furosemide (LASix 20MG VIAL) 20 mg DAILY IV 06/13/25 09:00 06/13/25 15:08 DC 06/13/25 09:11 20 MG Gabapentin (NEURontin 100 mg CAP) 100 mg BID PO 06/13/25 21:00 07/13/25 20:59 06/13/25 20:56 100 MG Guaifenesin/ Dextromethorphan (RobiTUSSin DM 200/20MG 10ML) 10 ml Q4H PRN PO COUGH 06/12/25 20:00 07/12/25 19:59 06/14/25 05:38 10 ML Levothyroxine Sodium (SYNTHroid 75MCG TAB) 75 mcg SYN PO 06/13/25 06:30 07/13/25 06:29 06/14/25 05:35 75 MCG Metoprolol Succinate (TopROL XL) 25 mg DAILY PO 06/14/25 09:00 06/13/25 13:12 DC Metoprolol Tartrate (loprESSOR) 12.5 mg BID PO 06/12/25 21:00 06/13/25 10:46 DC 06/13/25 09:11 12.5 MG Miscellaneous Medication (Levothyroxine Sodium (Levothyroxine)) 75 mcg ACBKFST PO 06/13/25 07:30 06/12/25 20:11 DC Nitroglycerin (Nitrostat) 0.4 mg PROTOCOL PRN SL CHEST PAIN 06/12/25 20:00 07/12/25 19:59 Ondansetron HCl (zoFRAN 4MG INJ) 4 mg Q6H PRN IV NAUSEA/VOMITING 06/12/25 20:00 07/12/25 19:59 Sacubitril/ Valsartan (Entresto 24 Mg-26 Mg Tablet) 0.5 each BID PO 06/12/25 21:00 06/13/25 13:12 DC 06/13/25 09:11 0.5 EACH Vitamin B Complex/ Vit C/Folic Acid (Nephrovite Tablet) 1 cap DAILY PO 06/14/25 09:00 07/14/25 08:59 06/14/25 08:46 1 CAP DIAGNOSTICS / RADIOLOGY: CHEST X-RAY PATIENT: RAGHU PERKINS MR#: [id number] : 1940 SEX: F AGE: 84 LOCATION: [facility] ORDER 05 STATUS: REG REPORT#: [id number] SERVICE 04 REASON: PALPITATION ORDERING PHYSICIAN: JOSE G KWON NP PROCEDURE: CXR1VW - CHEST 1VW EXAM: XR Chest, 1 View. CLINICAL HISTORY: 84-year-old female with palpitation. COMPARISON: XR Chest 04/26/25 07:26 FINDINGS: LUNGS: Trace atelectasis/infiltrate. Mild pulmonary congestion suggesting mild congestive heart failure. PLEURAL SPACES: Small bilateral pleural effusions. No pneumothorax. HEART: Moderate cardiomegaly. Left side pacemaker. BONES: No acute osseous abnormality. LINES AND TUBES: Right internal jugular dialysis catheter. IMPRESSION: 1. Mild pulmonary congestion and small bilateral pleural effusions, suggesting mild congestive heart failure. 2. Moderate cardiomegaly. 3. Left side pacemaker and right internal jugular dialysis catheter in place. 4. Changes overall similar compared to prior chest x-ray 07:26 04/26/25. /[facility] DICTATED BY: NURIA IRWIN MD DATE: 06/12/251951 ELECTRONICALLY SIGNED BY: NURIA IRWIN MD DATE: 06/12/251951 ASSESSMENT: Acute on chronic combined systolic and diastolic heart failure, POA Chronic elevated troponin in the setting of acute CHF POA Paroxysmal atrial fibrillation, POA. Acute thrombocytopenia POA Chronic anemia due to CKD POA End-stage renal disease on hemodialysis POA Cardiac pacemaker /AICD status POA Hypothyroidism POA Hyperlipidemia POA Diabetes POA PLAN: Acute on chronic combined systolic and diastolic heart failure, POA * Chest x-ray demonstrated small bilateral pleural effusions with pulmonary vascular congestion * BNP > 5000, today it was 4560. Cardiology was consulted. * Elevated Troponin of 158 and 183, and 167 * Was on GDMT: Entresto 24-26 mg, 0.5 tablets b.i.d. and transition from Metoprolol tartrate 12.5 mg b.i.d. to Toprol 25mg daily. But based on cardiology recommendations. They stopped her metoprolol and entresto due to hypotension during dialysis and they are going to assess her need for midodrine during dialysis tomorrow with omitting both BP meds. * Lasix 20 mg was stopped. * LVEF of 20 25% with stage III diastolic dysfunction via 2D echo on 04/29/2025. * Normal Lexiscan stress test on 08/26/2023 * Recommend fluid removal via hemodialysis. Chronic elevated troponin in the setting of acute CHF * Troponin trends 158>183>167 on 06/13/25. * Will monitor and order labs tomorrow. Paroxysmal atrial fibrillation * Telemetry currently demonstrating V pacing HR in 70's * Resume Eliquis 2.5mg bid and Toprol 25mg daily Acute thrombocytopenia POA * Thrombocytes trend - 91>90>100. * Will monitor and order labs tomorrow. Chronic anemia due to CKD POA * Hemoglobin trend - 11.0>11.1>10.7 * Will monitor and order labs tomorrow. End-stage renal disease on hemodialysis POA * Nephrology was consulted. * Patient scheduled for hemodialysis on Thursday, Thursday, Thursday. * Will continue hemodialysis as scheduled. She underwent her scheduled dialysis of Thursday today. * will continue on renal dialysis diet Cardiac pacemaker /AICD status POA * Complete Heart Block s/p Permanent Pacemaker inserted on 01/13/2019 with a M [employer] biventricular ICD upgrade on 05/03/2025 Hypothyroidism POA * Will continue Levothyroxine 75mcg daily Hyperlipidemia POA * Will continue Atorvastatin 20mg daily. GI prophylaxis: famotidine 20 mg p.o. q.48h DVT prophylaxis: SCD was placed. ATTESTATION BY PHYSICIAN I have seen and examined the patient. I reviewed the documentation, medical decision making, and treatment plan as noted by the resident provider above. I agree with the findings and plan of care. MONROE STEELE MD, SHAJI MD Jun 14, 2025 12:33
[2025-06-15] VITALS (8 sets, daily range): BP systolic 128–151; BP diastolic 65–83; PULSE 77–85; RESP 16–20; TEMP 97.5–98.3; O2SAT 84–96
[2025-06-15 04:41] LABS: IMMATURE GRANULOCYTE ABSOLUTE 0.04 K/uL (0-1); NUCLEATED RED BLOOD CELLS 0.0 % (0.0-0.19); PLATELET COUNT (AUTO) 104 K/uL (130-400); RED BLOOD CELL COUNT(AUTO) 3.43 MIL/uL (4.00-5.50); RED CELL DISTRIBUTION WIDTH 13.7 % (11.0-15.5); WHITE BLOOD COUNT (AUTO) 5.1 K/uL (4.8-10.8)
[2025-06-15 04:53] LABS: ASPARTATE AMINOTRANSFERASE 20.0 U/L (10-37); CREATININE 4.6 mg/dL (0.5-1.0); GLOMERULAR FILTR. RATE CALC 9.0 mL/min (>90); GLUCOSE,RANDOM 89.0 mg/dL (70-105); SODIUM SERUM 139.0 mmol/L (136-145); TOTAL PROTEIN, SERUM 6.5 g/dL (6.0-8.3); UREA NITROGEN, BLOOD 33.0 mg/dL (7-18)
--- NOTE | 2025-06-15 07:10 | PN ---
NEPHROLOGY PROGRESS NOTE Date of Service: Jun 14, 2025Thursday Time of Service: 07:10 SUBJECTIVE: [ Patient was evaluated at bedside. She is set for routine dialysis treatment today. ] REVIEW OF SYSTEMS CONSTITUTIONAL: Denies fever, chills, or fatigue. HEAD/FACE: No signs of trauma. EENT: Denies eye pain, blurred vision, double vision, or light sensitivity. RESPIRATORY: Denies shortness of breath, cough, wheezing CARDIOVASCULAR: Denies chest pain, palpitation, syncope GASTROINTESTINAL/ABDOMINAL: Denies abdominal pain, constipation, diarrhea, nausea or vomiting GENITOURINARY: Denies dysuria or hematuria. MUSCULOSKELETAL: Denies joint pain, tenderness, or trauma. INTEGUMENTARY: Denies rash or itchiness NEUROLOGICAL/PSYCH: Denies anxiety, depression, heat or cold intolerance. PHYSICAL EXAM EYES: Anicteric. Pupils equal and reactive. HENT: No oral thrush seen, moist Oral mucosa NECK: Right IJ LUNGS: Good air movement, coarse sounds bilateral bases. CARDIOVASCULAR: Regular rate and rhythm. ABDOMEN: Soft, non tender, bowel sounds present, no organomegaly CENTRAL NERVOUS SYSTEM: Awake, alert, oriented x 3. No focal deficits. EXTREMITIES: No edema Vital Signs (last 8hr) Date Time Temp Pulse Resp B/P (MAP) Pulse Ox O2 Delivery O2 Flow Rate FiO2 06/15/25 04:00 97.7 85 20 146/79 95 Nasal Cannula 3.0 06/15/25 00:00 98.2 85 18 128/65 96 Nasal Cannula 3.0 28 LABS: Laboratory: Test 06/15/25 05:38 06/15/25 04:11 06/14/25 04:36 06/13/25 10:08 Range/Units Whole Blood Glucose 93 70-110 MG/DL White Blood Count 5.1 4.8-10.8 K/uL Red Blood Count 3.43 L 4.00-5.50 MIL/uL Hemoglobin 10.8 L 12.0-16.0 g/dL Hematocrit 33.3 L 36-48 % Mean Corpuscular Volume 97.1 79-99 fL Mean Corpuscular Hemoglobin 31.5 27.0-33.0 pg Mean Corpuscular Hemoglobin Concent 32.4 32.0-36.0 g/dL Red Cell Distribution Width 13.7 11.0-15.5 % Platelet Count 104 L 130-400 K/uL Mean Platelet Volume 11.0 H 7.5-10.5 fL Immature Granulocyte % (Auto) 0.8 0-1 % Neutrophils (%) (Auto) 75.2 40.0-77.0 % Lymphocytes (%) (Auto) 14.8 L 21.0-51.0 % Monocytes (%) (Auto) 5.1 3.0-13.0 % Eosinophils (%) (Auto) 3.7 0.0-8.0 % Basophils (%) (Auto) 0.4 0.0-5.0 % Neutrophils # (Auto) 3.9 1.8-7.7 K/uL Lymphocytes # (Auto) 0.8 L 1.0-4.8 K/uL Monocytes # (Auto) 0.3 0.1-1.0 K/uL Eosinophils # (Auto) 0.19 0.00-0.70 K/uL Basophils # (Auto) 0.02 0.00-0.20 K/uL Absolute Immature Granulocyte (auto 0.04 0-1 K/uL Nucleated Red Blood Cells 0.0 0.0-0.19 % Sodium Level 139 136-145 mmol/L Potassium Level 3.8 3.5-5.1 mmol/L Chloride Level 98 L 101-111 mmol/L Carbon Dioxide Level 30 21-32 mmol/L Blood Urea Nitrogen 33 H 7-18 mg/dL Creatinine 4.6 H 0.5-1.0 mg/dL Glomerular Filtration Rate Calc 9 >90 mL/min Random Glucose 89 70-105 mg/dL Total Calcium 8.7 8.5-10.1 mg/dL Total Bilirubin 0.8 0.2-1.0 mg/dL Aspartate Amino Transf (AST/SGOT) 20 10-37 U/L Alanine Aminotransferase (ALT/SGPT) 22 12-78 U/L Alkaline Phosphatase 65 50-136 U/L Total Protein 6.5 6.0-8.3 g/dL Albumin 3.0 L 3.5-5.0 g/dL Phosphorus Level 5.8 H 2.5-4.9 mg/dL Magnesium Level 2.10 1.80-2.40 mg/dL B-Type Natriuretic Peptide 4560 H 0-100 pg/mL Troponin I High Sensitivity 167 *H 4-50 ng/L DIAGNOSTICS / RADIOLOGY: [ ] ASSESSMENT: [ ESRD on hemodialysis Pulmonary congestion/small bilateral pleural effusions Acute on chronic CHF Elevated BNP greater than 5000 Hypertroponinemia 158 Anemia of chronic disease Hyperphosphatemia Hypoalbuminemia ] PLAN: [ 1. ESRD on hemodialysis- resume routine hemodialysis MWF, 300 blood flow rate is 600 dialysate flow rate, 1L UF as tolerated, 2K and 2.5 Ca bath pending lab redraw, fluid restriction of 1.2 L, renal dialysis diet. 2. Acute on chronic CHF/pulmonary congestion/bilateral effusions- proceed with UF; cardiology following. Patient uses midodrine for bp support. 3. Anemia- keep hemoglobin above 10. 4. Hyperphosphatemia- trend labs. 5. Hypoalbuminemia-trend labs. ] This visit was rendered and documented by Annalise Barbosa, MSN, SURFACE GRINDING MACHINE HAND, SWITCHBOARD OPERATOR ASSISTANT-C and completed in collaboration with my supervising physician Janneth Mast MD. ANNALISE BARBOSA Jun 15, 2025 07:10
--- NOTE | 2025-06-15 07:12 | PN ---
NEPHROLOGY PROGRESS NOTE Date of Service: Jun 15, 2025 Time of Service: 07:11 SUBJECTIVE: [ Patient evaluated at bedside. No acute events reported by nursing. Tolerated 1 liter removal on dialysis yesterday. ] REVIEW OF SYSTEMS CONSTITUTIONAL: Denies fever, chills, or fatigue. HEAD/FACE: No signs of trauma. EENT: Denies eye pain, blurred vision, double vision, or light sensitivity. RESPIRATORY: Denies shortness of breath, cough, wheezing CARDIOVASCULAR: Denies chest pain, palpitation, syncope GASTROINTESTINAL/ABDOMINAL: Denies abdominal pain, constipation, diarrhea, nausea or vomiting GENITOURINARY: Denies dysuria or hematuria. MUSCULOSKELETAL: Denies joint pain, tenderness, or trauma. INTEGUMENTARY: Denies rash or itchiness NEUROLOGICAL/PSYCH: Denies anxiety, depression, heat or cold intolerance. PHYSICAL EXAM EYES: Anicteric. Pupils equal and reactive. HENT: No oral thrush seen, moist Oral mucosa NECK: Right IJ LUNGS: Good air movement, coarse sounds bilateral bases. CARDIOVASCULAR: Regular rate and rhythm. ABDOMEN: Soft, non tender, bowel sounds present, no organomegaly CENTRAL NERVOUS SYSTEM: Awake, alert, oriented x 3. No focal deficits. EXTREMITIES: No edema Vital Signs (last 8hr) Date Time Temp Pulse Resp B/P (MAP) Pulse Ox O2 Delivery O2 Flow Rate FiO2 06/15/25 04:00 97.7 85 20 146/79 95 Nasal Cannula 3.0 06/15/25 00:00 98.2 85 18 128/65 96 Nasal Cannula 3.0 28 LABS: Laboratory: Test 06/15/25 05:38 06/15/25 04:11 06/14/25 04:36 06/13/25 10:08 Range/Units Whole Blood Glucose 93 70-110 MG/DL White Blood Count 5.1 4.8-10.8 K/uL Red Blood Count 3.43 L 4.00-5.50 MIL/uL Hemoglobin 10.8 L 12.0-16.0 g/dL Hematocrit 33.3 L 36-48 % Mean Corpuscular Volume 97.1 79-99 fL Mean Corpuscular Hemoglobin 31.5 27.0-33.0 pg Mean Corpuscular Hemoglobin Concent 32.4 32.0-36.0 g/dL Red Cell Distribution Width 13.7 11.0-15.5 % Platelet Count 104 L 130-400 K/uL Mean Platelet Volume 11.0 H 7.5-10.5 fL Immature Granulocyte % (Auto) 0.8 0-1 % Neutrophils (%) (Auto) 75.2 40.0-77.0 % Lymphocytes (%) (Auto) 14.8 L 21.0-51.0 % Monocytes (%) (Auto) 5.1 3.0-13.0 % Eosinophils (%) (Auto) 3.7 0.0-8.0 % Basophils (%) (Auto) 0.4 0.0-5.0 % Neutrophils # (Auto) 3.9 1.8-7.7 K/uL Lymphocytes # (Auto) 0.8 L 1.0-4.8 K/uL Monocytes # (Auto) 0.3 0.1-1.0 K/uL Eosinophils # (Auto) 0.19 0.00-0.70 K/uL Basophils # (Auto) 0.02 0.00-0.20 K/uL Absolute Immature Granulocyte (auto 0.04 0-1 K/uL Nucleated Red Blood Cells 0.0 0.0-0.19 % Sodium Level 139 136-145 mmol/L Potassium Level 3.8 3.5-5.1 mmol/L Chloride Level 98 L 101-111 mmol/L Carbon Dioxide Level 30 21-32 mmol/L Blood Urea Nitrogen 33 H 7-18 mg/dL Creatinine 4.6 H 0.5-1.0 mg/dL Glomerular Filtration Rate Calc 9 >90 mL/min Random Glucose 89 70-105 mg/dL Total Calcium 8.7 8.5-10.1 mg/dL Total Bilirubin 0.8 0.2-1.0 mg/dL Aspartate Amino Transf (AST/SGOT) 20 10-37 U/L Alanine Aminotransferase (ALT/SGPT) 22 12-78 U/L Alkaline Phosphatase 65 50-136 U/L Total Protein 6.5 6.0-8.3 g/dL Albumin 3.0 L 3.5-5.0 g/dL Phosphorus Level 5.8 H 2.5-4.9 mg/dL Magnesium Level 2.10 1.80-2.40 mg/dL B-Type Natriuretic Peptide 4560 H 0-100 pg/mL Troponin I High Sensitivity 167 *H 4-50 ng/L DIAGNOSTICS / RADIOLOGY: [ ] ASSESSMENT: [ ESRD on hemodialysis Pulmonary congestion/small bilateral pleural effusions Acute on chronic CHF Elevated BNP greater than 5000 Hypertroponinemia 158 Anemia of chronic disease Hyperphosphatemia Hypoalbuminemia ] PLAN: [ 1. ESRD on hemodialysis- continue routine hemodialysis MWF, 300 blood flow rate is 600 dialysate flow rate, 1L UF as tolerated, fluid restriction of 1.2 L, renal dialysis diet. 2. Acute on chronic CHF/pulmonary congestion/bilateral effusions- proceed with UF; cardiology following. Patient uses midodrine for bp support. 3. Anemia- keep hemoglobin above 10. 4. Hyperphosphatemia- trend labs. 5. Hypoalbuminemia-trend labs. ] This visit was rendered and documented by Annalise Barbosa, MSN, [employer] PLANTATION MANAGER, HANDLE AND VENT MACHINE OPERATOR-C and completed in collaboration with my supervising physician Janneth Mast MD. ANNALISE BARBOSA HANDLE AND VENT MACHINE OPERATOR Jun 15, 2025 07:12
--- NOTE | 2025-06-15 08:35 | PN ---
[facility] CARDIOLOGY PROGRESS NOTE Cardiology progress note dictated for Netta Holden MD Date Patient Seen: Jun 15, 2025 Interval History: The patient remains on O2 at 4L via NC. O2 saturations on room air of 91-92% while in bed. The patient may benefit from a 6 minute walk to evaluate if needing home oxygen. She denies shortness of breath, orthopnea, PND or lower extremity edema. She reports checking her BPs at home daily, with well controlled BPs despite taking her CHF GDMT daily, with midodrine prior to HD and reportedly no issues with hypotension during HD on this regimen. Physical Examination: GENERAL: No acute distress. HEAD: Normal with no signs of head trauma. EYES: Conjunctiva and sclera normal. NECK: Supple without JVD. LUNGS: Fine crackles to bases bilaterally. HEART: Normal rate and rhythm. Normal S1 and S2 without murmurs, gallop or rub. VASC: Peripheral pulses +2 bilaterally. EXT: No clubbing, cyanosis or edema. NEURO: Awake, alert, and oriented x3. No focal neurological deficits noted. Laboratory: Hematology Labs: Test 06/15/25 04:11 Range/Units White Blood Count 5.1 4.8-10.8 K/uL Red Blood Count 3.43 L 4.00-5.50 MIL/uL Hemoglobin 10.8 L 12.0-16.0 g/dL Hematocrit 33.3 L 36-48 % Mean Corpuscular Volume 97.1 79-99 fL Mean Corpuscular Hemoglobin 31.5 27.0-33.0 pg Mean Corpuscular Hemoglobin Concent 32.4 32.0-36.0 g/dL Red Cell Distribution Width 13.7 11.0-15.5 % Platelet Count 104 L 130-400 K/uL Mean Platelet Volume 11.0 H 7.5-10.5 fL Immature Granulocyte % (Auto) 0.8 0-1 % Neutrophils (%) (Auto) 75.2 40.0-77.0 % Lymphocytes (%) (Auto) 14.8 L 21.0-51.0 % Monocytes (%) (Auto) 5.1 3.0-13.0 % Eosinophils (%) (Auto) 3.7 0.0-8.0 % Basophils (%) (Auto) 0.4 0.0-5.0 % Neutrophils # (Auto) 3.9 1.8-7.7 K/uL Lymphocytes # (Auto) 0.8 L 1.0-4.8 K/uL Monocytes # (Auto) 0.3 0.1-1.0 K/uL Eosinophils # (Auto) 0.19 0.00-0.70 K/uL Basophils # (Auto) 0.02 0.00-0.20 K/uL Absolute Immature Granulocyte (auto 0.04 0-1 K/uL Nucleated Red Blood Cells 0.0 0.0-0.19 % Chemistry Labs: Test 06/15/25 05:38 06/15/25 04:11 06/14/25 04:36 06/13/25 10:08 Range/Units Whole Blood Glucose 93 70-110 MG/DL Sodium Level 139 136-145 mmol/L Potassium Level 3.8 3.5-5.1 mmol/L Chloride Level 98 L 101-111 mmol/L Carbon Dioxide Level 30 21-32 mmol/L Blood Urea Nitrogen 33 H 7-18 mg/dL Creatinine 4.6 H 0.5-1.0 mg/dL Glomerular Filtration Rate Calc 9 >90 mL/min Random Glucose 89 70-105 mg/dL Total Calcium 8.7 8.5-10.1 mg/dL Total Bilirubin 0.8 0.2-1.0 mg/dL Aspartate Amino Transf (AST/SGOT) 20 10-37 U/L Alanine Aminotransferase (ALT/SGPT) 22 12-78 U/L Alkaline Phosphatase 65 50-136 U/L Total Protein 6.5 6.0-8.3 g/dL Albumin 3.0 L 3.5-5.0 g/dL Phosphorus Level 5.8 H 2.5-4.9 mg/dL Magnesium Level 2.10 1.80-2.40 mg/dL B-Type Natriuretic Peptide 4560 H 0-100 pg/mL Troponin I High Sensitivity 167 *H 4-50 ng/L Diagnostics / Radiology: Impression and Plan: 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 ESRD on MWF HD left heart catheterization 05/02/2025 which showed normal coronary arteries complete heart block status post dual-chamber pacemaker insertion 01/05/2019 paroxysmal atrial fibrillation hypertension hypothyroidism interstitial fibrosis Diuresis per HD She makes minimal urine so IV diuretics may be not helpful Her CHF GDMT has been discontinued to ascertain her BP trend, to see if we can avoid midodrine use; however, she seems to keep on top of her medications and her ambulatory BP readings. 12hr SBP ranged 116-151mmHg with out GDMT treatment. She states 1L of fluid was removed yesterday and her blood pressure did not drop during hemodialysis. No hypotensive episodes documented. LETICIA ROLON MUSIC EDUCATION ADJUNCT PROFESSOR Jun 15, 2025 08:35
[2025-06-15] MEDS: SACUBITRIL/VALSARTAN 1 EACH TABLET PO SCH (09:01)
[2025-06-15 11:56] LABS: HEPATITIS B CORE AB TOTAL Non-Reactive (Nonreactive); HEPATITIS B SURFACE ANTIBODY Negative (Reactive)
--- NOTE | 2025-06-15 14:31 | PN ---
[facility] PROGRESS NOTE Date of Service: Jun 15, 2025 Time of Service: 14:25 HISTORY OF PRESENT ILLNESS: This is a an 84-year-old female with past medical history of hyperlipidemia, hypothyroidism, CHF with AICD/ PPM , AFib on Eliquis, diabetes, hypertension and end-stage renal disease on hemodialysis Thursday,who presents to the ED via ambulance for complaints of shortness of breath with some chest pressure during hemodialysis treatment.Patient reports she started having palpitation and shortness of breath last night and symptoms went away on its own and she woke up today feeling fine and had to get up early she said for her scheduled dialysis.Patient reports she usually get dialyzed for 3.5 hours but today she was only told that she missed 1 more hour because it was stopped because she was having palpitation and shortness of breath during the treatment and was transferred here in the ER.Patient reports she was recently admitted in this facility 7 weeks ago for a PPM battery exchanged and she had similar symptoms from previous admission so she decided to come and be evaluated.On examination,patient is awake,alert and coherent.Patient denies fever,chest pain,palpitation and shortness of breath,edema,nausea and vomiting.Patient reports she never had chest pain only palpitation she said.Patient also mentioned she used to have CPAP many years ago but since it was recalled she never get a new one she said. Latest vital signs temperature 98.1, heart rate 79, blood pressure 144/78 saturation 99% on 2 L. labs: Hemoglobin 11, hematocrit 33, platelet count 91. Chloride 97, CO2 31, BUN 34, creatinine 4, GFR 11 BNP 4980, troponin 158. SARS COVID negative. EKG result revealed sinus rhythm heart rate 84 with left atrial enlargement chronic changes in anterolateral leads. Chest x-ray result revealed mild pulmonary congestion and small bilateral pleural effusions suggesting mild congestive heart failure. Moderate cardiomegaly. Left side pacemaker and right internal jugular dialysis catheter in place changes overall similar compared to prior chest x-ray. SUBJECTIVE: 06/13/2025: Patient was seen and examined in room 431. Patients feels better today. Patient denies shortness of breath since she was put on nasal cannula. Patient mentioned she used to have CPAP many years ago but since it was recalled she never get a new one and thinks that that was the reason for her worsening shortness of breath. Patient denies any fever, chills, chest pain, pedal edema, Orthopnea, palpitations today. Vitals today- Temperature-97.9, Pulse-76, Respiratory rate-20, Blood pressure-133/63. Spo2-96. Troponin today - 183>167. 06/14/2025: Patient was seen and examined in room 431. Patients feels better today. Patient was undergoing dialysis. During dialysis patient blood pressure was in 130s/90s to 140s/90s. Patient denies any fever, chills, chest pain, pedal edema, Orthopnea, palpitations today. Patient denies any lightheadedness. Vitals today- Temperature-97.9, Pulse-81, Respiratory rate-16, Blood pressure-149/79. Spo2-97. Troponin on 06/13/25 - 183>167. BNP today- 4560 06/15/25: Patient was seen and examined in room 431. Patients feels better today. Patient denies shortness of breath since she was put on nasal cannula. Patient denies any fever, chills, chest pain, pedal edema, Orthopnea, palpitations today. Vitals today- Temperature-98.2, Pulse-77, Respiratory rate- 18, Blood pressure-143/77. Spo2-96. Scheduled for Dialysis tomorrow. REVIEW OF SYSTEMS CONSTITUTIONAL: Denies fevers, chills, or night sweats. No unintentional weight loss reported. NEUROLOGICAL: Denies headache, amaurosis fugax, motor weakness, sensory deficit, vertigo/spinning sensation, gait abnormalities, or tremors. ENT: No hearing loss, otalgia, otorrhea, rhinitis, rhinorrhea, hoarseness, or sore throat. CARDIOVASCULAR: Palpitation Denies any exertional angina, dyspnea on exertion, orthopnea, paroxysmal nocturnal dyspnea,life-threatening arrhythmias, claudication. PULMONARY: Shortness of breaths Denies cough, phlegm/sputum, hemoptysis, pleuritic chest pain. SLEEP: Denies morning headaches, daytime somnolence or napping. Denies difficulty falling asleep, staying asleep, waking from sleep. Denies knowledge of snoring. GASTROINTESTINAL: Denies any type of dysphagia to either liquids or solids. Denies nausea, vomiting, pyrosis, early satiety, abdominal pain, diarrhea, constipation, or changes in stool consistency or caliber. Denies coffee-ground emesis, hematemesis, hematochezia, or melanotic stools. GENITOURINARY: Denies frequency, urgency, nocturia, hematuria or incontinence (Storage/Irritative symptoms.) Low urinary stream, straining to void, urinary intermittency or hesitancy, splitting of the voiding stream, terminal dribbling. ENDOCRINOLOGIC: Denies polyuria, polydipsia, polyphagia or heat/cold intolerances. HEMATOLOGIC: Denies thrombophilia/previous clots, or coagulopathy/bleeding disorders. ONCOLOGIC: Denies personal history of malignancy. DERMATOLOGIC: Denies rashes or pruritus. PSYCHIATRIC: Denies any suicidal or homicidal ideation. Denies hallucinations. PHYSICAL EXAM GENERAL APPEARANCE: The patient is awake, alert, and oriented, in no acute cardiopulmonary distress. NEUROLOGICAL: Cranial nerves II-XII grossly intact. Motor is 5/5 in bilateral upper and lower extremities proximal to distal. No sensory deficits. HEENT: Face is symmetric. Pupils are equal and reactive. Extraocular movements are intact. NECK: Supple. No JVD. No thyromegaly. No submental, submandibular, pre- /postauricular, occipital or supraclavicular lymphadenopathy. CHEST: Normal chest expansion. No Telemetry. LUNGS: Absence of any rales, rhonchi or any wheezing. CARDIOVASCULAR: Regular. S1 and S2 normal. No appreciable rubs, murmurs or gallops. ABDOMEN: Soft, nontender, and nondistended. There is no rebound, voluntary guarding, or rigidity. : Deferred. No Jaquez. EXTREMITIES: Non-edematous and not cyanotic. No clubbing. Good capillary refill. SKIN: No skin breakdown. Vital Signs (last 8hr) Date Time Temp Pulse Resp B/P (MAP) Pulse Ox O2 Delivery O2 Flow Rate FiO2 06/15/25 12:44 96 Room Air* 0 21 06/15/25 11:58 98.2 77 18 143/77 97 Nasal Cannula 3.0 06/15/25 09:31 77 18 21 78 19 32 06/15/25 08:01 98.1 84 18 151/83 95 Nasal Cannula 4.0 LABS: Laboratory: Test 06/15/25 11:11 06/15/25 04:11 06/14/25 09:48 06/14/25 04:36 Range/Units Whole Blood Glucose 92 70-110 MG/DL White Blood Count 5.1 4.8-10.8 K/uL Red Blood Count 3.43 L 4.00-5.50 MIL/uL Hemoglobin 10.8 L 12.0-16.0 g/dL Hematocrit 33.3 L 36-48 % Mean Corpuscular Volume 97.1 79-99 fL Mean Corpuscular Hemoglobin 31.5 27.0-33.0 pg Mean Corpuscular Hemoglobin Concent 32.4 32.0-36.0 g/dL Red Cell Distribution Width 13.7 11.0-15.5 % Platelet Count 104 L 130-400 K/uL Mean Platelet Volume 11.0 H 7.5-10.5 fL Immature Granulocyte % (Auto) 0.8 0-1 % Neutrophils (%) (Auto) 75.2 40.0-77.0 % Lymphocytes (%) (Auto) 14.8 L 21.0-51.0 % Monocytes (%) (Auto) 5.1 3.0-13.0 % Eosinophils (%) (Auto) 3.7 0.0-8.0 % Basophils (%) (Auto) 0.4 0.0-5.0 % Neutrophils # (Auto) 3.9 1.8-7.7 K/uL Lymphocytes # (Auto) 0.8 L 1.0-4.8 K/uL Monocytes # (Auto) 0.3 0.1-1.0 K/uL Eosinophils # (Auto) 0.19 0.00-0.70 K/uL Basophils # (Auto) 0.02 0.00-0.20 K/uL Absolute Immature Granulocyte (auto 0.04 0-1 K/uL Nucleated Red Blood Cells 0.0 0.0-0.19 % Sodium Level 139 136-145 mmol/L Potassium Level 3.8 3.5-5.1 mmol/L Chloride Level 98 L 101-111 mmol/L Carbon Dioxide Level 30 21-32 mmol/L Blood Urea Nitrogen 33 H 7-18 mg/dL Creatinine 4.6 H 0.5-1.0 mg/dL Glomerular Filtration Rate Calc 9 >90 mL/min Random Glucose 89 70-105 mg/dL Total Calcium 8.7 8.5-10.1 mg/dL Total Bilirubin 0.8 0.2-1.0 mg/dL Aspartate Amino Transf (AST/SGOT) 20 10-37 U/L Alanine Aminotransferase (ALT/SGPT) 22 12-78 U/L Alkaline Phosphatase 65 50-136 U/L Total Protein 6.5 6.0-8.3 g/dL Albumin 3.0 L 3.5-5.0 g/dL Hepatitis B Surface Antigen. Non-Reactive Nonreactive Hepatitis B Surface Antibody. Negative L Reactive Hepatitis B Core Total Antibody. Non-Reactive Nonreactive Hepatitis C Antibody Non-Reactive Nonreactive Phosphorus Level 5.8 H 2.5-4.9 mg/dL Magnesium Level 2.10 1.80-2.40 mg/dL B-Type Natriuretic Peptide 4560 H 0-100 pg/mL Current Medications Medications (Trade) Dose Ordered Sig/Mg Route PRN Reason Start Time Stop Time Status Last Admin Dose Admin Acetaminophen (TYLenol 325MG TAB) 650 mg Q4H PRN PO MILD PAIN (1-3) 06/12/25 20:00 07/12/25 19:59 Acetaminophen (TYLenol 325MG TAB) 650 mg Q6H PRN PO TEMPERATURE GREATER THAN 101.5 06/12/25 20:00 07/12/25 19:59 Apixaban (EliquIS 2.5 mg) 2.5 mg BID PO 06/13/25 11:00 07/13/25 10:59 06/15/25 09:02 2.5 MG Atorvastatin Calcium (LIPItor 20MG) 20 mg HS PO 06/12/25 21:00 07/12/25 20:59 06/14/25 21:52 20 MG Ergocalciferol (Drisdol) 50,000 unit QWEEK PO 06/20/25 09:00 07/20/25 08:59 Famotidine (Pepcid 20mg Tab) 20 mg Q48H PO 06/12/25 20:00 07/12/25 19:59 06/14/25 21:52 20 MG Furosemide (LASix 20MG VIAL) 20 mg DAILY IV 06/13/25 09:00 06/13/25 15:08 DC 06/13/25 09:11 20 MG Gabapentin (NEURontin 100 mg CAP) 100 mg BID PO 06/13/25 21:00 07/13/25 20:59 06/15/25 09:01 100 MG Guaifenesin/ Dextromethorphan (RobiTUSSin DM 200/20MG 10ML) 10 ml Q4H PRN PO COUGH 06/12/25 20:00 07/12/25 19:59 06/14/25 22:05 10 ML Levothyroxine Sodium (SYNTHroid 75MCG TAB) 75 mcg SYN PO 06/13/25 06:30 07/13/25 06:29 06/15/25 07:37 75 MCG Metoprolol Succinate (TopROL XL) 25 mg DAILY PO 06/14/25 09:00 06/13/25 13:12 DC Metoprolol Tartrate (loprESSOR) 12.5 mg BID PO 06/12/25 21:00 06/13/25 10:46 DC 06/13/25 09:11 12.5 MG Miscellaneous Medication (Levothyroxine Sodium (Levothyroxine)) 75 mcg ACBKFST PO 06/13/25 07:30 06/12/25 20:11 DC Nitroglycerin (Nitrostat) 0.4 mg PROTOCOL PRN SL CHEST PAIN 06/12/25 20:00 07/12/25 19:59 Ondansetron HCl (zoFRAN 4MG INJ) 4 mg Q6H PRN IV NAUSEA/VOMITING 06/12/25 20:00 07/12/25 19:59 Sacubitril/ Valsartan (Entresto 24 Mg-26 Mg Tablet) 0.5 each BID PO 06/12/25 21:00 06/13/25 13:12 DC 06/13/25 09:11 0.5 EACH Sacubitril/ Valsartan (Entresto 24 Mg-26 Mg Tablet) 1 each BID PO 06/15/25 09:00 07/15/25 08:59 06/15/25 09:01 1 EACH Vitamin B Complex/ Vit C/Folic Acid (Nephrovite Tablet) 1 cap DAILY PO 06/14/25 09:00 07/14/25 08:59 06/15/25 09:01 1 [facility] / RADIOLOGY: [place] [id number] [place] [address] IMAGING REPORT Signed PATIENT: RAGHU PERKINS MR#: [id number] : 1940 SEX: F AGE: 84 LOCATION: [facility] ORDER 05 STATUS: REG ER REPORT#: [id number] SERVICE 04 REASON: PALPITATION ORDERING PHYSICIAN: JOSE G KWON NP PROCEDURE: CXR1VW - CHEST 1VW EXAM: XR Chest, 1 View. CLINICAL HISTORY: 84-year-old female with palpitation. COMPARISON: XR Chest 04/26/25 07:26 FINDINGS: LUNGS: Trace atelectasis/infiltrate. Mild pulmonary congestion suggesting mild congestive heart failure. PLEURAL SPACES: Small bilateral pleural effusions. No pneumothorax. HEART: Moderate cardiomegaly. Left side pacemaker. BONES: No acute osseous abnormality. LINES AND TUBES: Right internal jugular dialysis catheter. IMPRESSION: 1. Mild pulmonary congestion and small bilateral pleural effusions, suggesting mild congestive heart failure. 2. Moderate cardiomegaly. 3. Left side pacemaker and right internal jugular dialysis catheter in place. 4. Changes overall similar compared to prior chest x-ray 07:26 04/26/25. /[place] DICTATED BY: NURIA IRWIN MD DATE: 06/12/251951 ELECTRONICALLY SIGNED BY: NURIA IRWIN MD DATE: 06/12/251951 ASSESSMENT: Acute on chronic combined systolic and diastolic heart failure, POA Chronic elevated troponin in the setting of acute CHF POA Paroxysmal atrial fibrillation, POA. Acute thrombocytopenia POA Chronic anemia due to CKD POA End-stage renal disease on hemodialysis POA Cardiac pacemaker /AICD status POA Hypothyroidism POA Hyperlipidemia POA Diabetes POA PLAN: Acute on chronic combined systolic and diastolic heart failure, POA * Chest x-ray demonstrated small bilateral pleural effusions with pulmonary vascular congestion * BNP > 5000, yesterday it was 4560. Cardiology was consulted. * Elevated Troponin of 158 and 183, and 167 * Was on GDMT: Entresto 24-26 mg, 0.5 tablets b.i.d. and transition from Metoprolol tartrate 12.5 mg b.i.d. to Toprol 25mg daily. But based on cardiology recommendations. They stopped her metoprolol and entresto due to hypotension during dialysis and they are going to assess her need for midodrine during dialysis tomorrow with omitting both BP meds. * Lasix 20 mg was stopped. * LVEF of 20 25% with stage III diastolic dysfunction via 2D echo on 04/29/2025. * Normal Lexiscan stress test on 08/26/2023 * Recommend fluid removal via hemodialysis. Chronic elevated troponin in the setting of acute CHF * Troponin trends 158>183>167 on 06/13/25. * Will monitor and order labs tomorrow. Paroxysmal atrial fibrillation * Telemetry currently demonstrating V pacing HR in 70's * Resume Eliquis 2.5mg bid and Toprol 25mg daily Acute thrombocytopenia POA * Thrombocytes trend - 91>90>100>104. * Will monitor and order labs tomorrow. Chronic anemia due to CKD POA * Hemoglobin trend - 11.0>11.1>10.7>10.8 * Will monitor and order labs tomorrow. End-stage renal disease on hemodialysis POA * Nephrology was consulted. * Patient scheduled for hemodialysis on Thursday, Thursday, Thursday. * Will continue hemodialysis as scheduled. She underwent her scheduled dialysis of Thursday today. 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 GI prophylaxis: famotidine 20 mg p.o. q.48h DVT prophylaxis: SCD was placed. ATTESTATION BY PHYSICIAN I have seen and examined the patient. I reviewed the documentation, medical decision making, and treatment plan as noted by the resident provider above. I agree with the findings and plan of care. MONROE STEELE MD, SHAJI MD Jun 15, 2025 14:31
[2025-06-16] VITALS (19 sets, daily range): BP systolic 126–151; BP diastolic 61–87; PULSE 75–96; RESP 16–20; TEMP 97.9–99; O2SAT 98
[2025-06-16 04:59] LABS: IMMATURE GRANULOCYTE ABSOLUTE 0.02 K/uL (0-1); NUCLEATED RED BLOOD CELLS 0.0 % (0.0-0.19); PLATELET COUNT (AUTO) 126 K/uL (130-400); RED BLOOD CELL COUNT(AUTO) 3.49 MIL/uL (4.00-5.50); RED CELL DISTRIBUTION WIDTH 13.6 % (11.0-15.5); WHITE BLOOD COUNT (AUTO) 6.3 K/uL (4.8-10.8)
[2025-06-16 05:05] LABS: CREATININE 5.7 mg/dL (0.5-1.0); GLOMERULAR FILTR. RATE CALC 7.0 mL/min (>90); GLUCOSE,RANDOM 97.0 mg/dL (70-105); SODIUM SERUM 137.0 mmol/L (136-145); UREA NITROGEN, BLOOD 48.0 mg/dL (7-18)
--- NOTE | 2025-06-16 07:15 | PN ---
NEPHROLOGY PROGRESS NOTE Date of Service: Jun 16, 2025 Time of Service: 07:14 SUBJECTIVE: [ Patient evaluated at bedside. No acute events reported by nursing. Routine dialysis session today. She is pending home oxygen for discharge. ] REVIEW OF SYSTEMS CONSTITUTIONAL: Denies fever, chills, or fatigue. HEAD/FACE: No signs of trauma. EENT: Denies eye pain, blurred vision, double vision, or light sensitivity. RESPIRATORY: Denies shortness of breath, cough, wheezing CARDIOVASCULAR: Denies chest pain, palpitation, syncope GASTROINTESTINAL/ABDOMINAL: Denies abdominal pain, constipation, diarrhea, nausea or vomiting GENITOURINARY: Denies dysuria or hematuria. MUSCULOSKELETAL: Denies joint pain, tenderness, or trauma. INTEGUMENTARY: Denies rash or itchiness NEUROLOGICAL/PSYCH: Denies anxiety, depression, heat or cold intolerance. PHYSICAL EXAM EYES: Anicteric. Pupils equal and reactive. HENT: No oral thrush seen, moist Oral mucosa NECK: Right IJ LUNGS: Good air movement, coarse sounds bilateral bases. CARDIOVASCULAR: Regular rate and rhythm. ABDOMEN: Soft, non tender, bowel sounds present, no organomegaly CENTRAL NERVOUS SYSTEM: Awake, alert, oriented x 3. No focal deficits. EXTREMITIES: No edema Vital Signs (last 8hr) Date Time Temp Pulse Resp B/P (MAP) Pulse Ox O2 Delivery O2 Flow Rate FiO2 06/16/25 04:00 98.2 85 20 150/84 92 Nasal Cannula 3.0 28 06/16/25 00:00 98.1 94 20 150/87 96 Nasal Cannula 3.0 28 LABS: Laboratory: Test 06/16/25 05:17 06/16/25 04:47 06/15/25 04:11 06/14/25 09:48 Range/Units Whole Blood Glucose 98 70-110 MG/DL White Blood Count 6.3 4.8-10.8 K/uL Red Blood Count 3.49 L 4.00-5.50 MIL/uL Hemoglobin 11.0 L 12.0-16.0 g/dL Hematocrit 33.8 L 36-48 % Mean Corpuscular Volume 96.8 79-99 fL Mean Corpuscular Hemoglobin 31.5 27.0-33.0 pg Mean Corpuscular Hemoglobin Concent 32.5 32.0-36.0 g/dL Red Cell Distribution Width 13.6 11.0-15.5 % Platelet Count 126 L 130-400 K/uL Mean Platelet Volume 10.2 7.5-10.5 fL Immature Granulocyte % (Auto) 0.3 0-1 % Neutrophils (%) (Auto) 78.3 H 40.0-77.0 % Lymphocytes (%) (Auto) 12.5 L 21.0-51.0 % Monocytes (%) (Auto) 4.8 3.0-13.0 % Eosinophils (%) (Auto) 3.8 0.0-8.0 % Basophils (%) (Auto) 0.3 0.0-5.0 % Neutrophils # (Auto) 4.9 1.8-7.7 K/uL Lymphocytes # (Auto) 0.8 L 1.0-4.8 K/uL Monocytes # (Auto) 0.3 0.1-1.0 K/uL Eosinophils # (Auto) 0.24 0.00-0.70 K/uL Basophils # (Auto) 0.02 0.00-0.20 K/uL Absolute Immature Granulocyte (auto 0.02 0-1 K/uL Nucleated Red Blood Cells 0.0 0.0-0.19 % Sodium Level 137 136-145 mmol/L Potassium Level 4.1 3.5-5.1 mmol/L Chloride Level 97 L 101-111 mmol/L Carbon Dioxide Level 30 21-32 mmol/L Blood Urea Nitrogen 48 H 7-18 mg/dL Creatinine 5.7 H 0.5-1.0 mg/dL Glomerular Filtration Rate Calc 7 >90 mL/min Random Glucose 97 70-105 mg/dL Total Calcium 8.9 8.5-10.1 mg/dL Total Bilirubin 0.8 0.2-1.0 mg/dL Aspartate Amino Transf (AST/SGOT) 20 10-37 U/L Alanine Aminotransferase (ALT/SGPT) 22 12-78 U/L Alkaline Phosphatase 65 50-136 U/L Total Protein 6.5 6.0-8.3 g/dL Albumin 3.0 L 3.5-5.0 g/dL Hepatitis B Surface Antigen. Non-Reactive Nonreactive Hepatitis B Surface Antibody. Negative L Reactive Hepatitis B Core Total Antibody. Non-Reactive Nonreactive Hepatitis C Antibody Non-Reactive Nonreactive DIAGNOSTICS / RADIOLOGY: [ ] ASSESSMENT: [ ESRD on hemodialysis Pulmonary congestion/small bilateral pleural effusions Acute on chronic CHF Elevated BNP greater than 5000 Hypertroponinemia 158 Anemia of chronic disease Hyperphosphatemia Hypoalbuminemia ] PLAN: [ 1. ESRD on hemodialysis- continue routine hemodialysis MWF, 300 blood flow rate is 600 dialysate flow rate, 1L UF as tolerated, fluid restriction of 1.2 L, renal dialysis diet. Patient uses midodrine for bp support. 2. Acute on chronic CHF/pulmonary congestion/bilateral effusions- proceed with UF; cardiology following. Patient uses midodrine for bp support. Recent medication adjustments by cardiology team. 3. Anemia- keep hemoglobin above 10. 4. Hyperphosphatemia- trend labs. 5. Hypoalbuminemia-trend labs. ] This visit was rendered and documented by Annalise Barbosa, MSN, CORN SHELLER OPERATOR, THROAT CUTTER-C and completed in collaboration with supervising physician Janneth Mast MD. ANNALISE BARBOSA Jun 16, 2025 07:15
--- NOTE | 2025-06-16 08:18 | PN ---
[facility] CARDIOLOGY PROGRESS NOTE Date Patient Seen: Jun 16, 2025 Time of Visit: 08:17 Problem List: AEHFREF Interval History: Patient seen prior to HD She overall feels well s/p 2 doses of Entresto and SBP in the 130s, not requiring midrodrine Home beta jim on hold. Physical Examination: GENERAL: [No acute distress.] HEAD: [Normal with no signs of head trauma.] NECK: [Normal carotid upstrokes without bruits.] LUNGS: no distress. on 2L O2 via NC. crackles bibasilarly.] HEART: [Normal rate and rhythm. Normal S1 and S2 without murmurs, gallop or rub.] VASC: [Peripheral pulses +2 bilaterally.] EXT: [No cyanosis or edema.] SKIN: [No rashes or lesions noted.] NEURO: [Awake, alert, and oriented x3. No focal sensory or strength deficits noted.] Laboratory: [ ] Hematology Labs: Test 06/16/25 04:47 Range/Units White Blood Count 6.3 4.8-10.8 K/uL Red Blood Count 3.49 L 4.00-5.50 MIL/uL Hemoglobin 11.0 L 12.0-16.0 g/dL Hematocrit 33.8 L 36-48 % Mean Corpuscular Volume 96.8 79-99 fL Mean Corpuscular Hemoglobin 31.5 27.0-33.0 pg Mean Corpuscular Hemoglobin Concent 32.5 32.0-36.0 g/dL Red Cell Distribution Width 13.6 11.0-15.5 % Platelet Count 126 L 130-400 K/uL Mean Platelet Volume 10.2 7.5-10.5 fL Immature Granulocyte % (Auto) 0.3 0-1 % Neutrophils (%) (Auto) 78.3 H 40.0-77.0 % Lymphocytes (%) (Auto) 12.5 L 21.0-51.0 % Monocytes (%) (Auto) 4.8 3.0-13.0 % Eosinophils (%) (Auto) 3.8 0.0-8.0 % Basophils (%) (Auto) 0.3 0.0-5.0 % Neutrophils # (Auto) 4.9 1.8-7.7 K/uL Lymphocytes # (Auto) 0.8 L 1.0-4.8 K/uL Monocytes # (Auto) 0.3 0.1-1.0 K/uL Eosinophils # (Auto) 0.24 0.00-0.70 K/uL Basophils # (Auto) 0.02 0.00-0.20 K/uL Absolute Immature Granulocyte (auto 0.02 0-1 K/uL Nucleated Red Blood Cells 0.0 0.0-0.19 % Chemistry Labs: Test 06/16/25 05:17 06/16/25 04:47 06/15/25 04:11 Range/Units Whole Blood Glucose 98 70-110 MG/DL Sodium Level 137 136-145 mmol/L Potassium Level 4.1 3.5-5.1 mmol/L Chloride Level 97 L 101-111 mmol/L Carbon Dioxide Level 30 21-32 mmol/L Blood Urea Nitrogen 48 H 7-18 mg/dL Creatinine 5.7 H 0.5-1.0 mg/dL Glomerular Filtration Rate Calc 7 >90 mL/min Random Glucose 97 70-105 mg/dL Total Calcium 8.9 8.5-10.1 mg/dL Total Bilirubin 0.8 0.2-1.0 mg/dL Aspartate Amino Transf (AST/SGOT) 20 10-37 U/L Alanine Aminotransferase (ALT/SGPT) 22 12-78 U/L Alkaline Phosphatase 65 50-136 U/L Total Protein 6.5 6.0-8.3 g/dL Albumin 3.0 L 3.5-5.0 g/dL Impression and Plan: 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 ESRD on MWF HD left heart catheterization 05/02/2025 which showed normal coronary arteries complete heart block status post dual-chamber pacemaker insertion 01/05/2019, paroxysmal atrial fibrillation, hypertension, hypothyroidism, interstitial fibrosis Diuresis per HD She makes minimal urine so IV diuretics may be not helpful Resumed her Entresto. Her BP appears to be tolerating. Will see how she does during HD today, if midodrine or albumin is needed. May be able to tolerate low dose Entresto without requiring use of midodrine on HD days. Would continue to hold her beta jim. CLAIRE MCDANIEL DO Jun 16, 2025 08:18
[2025-06-16] MEDS: 0.9%NACL 1000ML 1,000 ML IV SCH (09:12)
--- NOTE | 2025-06-16 11:30 | NUR ---
CALLED INTO ROOM, PT CURRENTLY ON DIALYSIS TREATMENT. PT DIFFICULT TO AROUSE. DR. STEELE HERE AND SALINE BOLUS GIVEN BY CLERICAL INVESTIGATOR PATRICIA. ALBUMIN ORDERED 25MG AND MIDODRINE 25G. POST 5 MIN SALINE INFUSION, BP CURRENTLY 144/79. PT CURRENTLY NOW AWAKE AND ALERT. HEMODIALYSIS TREATMENT ABORTED AT THIS TIME.
[2025-06-16] MEDS: ALBUMIN HUMAN 25% 100 ML IV SCH (11:42)
--- NOTE | 2025-06-16 11:45 | NUR ---
INFUSION OF 25G OF ALBUMIN GIVEN AT THIS TIME. BP CONTINUE 140/70
--- NOTE | 2025-06-16 11:56 | NUR ---
DR. AQUINO NOTIFIED OF EPISODE OF HYPOTENSION DURING HEMODIALYSIS WITH NEW ORDERED RECEIVED FOR FUTURE HEMODIALYSIS PREMEDICATION TREATMENT AND HOLD ON ENTRESTRO MEDICATION ON HEMODIALYSIS DAYS NO METOPROLOL
--- NOTE | 2025-06-16 15:32 | PN ---
[facility] PROGRESS NOTE Date of Service: Jun 16, 2025 Time of Service: 15:22 HISTORY OF PRESENT ILLNESS: This is a an 84-year-old female with past medical history of hyperlipidemia, hypothyroidism, CHF with AICD/ PPM , AFib on Eliquis, diabetes, hypertension and end-stage renal disease on hemodialysis Thursday,who presents to the ED via ambulance for complaints of shortness of breath with some chest pressure during hemodialysis treatment.Patient reports she started having palpitation and shortness of breath last night and symptoms went away on its own and she woke up today feeling fine and had to get up early she said for her scheduled dialysis.Patient reports she usually get dialyzed for 3.5 hours but today she was only told that she missed 1 more hour because it was stopped because she was having palpitation and shortness of breath during the treatment and was transferred here in the ER.Patient reports she was recently admitted in this facility 7 weeks ago for a PPM battery exchanged and she had similar symptoms from previous admission so she decided to come and be evaluated.On examination,patient is awake,alert and coherent.Patient denies fever,chest pain,palpitation and shortness of breath,edema,nausea and vomiting.Patient reports she never had chest pain only palpitation she said.Patient also mentioned she used to have CPAP many years ago but since it was recalled she never get a new one she said. Latest vital signs temperature 98.1, heart rate 79, blood pressure 144/78 saturation 99% on 2 L. labs: Hemoglobin 11, hematocrit 33, platelet count 91. Chloride 97, CO2 31, BUN 34, creatinine 4, GFR 11 BNP 4980, troponin 158. SARS COVID negative. EKG result revealed sinus rhythm heart rate 84 with left atrial enlargement chronic changes in anterolateral leads. Chest x-ray result revealed mild pulmonary congestion and small bilateral pleural effusions suggesting mild congestive heart failure. Moderate cardiomegaly. Left side pacemaker and right internal jugular dialysis catheter in place changes overall similar compared to prior chest x-ray. SUBJECTIVE: 06/13/2025: Patient was seen and examined in room 431. Patients feels better today. Patient denies shortness of breath since she was put on nasal cannula. Patient mentioned she used to have CPAP many years ago but since it was recalled she never get a new one and thinks that that was the reason for her worsening shortness of breath. Patient denies any fever, chills, chest pain, pedal edema, Orthopnea, palpitations today. Vitals today- Temperature-97.9, Pulse-76, Respiratory rate-20, Blood pressure-133/63. Spo2-96. Troponin today - 183>167. 06/14/2025: Patient was seen and examined in room 431. Patients feels better today. Patient was undergoing dialysis. During dialysis patient blood pressure was in 130s/90s to 140s/90s. Patient denies any fever, chills, chest pain, pedal edema, Orthopnea, palpitations today. Patient denies any lightheadedness. Vitals today- Temperature-97.9, Pulse-81, Respiratory rate-16, Blood pressure-149/79. Spo2-97. Troponin on 06/13/25 - 183>167. BNP today- 4560 06/15/25: Patient was seen and examined in room 431. Patients feels better today. Patient denies shortness of breath since she was put on nasal cannula. Patient denies any fever, chills, chest pain, pedal edema, Orthopnea, palpitations today. Vitals today- Temperature-98.2, Pulse-77, Respiratory rate- 18, Blood pressure-143/77. Spo2-96. Scheduled for Dialysis tomorrow. 06/16/25: Patient was seen and examined in room 431. Patient was undergoing her scheduled dialysis today. During dialysis initially the blood pressure was maintained in 130s/80s, later the blood pressure was not recordable and the patient collapsed, NS 250 ml bolus and 25% 1 bag of albumin was administered, later the blood pressure was recovered to 140s/80s. she was pending home oxygen for discharge but we will monitor for another day and plan on discharge. REVIEW OF SYSTEMS CONSTITUTIONAL: Denies fevers, chills, or night sweats. No unintentional weight loss reported. NEUROLOGICAL: Denies headache, amaurosis fugax, motor weakness, sensory deficit, vertigo/spinning sensation, gait abnormalities, or tremors. ENT: No hearing loss, otalgia, otorrhea, rhinitis, rhinorrhea, hoarseness, or sore throat. CARDIOVASCULAR: Palpitation Denies any exertional angina, dyspnea on exertion, orthopnea, paroxysmal nocturnal dyspnea,life-threatening arrhythmias, claudication. PULMONARY: Shortness of breaths Denies cough, phlegm/sputum, hemoptysis, pleuritic chest pain. SLEEP: Denies morning headaches, daytime somnolence or napping. Denies difficulty falling asleep, staying asleep, waking from sleep. Denies knowledge of snoring. GASTROINTESTINAL: Denies any type of dysphagia to either liquids or solids. Denies nausea, vomiting, pyrosis, early satiety, abdominal pain, diarrhea, constipation, or changes in stool consistency or caliber. Denies coffee-ground emesis, hematemesis, hematochezia, or melanotic stools. GENITOURINARY: Denies frequency, urgency, nocturia, hematuria or incontinence (Storage/Irritative symptoms.) Low urinary stream, straining to void, urinary intermittency or hesitancy, splitting of the voiding stream, terminal dribbling. ENDOCRINOLOGIC: Denies polyuria, polydipsia, polyphagia or heat/cold intolerances. HEMATOLOGIC: Denies thrombophilia/previous clots, or coagulopathy/bleeding disorders. ONCOLOGIC: Denies personal history of malignancy. DERMATOLOGIC: Denies rashes or pruritus. PSYCHIATRIC: Denies any suicidal or homicidal ideation. Denies hallucinations. PHYSICAL EXAM GENERAL APPEARANCE: The patient is awake, alert, and oriented, in no acute cardiopulmonary distress. NEUROLOGICAL: Cranial nerves II-XII grossly intact. Motor is 5/5 in bilateral upper and lower extremities proximal to distal. No sensory deficits. HEENT: Face is symmetric. Pupils are equal and reactive. Extraocular movements are intact. NECK: Supple. No JVD. No thyromegaly. No submental, submandibular, pre-/postauricular, occipital or supraclavicular lymphadenopathy. CHEST: Normal chest expansion. No Telemetry. LUNGS: Absence of any rales, rhonchi or any wheezing. CARDIOVASCULAR: Regular. S1 and S2 normal. No appreciable rubs, murmurs or gallops. ABDOMEN: Soft, nontender, and nondistended. There is no rebound, voluntary guarding, or rigidity. : Deferred. No Jaquez. EXTREMITIES: Non-edematous and not cyanotic. No clubbing. Good capillary refill. SKIN: No skin breakdown. Vital Signs (last 8hr) Date Time Temp Pulse Resp B/P (MAP) Pulse Ox O2 Delivery O2 Flow Rate FiO2 06/16/25 12:00 98.2 82 18 126/61 98 Nasal Cannula 2.0 24 06/16/25 11:25 97.9 79 18 147/77 Nasal Cannula 3.0 06/16/25 11:15 79 16 148/80 Nasal Cannula 3.0 06/16/25 11:00 75 16 151/84 Nasal Cannula 3.0 06/16/25 10:45 77 16 150/79 Nasal Cannula 3.0 06/16/25 10:30 79 16 147/81 Nasal Cannula 3.0 06/16/25 10:15 80 16 147/84 Nasal Cannula 3.0 06/16/25 10:00 79 16 140/78 Nasal Cannula 3.0 06/16/25 09:45 86 16 134/72 Nasal Cannula 3.0 06/16/25 09:30 87 16 137/73 Nasal Cannula 3.0 06/16/25 09:15 82 16 134/69 Nasal Cannula 3.0 06/16/25 08:50 98.1 83 16 138/72 Nasal Cannula 3.0 06/16/25 08:35 98.1 87 16 133/65 Nasal Cannula 3.0 06/16/25 08:00 98.1 86 18 135/74 97 Nasal Cannula 2.0 24 LABS: Laboratory: Test 06/16/25 11:48 06/16/25 04:47 06/15/25 04:11 Range/Units Whole Blood Glucose 104 70-110 MG/DL White Blood Count 6.3 4.8-10.8 K/uL Red Blood Count 3.49 L 4.00-5.50 MIL/uL Hemoglobin 11.0 L 12.0-16.0 g/dL Hematocrit 33.8 L 36-48 % Mean Corpuscular Volume 96.8 79-99 fL Mean Corpuscular Hemoglobin 31.5 27.0-33.0 pg Mean Corpuscular Hemoglobin Concent 32.5 32.0-36.0 g/dL Red Cell Distribution Width 13.6 11.0-15.5 % Platelet Count 126 L 130-400 K/uL Mean Platelet Volume 10.2 7.5-10.5 fL Immature Granulocyte % (Auto) 0.3 0-1 % Neutrophils (%) (Auto) 78.3 H 40.0-77.0 % Lymphocytes (%) (Auto) 12.5 L 21.0-51.0 % Monocytes (%) (Auto) 4.8 3.0-13.0 % Eosinophils (%) (Auto) 3.8 0.0-8.0 % Basophils (%) (Auto) 0.3 0.0-5.0 % Neutrophils # (Auto) 4.9 1.8-7.7 K/uL Lymphocytes # (Auto) 0.8 L 1.0-4.8 K/uL Monocytes # (Auto) 0.3 0.1-1.0 K/uL Eosinophils # (Auto) 0.24 0.00-0.70 K/uL Basophils # (Auto) 0.02 0.00-0.20 K/uL Absolute Immature Granulocyte (auto 0.02 0-1 K/uL Nucleated Red Blood Cells 0.0 0.0-0.19 % Sodium Level 137 136-145 mmol/L Potassium Level 4.1 3.5-5.1 mmol/L Chloride Level 97 L 101-111 mmol/L Carbon Dioxide Level 30 21-32 mmol/L Blood Urea Nitrogen 48 H 7-18 mg/dL Creatinine 5.7 H 0.5-1.0 mg/dL Glomerular Filtration Rate Calc 7 >90 mL/min Random Glucose 97 70-105 mg/dL Total Calcium 8.9 8.5-10.1 mg/dL Total Bilirubin 0.8 0.2-1.0 mg/dL Aspartate Amino Transf (AST/SGOT) 20 10-37 U/L Alanine Aminotransferase (ALT/SGPT) 22 12-78 U/L Alkaline Phosphatase 65 50-136 U/L Total Protein 6.5 6.0-8.3 g/dL Albumin 3.0 L 3.5-5.0 g/dL Current Medications Medications (Trade) Dose Ordered Sig/Mg Route PRN Reason Start Time Stop Time Status Last Admin Dose Admin Acetaminophen (TYLenol 325MG TAB) 650 mg Q4H PRN PO MILD PAIN (1-3) 06/12/25 20:00 07/12/25 19:59 Acetaminophen (TYLenol 325MG TAB) 650 mg Q6H PRN PO TEMPERATURE GREATER THAN 101.5 06/12/25 20:00 07/12/25 19:59 Albumin Human 100 ml @ 0 mls/hr AD IV 06/16/25 11:30 06/17/25 11:29 06/16/25 11:42 25 MLS/HR Apixaban (EliquIS 2.5 mg) 2.5 mg BID PO 06/13/25 11:00 07/13/25 10:59 06/16/25 13:17 2.5 MG Atorvastatin Calcium (LIPItor 20MG) 20 mg HS PO 06/12/25 21:00 07/12/25 20:59 06/15/25 22:40 20 MG Ergocalciferol (Drisdol) 50,000 unit QWEEK PO 06/20/25 09:00 07/20/25 08:59 Famotidine (Pepcid 20mg Tab) 20 mg Q48H PO 06/12/25 20:00 07/12/25 19:59 06/14/25 21:52 20 MG Furosemide (LASix 20MG VIAL) 20 mg DAILY IV 06/13/25 09:00 06/13/25 15:08 DC 06/13/25 09:11 20 MG Gabapentin (NEURontin 100 mg CAP) 100 mg BID PO 06/13/25 21:00 07/13/25 20:59 06/16/25 13:17 100 MG Guaifenesin/ Dextromethorphan (RobiTUSSin DM 200/20MG 10ML) 10 ml Q4H PRN PO COUGH 06/12/25 20:00 07/12/25 19:59 06/15/25 22:48 10 ML Heparin Sodium (Porcine) (HEParin 5,000 UNIT VIAL) 10,000 unit AD IRRIG 06/16/25 09:30 07/16/25 09:29 06/16/25 11:47 10,000 UNIT Levothyroxine Sodium (SYNTHroid 75MCG TAB) 75 mcg SYN PO 06/13/25 06:30 07/13/25 06:29 06/16/25 07:12 75 MCG Metoprolol Succinate (TopROL XL) 25 mg DAILY PO 06/14/25 09:00 06/13/25 13:12 DC Metoprolol Tartrate (loprESSOR) 12.5 mg BID PO 06/12/25 21:00 06/13/25 10:46 DC 06/13/25 09:11 12.5 MG Miscellaneous Medication (Levothyroxine Sodium (Levothyroxine)) 75 mcg ACBKFST PO 06/13/25 07:30 06/12/25 20:11 DC Nitroglycerin (Nitrostat) 0.4 mg PROTOCOL PRN SL CHEST PAIN 06/12/25 20:00 07/12/25 19:59 Ondansetron HCl (zoFRAN 4MG INJ) 4 mg Q6H PRN IV NAUSEA/VOMITING 06/12/25 20:00 07/12/25 19:59 Sacubitril/ Valsartan (Entresto 24 Mg-26 Mg Tablet) 0.5 each BID PO 06/12/25 21:00 06/13/25 13:12 DC 06/13/25 09:11 0.5 EACH Sacubitril/ Valsartan (Entresto 24 Mg-26 Mg Tablet) 1 each BID PO 06/15/25 09:00 07/15/25 08:59 06/15/25 22:40 1 EACH Sodium Chloride 1,000 ml @ 0 mls/hr ONCE IV 06/16/25 09:30 07/16/25 09:29 06/16/25 09:12 100 MLS/HR Vitamin B Complex/ Vit C/Folic Acid (Nephrovite Tablet) 1 cap DAILY PO 06/14/25 09:00 07/14/25 08:59 06/16/25 13:17 1 [facility] RADIOLOGY: [place] [address] IMAGING REPORT Signed PATIENT: RAGHU PERKINS MR#: [id number] : 1940 SEX: F AGE: 84 LOCATION: [facility] ORDER 05 STATUS: REG ER REPORT#: [id number] SERVICE 04 REASON: PALPITATION ORDERING PHYSICIAN: JOSE G KWON NP PROCEDURE: CXR1VW - CHEST 1VW EXAM: XR Chest, 1 View. CLINICAL HISTORY: 84-year-old female with palpitation. COMPARISON: XR Chest 04/26/25 07:26 FINDINGS: LUNGS: Trace atelectasis/infiltrate. Mild pulmonary congestion suggesting mild congestive heart failure. PLEURAL SPACES: Small bilateral pleural effusions. No pneumothorax. HEART: Moderate cardiomegaly. Left side pacemaker. BONES: No acute osseous abnormality. LINES AND TUBES: Right internal jugular dialysis catheter. IMPRESSION: 1. Mild pulmonary congestion and small bilateral pleural effusions, suggesting mild congestive heart failure. 2. Moderate cardiomegaly. 3. Left side pacemaker and right internal jugular dialysis catheter in place. 4. Changes overall similar compared to prior chest x-ray 07:26 04/26/25. /Russell DICTATED BY: NURIA IRWIN MD DATE: 06/12/251951 ELECTRONICALLY SIGNED BY: NURIA IRWIN MD DATE: 06/12/251951 ASSESSMENT: Acute on chronic combined systolic and diastolic heart failure, POA Chronic elevated troponin in the setting of acute CHF POA Paroxysmal atrial fibrillation, POA. Acute thrombocytopenia POA Chronic anemia due to CKD POA End-stage renal disease on hemodialysis POA Cardiac pacemaker /AICD status POA Hypothyroidism POA Hyperlipidemia POA Diabetes POA PLAN: Acute on chronic combined systolic and diastolic heart failure, POA * Chest x-ray demonstrated small bilateral pleural effusions with pulmonary vascular congestion * BNP > 5000, yesterday it was 4560. Cardiology was consulted. * Elevated Troponin of 158 and 183, and 167 * Was on GDMT: Entresto 24-26 mg, 0.5 tablets b.i.d. and transition from Metoprolol tartrate 12.5 mg b.i.d. to Toprol 25mg daily. But based on cardiology recommendations. They stopped her metoprolol and entresto due to hypotension during dialysis on Thursday and they assessed her need for midodrine during dialysis with omitting both BP Meds. * During dialysis today initially the blood pressure was maintained in 130s/80s, later the blood pressure was not recordable and the patient collapsed, NS 250 ml bolus and 25% 1 bag of albumin was administered, later the blood pressure was recovered to 140s/80s. * Today cardiology recommended her to continue entresto and stop metoprolol, and on the days of dialysis hold entresto and take midodrine 5mg . * Lasix 20 mg was stopped, Metoprolol was discontinued. * LVEF of 20 25% with stage III diastolic dysfunction via 2D echo on 04/29/2025. * Normal Lexiscan stress test on 08/26/2023 * Recommend fluid removal via hemodialysis. Chronic elevated troponin in the setting of acute CHF * Troponin trends 158>183>167 on 06/13/25. * Will monitor and order labs tomorrow. Paroxysmal atrial fibrillation * Telemetry currently demonstrating V pacing HR in 70's * Resume Eliquis 2.5mg bid and Toprol 25mg daily Acute thrombocytopenia POA * Thrombocytes trend - 91>90>100>104. * Will monitor and order labs tomorrow. Chronic anemia due to CKD POA * Hemoglobin trend - 11.0>11.1>10.7>10.8>11.0. * Will monitor and order labs tomorrow. End-stage renal disease on hemodialysis POA * Nephrology was consulted. * Patient scheduled for hemodialysis on Thursday, Thursday, Thursday. * Will continue hemodialysis as scheduled. She underwent her scheduled dialysis of Thursday today. 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 GI prophylaxis: famotidine 20 mg p.o. q.48h DVT prophylaxis: SCD was placed. ATTESTATION BY PHYSICIAN I have seen and examined the patient. I reviewed the documentation, medical decision making, and treatment plan as noted by the resident physician above. I agree with the findings and plan of care. MONROE STEELE MD, SHAJI MD Jun 16, 2025 15:31
[2025-06-17] VITALS: BP 131/73; PULSE 102; RESP 20; TEMP 98.3
--- NOTE | 2025-06-17 01:39 | NUR ---
nurse note patient alert and oriented times 3. plan of care discussed with her and she verbalized understanding. patient has no pain tonight. her old iv on her right hand was removed (catheter tip intact) and I placed a 22 gauge on her right AC. Patient is having shortness of breath when she moves around in bed. She still has a weak cough. She has slept about 5 hours tonight. call light within reach, bed alarm on, 2 side rails up. will continue to monitor patient.
[2025-06-17 04:00] VITALS: BP 133/70; PULSE 78; RESP 18; TEMP 98.5
[2025-06-17 04:12] LABS: IMMATURE GRANULOCYTE ABSOLUTE 0.03 K/uL (0-1); NUCLEATED RED BLOOD CELLS 0.0 % (0.0-0.19); PLATELET COUNT (AUTO) 109 K/uL (130-400); RED BLOOD CELL COUNT(AUTO) 3.15 MIL/uL (4.00-5.50); RED CELL DISTRIBUTION WIDTH 13.8 % (11.0-15.5); WHITE BLOOD COUNT (AUTO) 6.7 K/uL (4.8-10.8)
[2025-06-17 04:30] LABS: CREATININE 5.2 mg/dL (0.5-1.0); GLOMERULAR FILTR. RATE CALC 8.0 mL/min (>90); GLUCOSE,RANDOM 98.0 mg/dL (70-105); SODIUM SERUM 138.0 mmol/L (136-145); UREA NITROGEN, BLOOD 39.0 mg/dL (7-18)
[2025-06-17 08:00] VITALS: BP 138/80; PULSE 87; RESP 18; TEMP 98.2
[2025-06-17 08:03] VITALS: O2SAT 96
[2025-06-17 12:00] VITALS: BP 138/78; PULSE 90; RESP 18; TEMP 98.4
[2025-06-17] MEDS ORDERED: SACU1TAB PO (16:26)
[2025-06-17] MEDS ORDERED: MIDO5TAB4 PO (16:26)
--- NOTE | 2025-06-17 16:30 | PN ---
[facility] PROGRESS NOTE Date of Service: Jun 17, 2025 Time of Service: 16:30 HISTORY OF PRESENT ILLNESS: This is a an 84-year-old female with past medical history of hyperlipidemia, hypothyroidism, CHF with AICD/ PPM , AFib on Eliquis, diabetes, hypertension and end-stage renal disease on hemodialysis Thursday,who presents to the ED via ambulance for complaints of shortness of breath with some chest pressure during hemodialysis treatment.Patient reports she started having palpitation and shortness of breath last night and symptoms went away on its own and she woke up today feeling fine and had to get up early she said for her scheduled dialysis.Patient reports she usually get dialyzed for 3.5 hours but today she was only told that she missed 1 more hour because it was stopped because she was having palpitation and shortness of breath during the treatment and was transferred here in the ER.Patient reports she was recently admitted in this facility 7 weeks ago for a PPM battery exchanged and she had similar symptoms from previous admission so she decided to come and be evaluated.On examination,patient is awake,alert and coherent.Patient denies fever,chest pain,palpitation and shortness of breath,edema,nausea and vomiting.Patient reports she never had chest pain only palpitation she said.Patient also mentioned she used to have CPAP many years ago but since it was recalled she never get a new one she said. Latest vital signs temperature 98.1, heart rate 79, blood pressure 144/78 saturation 99% on 2 L. labs: Hemoglobin 11, hematocrit 33, platelet count 91. Chloride 97, CO2 31, BUN 34, creatinine 4, GFR 11 BNP 4980, troponin 158. SARS COVID negative. EKG result revealed sinus rhythm heart rate 84 with left atrial enlargement chronic changes in anterolateral leads. Chest x-ray result revealed mild pulmonary congestion and small bilateral pleural effusions suggesting mild congestive heart failure. Moderate cardiomegaly. Left side pacemaker and right internal jugular dialysis catheter in place changes overall similar compared to prior chest x-ray. SUBJECTIVE: 06/13/2025: Patient was seen and examined in room 431. Patients feels better today. Patient denies shortness of breath since she was put on nasal cannula. Patient mentioned she used to have CPAP many years ago but since it was recalled she never get a new one and thinks that that was the reason for her worsening shortness of breath. Patient denies any fever, chills, chest pain, pedal edema, Orthopnea, palpitations today. Vitals today- Temperature-97.9, Pulse-76, Respiratory rate-20, Blood pressure-133/63. Spo2-96. Troponin today - 183>167. 06/14/2025: Patient was seen and examined in room 431. Patients feels better today. Patient was undergoing dialysis. During dialysis patient blood pressure was in 130s/90s to 140s/90s. Patient denies any fever, chills, chest pain, pedal edema, Orthopnea, palpitations today. Patient denies any lightheadedness. Vitals today- Temperature-97.9, Pulse-81, Respiratory rate-16, Blood pressure-149/79. Spo2-97. Troponin on 06/13/25 - 183>167. BNP today- 4560 06/15/25: Patient was seen and examined in room 431. Patients feels better today. Patient denies shortness of breath since she was put on nasal cannula. Patient denies any fever, chills, chest pain, pedal edema, Orthopnea, palpitations today. Vitals today- Temperature-98.2, Pulse-77, Respiratory rate- 18, Blood pressure-143/77. Spo2-96. Scheduled for Dialysis tomorrow. 06/16/25: Patient was seen and examined in room 431. Patient was undergoing her scheduled dialysis today. During dialysis initially the blood pressure was maintained in 130s/80s, later the blood pressure was not recordable and the patient collapsed, NS 250 ml bolus and 25% 1 bag of albumin was administered, later the blood pressure was recovered to 140s/80s. she was pending home oxygen for discharge but we will monitor for another day and plan on discharge. 06/17/2025 Patient is seen and examined at the bedside. Vitals blood pressure ranging in 130s to 140s/70s, SpO2 greater than 95% on 2 L nasal cannula, respiratory rate 18, pulse rate 70-90s. No acute events last night. She states that she feels well and has no complaints. She denies fever, chills, chest pain, palpitations, difficulty in breathing, nausea, vomiting, abdominal pain. Labs WBC 6.7, hemoglobin 10, glucose 115. Cardiology consult recommended observation for 1 more day, possible discharge tomorrow. REVIEW OF SYSTEMS CONSTITUTIONAL: Denies fevers, chills, or night sweats. No unintentional weight loss reported. NEUROLOGICAL: Denies headache motor weakness, sensory deficit, vertigo/spinning sensation, gait abnormalities, or tremors. ENT: No hearing loss, otalgia, otorrhea, rhinitis, rhinorrhea, hoarseness, or sore throat. CARDIOVASCULAR: Denies any exertional angina, dyspnea on exertion, orthopnea, paroxysmal nocturnal dyspnea,life-threatening arrhythmias, claudication. PULMONARY: Denies cough, phlegm/sputum, hemoptysis, pleuritic chest pain. SLEEP: Denies morning headaches, daytime somnolence or napping. Denies difficulty falling asleep, staying asleep, waking from sleep. Denies knowledge of snoring. GASTROINTESTINAL: Denies any type of dysphagia to either liquids or solids. Denies nausea, vomiting, pyrosis, early satiety, abdominal pain, diarrhea, constipation, or changes in stool consistency or caliber. GENITOURINARY: Denies frequency, urgency, nocturia HEMATOLOGIC: Denies thrombophilia/previous clots, or coagulopathy/bleeding di sorders. ONCOLOGIC: Denies personal history of malignancy. DERMATOLOGIC: Denies rashes or pruritus. PSYCHIATRIC: Denies any suicidal or homicidal ideation. Denies hallucinations. PHYSICAL EXAM GENERAL APPEARANCE: The patient is awake, alert, and oriented, in no acute cardiopulmonary distress. NEUROLOGICAL: Cranial nerves II-XII grossly intact. Motor is 5/5 in bilateral upper and lower extremities proximal to distal. No sensory deficits. HEENT: Face is symmetric. Pupils are equal and reactive. Extraocular movements are intact. NECK: Supple. No JVD. No thyromegaly. No submental, submandibular, pre- /postauricular, occipital or supraclavicular lymphadenopathy. CHEST: Normal chest expansion. No Telemetry. LUNGS: Absence of any rales, rhonchi or any wheezing. CARDIOVASCULAR: Regular. S1 and S2 normal. No appreciable rubs, murmurs or gallops. ABDOMEN: Soft, nontender, and nondistended. There is no rebound, voluntary guarding, or rigidity. : Deferred. No Jaquez. EXTREMITIES: Non-edematous and not cyanotic. No clubbing. Good capillary refill. SKIN: No skin breakdown. Vital Signs (last 8hr) Date Time Temp Pulse Resp B/P (MAP) Pulse Ox O2 Delivery O2 Flow Rate FiO2 06/17/25 12:00 98.4 90 18 138/78 97 Nasal Cannula 2.0 24 LABS: Laboratory: Test 06/17/25 11:43 06/17/25 03:42 Range/Units Whole Blood Glucose 109 70-110 MG/DL White Blood Count 6.7 4.8-10.8 K/uL Red Blood Count 3.15 L 4.00-5.50 MIL/uL Hemoglobin 10.0 L 12.0-16.0 g/dL Hematocrit 30.2 L 36-48 % Mean Corpuscular Volume 95.9 79-99 fL Mean Corpuscular Hemoglobin 31.7 27.0-33.0 pg Mean Corpuscular Hemoglobin Concent 33.1 32.0-36.0 g/dL Red Cell Distribution Width 13.8 11.0-15.5 % Platelet Count 109 L 130-400 K/uL Mean Platelet Volume 10.7 H 7.5-10.5 fL Immature Granulocyte % (Auto) 0.4 0-1 % Neutrophils (%) (Auto) 77.5 H 40.0-77.0 % Lymphocytes (%) (Auto) 13.9 L 21.0-51.0 % Monocytes (%) (Auto) 6.9 3.0-13.0 % Eosinophils (%) (Auto) 1.2 0.0-8.0 % Basophils (%) (Auto) 0.1 0.0-5.0 % Neutrophils # (Auto) 5.2 1.8-7.7 K/uL Lymphocytes # (Auto) 0.9 L 1.0-4.8 K/uL Monocytes # (Auto) 0.5 0.1-1.0 K/uL Eosinophils # (Auto) 0.08 0.00-0.70 K/uL Basophils # (Auto) 0.01 0.00-0.20 K/uL Absolute Immature Granulocyte (auto 0.03 0-1 K/uL Nucleated Red Blood Cells 0.0 0.0-0.19 % Sodium Level 138 136-145 mmol/L Potassium Level 4.0 3.5-5.1 mmol/L Chloride Level 97 L 101-111 mmol/L Carbon Dioxide Level 29 21-32 mmol/L Blood Urea Nitrogen 39 H 7-18 mg/dL Creatinine 5.2 H 0.5-1.0 mg/dL Glomerular Filtration Rate Calc 8 >90 mL/min Random Glucose 98 70-105 mg/dL Total Calcium 8.5 8.5-10.1 mg/dL Current Medications Medications (Trade) Dose Ordered Sig/Mg Route PRN Reason Start Time Stop Time Status Last Admin Dose Admin Acetaminophen (TYLenol 325MG TAB) 650 mg Q4H PRN PO MILD PAIN (1-3) 06/12/25 20:00 07/12/25 19:59 06/16/25 23:37 650 MG Acetaminophen (TYLenol 325MG TAB) 650 mg Q6H PRN PO TEMPERATURE GREATER THAN 101.5 06/12/25 20:00 07/12/25 19:59 Albumin Human 100 ml @ 0 mls/hr AD IV 06/16/25 11:30 06/17/25 11:29 DC 06/16/25 11:42 25 MLS/HR Apixaban (EliquIS 2.5 mg) 2.5 mg BID PO 06/13/25 11:00 07/13/25 10:59 06/17/25 08:52 2.5 MG Atorvastatin Calcium (LIPItor 20MG) 20 mg HS PO 06/12/25 21:00 07/12/25 20:59 06/16/25 20:38 20 MG Ergocalciferol (Drisdol) 50,000 unit QWEEK PO 06/20/25 09:00 07/20/25 08:59 Famotidine (Pepcid 20mg Tab) 20 mg Q48H PO 06/12/25 20:00 07/12/25 19:59 06/16/25 20:39 20 MG Furosemide (LASix 20MG VIAL) 20 mg DAILY IV 06/13/25 09:00 06/13/25 15:08 DC 06/13/25 09:11 20 MG Gabapentin (NEURontin 100 mg CAP) 100 mg BID PO 06/13/25 21:00 07/13/25 20:59 06/16/25 20:39 100 MG Guaifenesin/ Dextromethorphan (RobiTUSSin DM 200/20MG 10ML) 10 ml Q4H PRN PO COUGH 06/12/25 20:00 07/12/25 19:59 06/16/25 23:35 10 ML Heparin Sodium (Porcine) (HEParin 5,000 UNIT VIAL) 10,000 unit AD IRRIG 06/16/25 09:30 07/16/25 09:29 06/16/25 11:47 10,000 UNIT Levothyroxine Sodium (SYNTHroid 75MCG TAB) 75 mcg SYN PO 06/13/25 06:30 07/13/25 06:29 06/17/25 05:11 75 MCG Metoprolol Succinate (TopROL XL) 25 mg DAILY PO 06/14/25 09:00 06/13/25 13:12 DC Metoprolol Tartrate (loprESSOR) 12.5 mg BID PO 06/12/25 21:00 06/13/25 10:46 DC 06/13/25 09:11 12.5 MG Midodrine (PROAMatine 5 MG TABLET) 5 mg AM PO 06/17/25 09:00 07/17/25 08:59 Miscellaneous Medication (Levothyroxine Sodium (Levothyroxine)) 75 mcg ACBKFST PO 06/13/25 07:30 06/12/25 20:11 DC Nitroglycerin (Nitrostat) 0.4 mg PROTOCOL PRN SL CHEST PAIN 06/12/25 20:00 07/12/25 19:59 Ondansetron HCl (zoFRAN 4MG INJ) 4 mg Q6H PRN IV NAUSEA/VOMITING 06/12/25 20:00 07/12/25 19:59 Sacubitril/ Valsartan (Entresto 24 Mg-26 Mg Tablet) 0.5 each BID PO 06/12/25 21:00 06/13/25 13:12 DC 06/13/25 09:11 0.5 EACH Sacubitril/ Valsartan (Entresto 24 Mg-26 Mg Tablet) 1 each BID PO 06/15/25 09:00 07/15/25 08:59 06/17/25 08:52 1 EACH Sodium Chloride 1,000 ml @ 0 mls/hr ONCE IV 06/16/25 09:30 07/16/25 09:29 06/16/25 09:12 100 MLS/HR Vitamin B Complex/ Vit C/Folic Acid (Nephrovite Tablet) 1 cap DAILY PO 06/14/25 09:00 07/14/25 08:59 06/17/25 08:51 1 CAP DIAGNOSTICS / RADIOLOGY: [ ] ASSESSMENT: Acute on chronic combined systolic and diastolic heart failure, POA Chronic elevated troponin in the setting of acute CHF POA Paroxysmal atrial fibrillation, POA. Acute thrombocytopenia POA Chronic anemia due to CKD POA End-stage renal disease on hemodialysis POA Cardiac pacemaker /AICD status POA Hypothyroidism POA Hyperlipidemia POA Diabetes POA PLAN: Acute on chronic combined systolic and diastolic heart failure, POA * Chest x-ray on 06/12 demonstrated small bilateral pleural effusions with pulmonary vascular congestion * BNP > 5000 initially which improved to 4560 * Elevated Troponin of 158 and 183, and 167 * Was on GDMT: Entresto 24-26 mg, 0.5 tablets b.i.d. and Metoprolol tartrate 12.5 mg b.i.d. at home * Cardiology recommended to continue entresto and stop metoprolol, and to hold Entresto and take midodrine 5 mg p.o. on the days of dialysis [Thursday, Thursday, Thursday] given her recent hypotensive episode yesterday * LVEF of 20 25% with stage III diastolic dysfunction via 2D echo on 04/29/2025. * Normal Lexiscan stress test on 08/26/2023 * Cardiology Recommend fluid removal via hemodialysis. Chronic elevated troponin in the setting of acute CHF * Troponin trends 158>183>167 on 06/13/25. Paroxysmal atrial fibrillation * Telemetry currently demonstrating V pacing HR in 70's * Continue Eliquis 2.5mg bid * Metoprolol 12.5 mg b.i.d. is stopped given her hypotensive episodes according to cardiology recommendation Acute thrombocytopenia POA * Thrombocytes trend - 91>90>100>104 > 126 > 109 * Will monitor and order labs tomorrow. Chronic anemia due to CKD POA * Hemoglobin trend - 11.0>11.1>10.7>10.8>11.0. * Will monitor and order labs tomorrow. End-stage renal disease on hemodialysis POA * Nephrology was consulted. * Patient scheduled for hemodialysis on Thursday, Thursday, Thursday. * Will continue hemodialysis as scheduled. 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 GI prophylaxis: famotidine 20 mg p.o. q.48h DVT prophylaxis: SCD ATTESTATION BY PHYSICIAN I have seen and examined the patient. I reviewed the documentation, medical decision making, and treatment plan as noted by the resident physician above. I agree with the findings and plan of care. MONROE STEELE MD, PRIYANKA MD Jun 17, 2025 16:30
--- NOTE | 2025-06-17 16:45 | PN ---
[facility] PROGRESS NOTE Date Patient Seen: Jun 17, 2025 Time of Visit: 16:40 Interval History: The patient is doing well today. She is sitting up in bed eating. She denies dyspnea. She is still using oxygen however she has an oxygen canister that she uses at home which was in her room. She is requesting that her and her family member be taught how to use it. She has diuresed over 3 L since this admission. Her weight is down by 3 kg. Physical Examination: Neck: No JVD Lungs: Clear Heart: Regular with no murmurs Extremities: Without edema. Laboratory: [ ] Hematology Labs: Test 06/17/25 03:42 Range/Units White Blood Count 6.7 4.8-10.8 K/uL Red Blood Count 3.15 L 4.00-5.50 MIL/uL Hemoglobin 10.0 L 12.0-16.0 g/dL Hematocrit 30.2 L 36-48 % Mean Corpuscular Volume 95.9 79-99 fL Mean Corpuscular Hemoglobin 31.7 27.0-33.0 pg Mean Corpuscular Hemoglobin Concent 33.1 32.0-36.0 g/dL Red Cell Distribution Width 13.8 11.0-15.5 % Platelet Count 109 L 130-400 K/uL Mean Platelet Volume 10.7 H 7.5-10.5 fL Immature Granulocyte % (Auto) 0.4 0-1 % Neutrophils (%) (Auto) 77.5 H 40.0-77.0 % Lymphocytes (%) (Auto) 13.9 L 21.0-51.0 % Monocytes (%) (Auto) 6.9 3.0-13.0 % Eosinophils (%) (Auto) 1.2 0.0-8.0 % Basophils (%) (Auto) 0.1 0.0-5.0 % Neutrophils # (Auto) 5.2 1.8-7.7 K/uL Lymphocytes # (Auto) 0.9 L 1.0-4.8 K/uL Monocytes # (Auto) 0.5 0.1-1.0 K/uL Eosinophils # (Auto) 0.08 0.00-0.70 K/uL Basophils # (Auto) 0.01 0.00-0.20 K/uL Absolute Immature Granulocyte (auto 0.03 0-1 K/uL Nucleated Red Blood Cells 0.0 0.0-0.19 % Chemistry Labs: Test 06/17/25 16:31 06/17/25 03:42 Range/Units Whole Blood Glucose 115 H 70-110 MG/DL Sodium Level 138 136-145 mmol/L Potassium Level 4.0 3.5-5.1 mmol/L Chloride Level 97 L 101-111 mmol/L Carbon Dioxide Level 29 21-32 mmol/L Blood Urea Nitrogen 39 H 7-18 mg/dL Creatinine 5.2 H 0.5-1.0 mg/dL Glomerular Filtration Rate Calc 8 >90 mL/min Random Glucose 98 70-105 mg/dL Total Calcium 8.5 8.5-10.1 mg/dL Impression: 1. Acute on chronic systolic heart failure, well compensated 2. She is tolerating the addition of Entresto with normal blood pressures without the need for midodrine prior to hemodialysis. Plan: 1. The patient appears to be euvolemic at this point 2. She has minimal urine output so fluid balance is being adjusted during hemodialysis 3. Continue Entresto 4. Anticipate discharge in the next 24-48 hours. MATILDE PARKS MD Jun 17, 2025 16:45
[2025-06-17 20:00] VITALS: BP 135/72; PULSE 90; RESP 18; TEMP 98.5; O2SAT 95
[2025-06-18] VITALS: BP 134/71; PULSE 88; RESP 18; TEMP 98.3
[2025-06-18 04:09] VITALS: BP 120/59; PULSE 91; RESP 20; TEMP 98.4
[2025-06-18 04:40] LABS: NUCLEATED RED BLOOD CELLS 0.0 % (0.0-0.19); PLATELET COUNT (AUTO) 121.0 K/uL (130-400); RED BLOOD CELL COUNT(AUTO) 3.4 MIL/uL (4.00-5.50); RED CELL DISTRIBUTION WIDTH 13.7 % (11.0-15.5); WHITE BLOOD COUNT (AUTO) 7.2 K/uL (4.8-10.8)
[2025-06-18 04:56] LABS: CREATININE 6.5 mg/dL (0.5-1.0); GLOMERULAR FILTR. RATE CALC 6.0 mL/min (>90); GLUCOSE,RANDOM 95.0 mg/dL (70-105); SODIUM SERUM 136.0 mmol/L (136-145); UREA NITROGEN, BLOOD 59.0 mg/dL (7-18)
[2025-06-18 08:00] VITALS: BP 121/70; PULSE 86; RESP 18; TEMP 97.4
[2025-06-18 09:17] VITALS: O2SAT 94
[2025-06-18 12:00] VITALS: BP 128/66; PULSE 86; RESP 18; TEMP 98.1
--- NOTE | 2025-06-18 12:45 | PN ---
The patient continued to do well today. She is hemodynamically stable with good blood pressures and heart rate. She is tolerating Entresto. Plan: The patient can be discharged home today. She is pending home oxygen delivery. She needs to follow up with Dr. Holden at [facility]. Vitals/Labs Vital Signs Date Time Temp Pulse Resp B/P (MAP) Pulse Ox O2 Delivery O2 Flow Rate FiO2 06/18/25 12:00 98.1 86 18 128/66 99 Nasal Cannula 3.0 06/18/25 09:17 32 Laboratory Tests 06/18/25 04:25 MATILDE PARKS MD Jun 18, 2025 12:45
--- NOTE | 2025-06-18 14:15 | DS ---
Discharge Summary Hospital Course Summary: The patient is a 84 year old female with a history of chronic heart failure with reduced ejection fraction, AICD, paroxysmal atrial fibrillation on Eliquis, ESRD on hemodialysis-MWF, hypertension, diabetes mellitus, hyperlipidemia and hypothyroidism who presented to the ED with complaints of shortness of breath and palpitations. Dialysis was stopped and the patient was transferred to the hospital for further evaluation. On admission, patient was hemodynamically stable and was maintained on2 L nasal cannula. EKG showed ventricular pacing with underlying sinus rhythm. Chest x- ray revealed mild pulmonary congestion and small bilateral pleural effusions consistent with mild CHF exacerbation. BNP was more than 5000 and troponin was mildly elevated 158-183-167. Laboratory evaluation was notable for chronic anemia and thrombocytopenia likely secondary to ESRD. The patient was admitted for management of acute on chronic combined systolic and diastolic heart failure. She was placed on supplemental oxygen, continued on her GDMT with Entresto and Cardiology was consulted. Due to intra dialytic hypotension, both metoprolol and Entresto were temporarily held and midodrine 5 mg p.o. was started on dialysis days. Cardiology later recommended resuming low-dose Entresto as tolerated and continue to hold beta jim. Nephrology continued scheduled hemodialysis for volume management, achieving gradual improvement in pulmonary congestion and dyspnea. One episode of intra dialytic hypotension occurred on 06/16/2025 which resolved promptly after IV fluids and albumin administration. No further hemodynamic instability occurred afterwards. Thrombocytopenia and anemia were monitored throughout hospitalization, remaining stable without evidence of bleeding. Patient's hypothyroidism was managed with continuation of [id number] mcg daily. She remained on Eliquis 2.5 mg b.i.d. for atrial fibrillation. By 06/17/2025, patient was clinically euvolemic, hemodynamically stable, ambulating without distress and maintaining oxygen saturation on 2 L nasal cannula. Cardiology and Nephrology cleared her for discharge. Data Coder Operator(s): NEPHROLOGY CONSULTATION NOTE Date of Service: Jun 13, 2025 Reason for Consultation: [ ESRD on Hemodialysis MWF ] Requesting Physician: [ Dr. Hoffmann ] ASSESSMENT: [ ESRD on hemodialysis Pulmonary congestion/small bilateral pleural effusions Acute on chronic CHF Elevated BNP greater than 5000 Hypertroponinemia 158 Anemia of chronic disease Hyperphosphatemia Hypoalbuminemia ] PLAN: [ 1. ESRD on hemodialysis- resume routine hemodialysis MWF, 300 blood flow rate is 600 dialysate flow rate, 1L UF as tolerated, 2K and 2.5 Ca bath pending lab redraw, fluid restriction of 1.2 L, renal dialysis diet. 2. Acute on chronic CHF/pulmonary congestion/bilateral effusions- proceed with UF; cardiology following. Patient uses midodrine for bp support. 3. Anemia- keep hemoglobin above 10. 4. Hyperphosphatemia- trend labs. 5. Hypoalbuminemia-trend labs. ] Visit was rendered and documented by Lai Segura, MSN, WHEEL WORKER, CLAY DRY PRESS HELPER-C and completed in collaboration with supervising physician Janneth Mast MD Electronically Signed by: LAI SEGURA [facility] [id number] Electronically Co-Signed by: JANNETH MAST MD06/14/25 1635 NEPHROLOGY PROGRESS NOTE ASSESSMENT: [ ESRD on hemodialysis Pulmonary congestion/small bilateral pleural effusions Acute on chronic CHF Elevated BNP greater than 5000 Hypertroponinemia 158 Anemia of chronic disease Hyperphosphatemia Hypoalbuminemia ] PLAN: [ 1. ESRD on hemodialysis- continue routine hemodialysis MWF, 300 blood flow rate is 600 dialysate flow rate, 1L UF as tolerated, fluid restriction of 1.2 L, renal dialysis diet. Patient uses midodrine for bp support. 2. Acute on chronic CHF/pulmonary congestion/bilateral effusions- proceed with UF; cardiology following. Patient uses midodrine for bp support. Recent medication adjustments by cardiology team. 3. Anemia- keep hemoglobin above 10. 4. Hyperphosphatemia- trend labs. 5. Hypoalbuminemia-trend labs. ] This visit was rendered and documented by Lai Segura, MSN, WHEEL WORKER, CLAY DRY PRESS HELPER-C and completed in collaboration with supervising physician Janneth Mast MD. Electronically Signed by: LAI SEGURA [facility] [id number] Electronically Co-Signed by: [facility] CARDIOLOGY CONSULTATION REPORT Cardiology consultation note dictated for Bre Miramontes MD Primary magnet placer: Netta Holden MD Date Patient Seen: Jun 13, 2025 Requesting Physician: DILLON Schwartz Reason for Consultation: CHF History of Present Illness: This is an 84-year-old female with a past medical history of complete heart block status post dual-chamber pacemaker inserted on 01/13/2019 with a Medronic biventricular ICD upgrade on 05/03/2025, paroxysmal atrial fibrillation on chronic anticoagulation with Eliquis, hypertension, hypothyroidism, interstitial fibrosis, ESRD on HD MWF, midodrine therapy before for hemodialysis MWF, normal Lexiscan stress test on 08/26/2023, normal coronary arteries by [facility] on 05/02/2025, nonischemic cardiomyopathy, and 2D echocardiogram on 04/29/2025 with an LVEF of 20-25%, global hypokinesis, stage III diastolic dysfunction, moderately dilated left atrium, [id number] mitral regurgitation, and a trace pericardial effusion with fibrin or clot noted who presented to the ED with complaints of shortness of breath and palpitations. Cardiology has been consulted for CHF. While in hemodialysis, the patient began experience palpitations with shortness of breath for approximately 15 minutes. Dialysis was stopped 1 hour early in the patient was sent to the ER. BNP on admission was greater than 5000. Chest x-ray demonstrated small bilateral pleural effusions with pulmonary vascular congestion. Troponin of 158, 183, and 167. EKG on admission demonstrated normal sinus rhythm with a heart rate of 84bpm, with IVCD. The patient denied chest pain, chest pressure, dizziness, nausea, vomiting, or syncope. She has not had a recurrence of palpitations. She states she follows a fluid restriction of 3 water bottles per day that are approximately 12-16 oz in size, a low-sodium diet, and has not skipped hemodialysis. Impression and Plan: Acute on chronic combined systolic and diastolic heart failure Palpitations Troponin elevation in the setting of acute CHF CHB s/p PPM inserted on 01/13/2019 with a Medronic biventricular ICD upgrade on 05/03/2025 Normal coronary arteries by [facility] on 05/02/2025 Nonischemic cardiomyopathy (LVEF of 20 25% with stage III diastolic dysfunction via 2D echo on 04/29/2025) Normal Lexiscan stress test on 08/26/2023 Paroxysmal atrial fibrillation on chronic anticoagulation with Eliquis Hypertension Hypothyroidism Interstitial fibrosis ESRD on HD MWF Midodrine therapy before for hemodialysis MWF Acute on chronic combined systolic and diastolic heart failure BNP > 5000 Chest x-ray demonstrated small bilateral pleural effusions with pulmonary vascular congestion Elevated Troponin of 158 and 183, and 167 -Continue GDMT: Entresto 24-26 mg, 0.5 tablets b.i.d. and transition from Metoprolol tartrate 12.5 mg b.i.d. to Toprol 25mg daily -Recommend fluid removal via hemodialysis. Primary team has ordered Lasix 20mg IV daily. Palpitations The patient endorsed 15 minutes of palpitations accompanied by shortness of breath in hemodialysis Device interrogation on 05/24/2025 demonstrated normal device function -Pending device interrogation Paroxysmal atrial fibrillation Telemetry currently demonstrating V pacing hr 70's -Resume Eliquis 2.5mg bid and Toprol 25mg daily LETICIA ROLON Jun 13, 2025 10:13 BRE MIRAMONTES MD Jun 13, 2025 12:24 Electronically Signed by: LETICIA ROLON [facility] 1049 Electronically Co-Signed by: BRE MIRAMONTES MD06/13/25 1224 Addendum: BRE MIRAMONTES MD on 06/13/25 @ 13:12 I have stopped her metoprolol and entresto due to hypotension during dialysis. We will assess her need for midodrine during dialysis tomorrow with omitting both BP meds she has been taking. Medtronic device function: Normal BiV ICD function, Paroxysmal atrial dysrhythmias May 31- V-rate controlled Before discharge, she will need cardiac clearance for relocation of her port. Addendum# 1 <Electronically signed by BRE MIRAMONTES MD> 06/13/25 1314 CARDIOLOGY PROGRESS NOTE The patient continued to do well today. She is hemodynamically stable with good blood pressures and heart rate. She is tolerating Entresto. Plan: The patient can be discharged home today. She is pending home oxygen delivery. She needs to follow up with Dr. Holden at [facility]. Vitals/Labs MATILDE PARKS MD Jun 18, 2025 12:45 Electronically Signed by: MATILDE PARKS MD06/18/25 1245 Electronically Co-Signed by: Procedure(s): PATIENT: RAGHU PERKINS MR#: [id number] : 1940 SEX: F AGE: 84 LOCATION: ED ORDER 05 STATUS: REG ER REPORT#: [id number] SERVICE 04 REASON: PALPITATION ORDERING PHYSICIAN: RHEINER,JOSE G P MEAL COOK PROCEDURE: CXR1VW - CHEST 1VW EXAM: XR Chest, 1 View. CLINICAL HISTORY: 84-year-old female with palpitation. COMPARISON: XR Chest 04/26/25 07:26 FINDINGS: LUNGS: Trace atelectasis/infiltrate. Mild pulmonary congestion suggesting mild congestive heart failure. PLEURAL SPACES: Small bilateral pleural effusions. No pneumothorax. HEART: Moderate cardiomegaly. Left side pacemaker. BONES: No acute osseous abnormality. LINES AND TUBES: Right internal jugular dialysis catheter. IMPRESSION: 1. Mild pulmonary congestion and small bilateral pleural effusions, suggesting mild congestive heart failure. 2. Moderate cardiomegaly. 3. Left side pacemaker and right internal jugular dialysis catheter in place. 4. Changes overall similar compared to prior chest x-ray 07:26 04/26/25. /[place] DICTATED BY: NURIA IRWIN MD DATE: 06/12/251951 ELECTRONICALLY SIGNED BY: NURIA IRWIN MD DATE: 06/12/251951 PATIENT: RAGHU PERKINS ACCT: [id number] LOC: [facility] U: [id number] AGE/SX: 84/F ROOM: [facility] RE06/12/[address]: MELVIN PHILLIPS MD : 1940 BED: 1 DIS: STATUS: ADM IN TLOC: SPEC: [id number] MARLA: 06/12/25 STATUS: COMP REQ: [id number] RECD: 06/12/[address]: JOSE G KWON SOURCE: BLOOD ENTR: 06/12/[address]: BUCK VASQUEZ MD SPDESC: FELIPA KILPATRICK MD ORDERED: BLOOD CULTURE COMMENTS: What is the Source? BLOOD Procedure Result Alma Delia Date-Time BLOOD CULT Final 06/17/25-174 NO GROWTH AFTER 5 DAYS Assessment/Plan: ASSESSMENT: Acute on chronic combined systolic and diastolic heart failure, POA Chronic elevated troponin in the setting of acute CHF POA Paroxysmal atrial fibrillation, POA. Acute thrombocytopenia POA Chronic anemia due to CKD POA End-stage renal disease on hemodialysis POA Cardiac pacemaker /AICD status POA Hypothyroidism POA Hyperlipidemia POA Diabetes POA Discharge Instructions: Follow-up with PCP within 3-4 days. Follow-up with cardiology in 1 week. Patient was advised to stop Entresto on days of dialysis (MWF) as per cardiology recommendation Patient advised to take midodrine 5mg PO on days of dialysis (MWF) as per cardiology recommendation Advised the patient to discontinue metoprolol, as per cardiology recommendation. Continue O2 therapy at home, as directed. Monitor for lightheadedness, palpitations, hypotensive episodes, worsening shortness of breath, chest pain, and seek immediate medical attention. Home Medications: Active Scripts Midodrine HCl (Midodrine HCl) 5 Mg Tablet, 5 MG PO QMOWEFR for 30 Days, #30 TAB Prov:GERRI QUIÑONES MD 06/17/25 Sacubitril/Valsartan (Entresto 24 mg-26 mg Tablet) 24 Mg-26 Mg Tablet, 1 TAB PO BID for 30 Days, #60 TAB 0 Refills Prov:GERRI QUIÑONES MD 06/17/25 Reported Medications Gabapentin (Gabapentin) 100 Mg Capsule, 1 CAP PO BID for 30 Days, #90 CAP 0 Refills 06/13/25 Linaclotide (Linzess) 72 Mcg Capsule, 1 CAP PO DAILY 04/27/25 Ondansetron (Ondansetron Odt) 4 Mg Tab.rapdis, 4 MG PO Q4HPRN PRN for NAUSEA/VOMITING, TAB 04/24/25 Pantoprazole Sodium (Pantoprazole Sodium) 20 Mg Tablet.dr, 20 MG PO DAILY, TAB 04/24/25 Ergocalciferol (Vitamin D2) (Vitamin D2) 1,250 Mcg (19291 Unit) Capsule, 1250 MCG PO QWEEK, CAP 04/24/25 Atorvastatin Calcium (LIPITOR) 20 Mg Tab, 20 MG PO HS, TAB 04/24/25 Escitalopram Oxalate (Escitalopram Oxalate) 5 Mg Tablet, 5 MG PO HS, TAB 04/24/25 Levothyroxine Sodium (Levothyroxine) 75 Mcg Capsule, 75 MCG PO ACBKFST, CAP 04/24/25 Albuterol Sulfate (Ventolin Hfa/Proventil Hfa/Proair Hfa) 90 Mcg Puff, 1-2 PUFF IH Q4PRN PRN for SHORTNESS OF BREATH/WHEEZING, INHALER 04/24/25 Apixaban (Eliquis) 2.5 Mg Tablet, 2.5 MG PO BID, TAB 01/19/25 Folic Acid/Vitamin B Comp W-C (Salud-Miriam Tablet) 0.8 Mg Tablet, 1 TAB PO DAILY 12/28/24 Discontinued Reported Medications Metoprolol Tartrate (Metoprolol Tartrate) 25 Mg Tablet, 12.5 MG PO BID, TAB 04/24/25 Iron Fum & P/FA/Vit B & C No.9 (Integra Plus Capsule) 125 Mg Iron-1 Mg Capsule, 1 EACH PO DAILY, CAP 04/24/25 Midodrine HCl (Midodrine HCl) 10 Mg Tablet, 10 MG PO QMOWEFR, TAB BEFORE HEMODIALYSIS 04/24/25 New Medications: Midodrine HCl (Midodrine HCl) 5 Mg Tablet 5 MG PO QMOWEFR for 30 Days, #30 TAB Changed Medications: Sacubitril/Valsartan (Entresto 24 mg-26 mg Tablet) 24 Mg-26 Mg Tablet 1 TAB PO BID for 30 Days, #60 TAB 0 Refills (Changed from: 0.5 TAB) Continued Medications: Albuterol Sulfate (Ventolin Hfa/Proventil Hfa/Proair Hfa) 90 Mcg Puff 1-2 PUFF IH Q4PRN PRN for SHORTNESS OF BREATH/WHEEZING, INHALER Apixaban (Eliquis) 2.5 Mg Tablet 2.5 MG PO BID, TAB Atorvastatin Calcium (Lipitor) 20 Mg Tab 20 MG PO HS, TAB Ergocalciferol (Vitamin D2) (Vitamin D2) 1,250 Mcg (24733 Unit) Capsule 1250 MCG PO QWEEK, CAP Escitalopram Oxalate (Escitalopram Oxalate) 5 Mg Tablet 5 MG PO HS, TAB Folic Acid/Vitamin B Comp W-C (Salud-Miriam Tablet) 0.8 Mg Tablet 1 TAB PO DAILY Gabapentin (Gabapentin) 100 Mg Capsule 1 CAP PO BID for 30 Days, #90 CAP 0 Refills Levothyroxine Sodium (Levothyroxine) 75 Mcg Capsule 75 MCG PO ACBKFST, CAP Linaclotide (Linzess) 72 Mcg Capsule 1 CAP PO DAILY Ondansetron (Ondansetron Odt) 4 Mg Tab.rapdis 4 MG PO Q4HPRN PRN for NAUSEA/VOMITING, TAB Pantoprazole Sodium (Pantoprazole Sodium) 20 Mg Tablet.dr 20 MG PO DAILY, TAB Discontinued Medications: Metoprolol Tartrate (Metoprolol Tartrate) 25 Mg Tablet 12.5 MG PO BID, TAB Time spent arranging discharge: 31-60 minutes ATTESTATION BY PHYSICIAN I have seen and examined the patient. I reviewed the documentation, medical decision making, and treatment plan as noted by the resident physician above. I agree with the findings and plan of care. MONROE STEELE MD, MUHAMMAD H MD Jun 18, 2025 14:15
--- NOTE | 2025-06-18 15:32 | NUR ---
PATIENT DISCHARGED. PATIENT WAS EDUCATED ON THE IMPORTANCE OF TAKING MEDICATIONS PRESCRIBED BY . PATIENT WAS EDUCATED ON HOLDING ENTRESTO ON DIALYSIS DAYS AND TAKING MIDRODRINE ON DIALYSIS DAYS. STOP TAKING METOPROLOL PER CARDIOLOGY TEAM. IF ANY LIGHTHEADEDNESS OR SHORTNESS OF BREATH SEEK MEDICAL ATTENTION. PATIENT VERBALIZED UNDERSTANDING AND IV WAS REMOVED WITHOUT COMPLICATIONS. PATIENT IS CURRETLY AWAITING FOR DAUGHTER TO ARRIVE TO EDUCATE ON HOME 02 USAGE TO DAUGHTER AND PATIENT.
--- NOTE | 2025-06-18 17:45 | NUR ---
RT CAME BY AND EDUCATED PATIENT ON HOME 02 USAGE. PATIENT AND FAMILY VERBALIZED UNDERSTANDING.
[2025-06-20] MEDS ORDERED: ERGOCALCIFEROL (VITAMIN D2) 50,000 UNIT CAPSULE PO SCH (09:00)
--- NOTE | 2025-06-21 08:20 | PN ---
NEPHROLOGY FOLLOWUP NOTE INTERVAL HISTORY: The patient was evaluated this morning. No acute events reported overnight; although, the patient did have an episode of hypotension corresponding to episode of on dialysis treatment yesterday. This morning, the patient is awake, oriented. PHYSICAL EXAMINATION: CURRENT VITAL SIGNS: Temperature 98.4, pulse 78, blood pressure 133/70, respiratory rate 18, satting 98%, currently on 2 L nasal cannula. GENERAL: The patient is awake, alert, oriented, in no apparent distress. CARDIAC: Regular rate and rhythm. CHEST: Clear. ABDOMEN: Soft and nontender. EXTREMITIES: No edema. LABORATORY DATA: White count is 6.7, hemoglobin 10.0, hematocrit 30.2, and platelet count is 109. Sodium 138, potassium 4.0, chloride 97, bicarbonate 29, BUN is 39, creatinine 5.2, and calcium is 8.5. MICRO: Blood cultures x 2, no growth to date. ASSESSMENT: * End-stage renal disease, on chronic hemodialysis. * Acute pulmonary edema. * Acute on chronic systolic heart failure. * Anemia of chronic kidney disease. * Hyperphosphatemia. * History of paroxysmal atrial fibrillation. * Suppressed EF. PLAN: * End-stage renal disease. The patient will continue routine dialysis every Thursday, Thursday, and Thursday as per outpatient prescription. Renal diet and fluid restriction. Did discuss with nursing staff only 1 L UF given, the patient prone to hypotension during treatment. Continue renal diet, fluid restriction. Continue to follow closely. * Acute pulmonary edema, clinically much improved. Ultrafiltration 1 L only with dialysis given hypotension. The patient will continue with midodrine with treatment to avoid hypotension. Continue fluid restriction 1 L daily. * Acute on chronic systolic heart failure. Again, ultrafiltration as tolerated dialysis. Reviewed sodium and fluid restriction with the patient. We will followup with Cardiology. * Paroxysmal atrial fibrillation. Managed by Cardiology. We will continue to follow recommendations. * Suppressed EF. Again continue to follow recommendations by Cardiology. On Entresto. Per recommendations, the patient will take midodrine on dialysis days to avoid hypotension. TID: [id number] RECEIPT: [id number]
== END 2025-06-18 15:32 | disposition home or self-care (01) | DRG 291 ==
LOC: EDH 16:47 → EDHIP 19:58 → 4AH 06-13 00:22
PROVIDERS: ADMIT Internal Medicine; ATTEND Internal Medicine
PROC: 5A1D70Z Performance of Urinary Filtration, Intermittent, Less than 6 Hours Per Day (ICD-10-PCS; principal; 2025-06-14)
PROC: 5A1D70Z Performance of Urinary Filtration, Intermittent, Less than 6 Hours Per Day (ICD-10-PCS; 2025-06-16)
DX: I13.2 Hypertensive heart and chronic kidney disease with heart failure and with stage 5 chronic kidney disease, or end stage renal disease (principal); I50.43 Acute on chronic combined systolic (congestive) and diastolic (congestive) heart failure; N18.6 End stage renal disease; D69.6 Thrombocytopenia, unspecified; D63.1 Anemia in chronic kidney disease; E03.9 Hypothyroidism, unspecified; E11.22 Type 2 diabetes mellitus with diabetic chronic kidney disease; E78.00 Pure hypercholesterolemia, unspecified; I95.3 Hypotension of hemodialysis; I42.8 Other cardiomyopathies; I34.0 Nonrheumatic mitral (valve) insufficiency; E88.09 Other disorders of plasma-protein metabolism, not elsewhere classified; E83.39 Other disorders of phosphorus metabolism; F32.A Depression, unspecified; F41.9 Anxiety disorder, unspecified; I48.0 Paroxysmal atrial fibrillation; Z95.810 Presence of automatic (implantable) cardiac defibrillator; Z79.01 Long term (current) use of anticoagulants; Z79.899 Other long term (current) drug therapy; Z82.49 Family history of ischemic heart disease and other diseases of the circulatory system; Z83.3 Family history of diabetes mellitus; Z90.710 Acquired absence of both cervix and uterus; Z99.2 Dependence on renal dialysis
CPT/HCPCS: 36415; 71045; 80048; 80053; 82948; 83605; 83735; 83880; 84100; 84484; 85025; 85027; 86704; 86706; 86803; 87040; 87340; 87426; 90935; 93005; 94760; 99285; G0378; J1644; J1938; P9046